=== PATIENT | female | born 1980 | race Caucasian/White ===

== ENCOUNTER 2016-07-19 18:30 | Emergency (ER) | payer BC, OTHER ==
[~2016-07-19] VITALS: Ht 162.6 cm; Wt 53.7 kg
[~2016-07-19 18:30] MED LIST: CALC1CHW47 PO; CHOL100027 PO; CLIN1LOT5 TD; DICY10CA55 PO; HYDR25SU20 PR; LEVO25TA PO; OMEGCAP2 PO; TRET1CRE34 TD
[2016-07-19 18:40] VITALS: BP 112/70; TEMP 36.8; Ht 162.6 cm; Wt 53.7 kg
[2016-07-19] MEDS ORDERED: CLIN300C10 PO (19:22)
[2016-07-19 20:03] VITALS: PULSE 67; O2SAT 99
--- NOTE | 2016-07-20 01:09 | EMERGENCY ROOM VISIT NOTE ---
ED Visit Note First contact with patient: 18:44 CHIEF COMPLAINT: Dental pain. HISTORY OF PRESENT ILLNESS: Ms. Chavez is a 36-year-old white female who ambulates into the ED accompanied by her complaining of right maxillary dental pain. She reports a progressive dental pain for the last 24 hours over the right maxillary wisdom teeth area. She reports her pain started gradually and increased in intensity. She reports that when she felt the area with her tongue she felt a lump in the gumline. She reports she pushed on this area, felt a popping sensation and the sensation of flowing warm fluid in the area and questions if she ruptured a dental abscess. She also reports she is having pain in the area. She describes it as an achy pain. She rates her discomfort 4/10. The pain is nonradiating. She has been using Anbesol with mild relief of her discomfort. Her pain worsens with palpation and chewing. She denies any associated fevers, chills, facial swelling, recent dental trauma, recent sore throat/upper respiratory tract symptoms, difficulty swallowing, difficulty talking. REVIEW OF SYSTEMS: As noted above in History of Present Illness. 8 body systems were reviewed with this patient and found to be negative unless noted above otherwise. PMH: Unspecified stomach disorder, right sided pulmonary emboli and hypothyroidism, status post section 2. CURRENT MEDICATION: Probiotics, levothyroxine.. ALLERGIES TO MEDICATION: Amoxicillin, hydromorphone, macrolides, sulfa, penicillin, mesalamine, nitrofurantoin. SOCIAL HISTORY: Patient is not employed; she lives with her family and feels safe in her home environment; she denies tobacco and alcohol use. PHYSICAL EXAM: Vital Signs: Date Time Temp Pulse Resp B/P Pulse Ox O2 Delivery O2 Flow Rate FiO2 07/19/16 20:03 67 18 99 Room Air 07/19/16 18:40 36.8 70 18 112/70 99 Room Air General: 36 year-old white female in mild distress due to pain, nontoxic appearing, afebrile and hemodynamically stable. Neurological: Awake, alert and oriented to person, place and time. Answering questions appropriately and following commands. Normal gait. Good hand eye coordination. No focal motor or sensory deficits. Skin: Warm, dry and pink. No soft tissue swelling or lesions. HEENT: Atraumatic and normocephalic. Oral cavity is moist and pink. Airway is patent. Uvula is midline and no abscesses are seen. Speech is normal. No drooling. Over the left gingiva there is a small wound in the mucosa of the cheek; patient reports she accidentally bit herself while chewing. No local gingiva erythema or edema. There is no obvious signs of dental decay. The gingiva is still covering the most posterior wisdom teeth. No abscesses, erythema or edema identified. No cervical or submandibular lymphadenopathy. ED COURSE: Patient is assessed as noted above. I had a lengthy conversation with the patient specifically addressing if this was truly an abscess that was ruptured or if this is possible just the eruption/ impaction of her wisdom teeth. Patient is educated about his findings and instructed on her treatment plan; she verbalizes understanding and agreement with this plan. CLINIC IMPRESSION: Dental pain. DISPOSITION: Patient discharged home in stable condition; prior to departure she was reassessed and subjectively reported she was feeling better and rated her discomfort 2/10.. PLAN: Patient was encouraged to alternate ibuprofen and acetaminophen as needed for pain. Patient was prescribed clindamycin 300 mg 4 times a day for 10 days. Patient was encouraged to hold this prescription for any development of facial swelling or fevers. Patient does report she has a follow-up visit at a local dental clinic in 24-48 hours; she was encouraged to keep this appointment. Patient was encouraged to return the ED for uncontrolled pain, facial swelling or fevers or any new/concerning symptoms.
[2016-07-22] MEDS ORDERED: LACT1CAP6 PO (02:26)
== END 2016-07-19 20:03 | disposition home or self-care (01) ==
LOC: C.EDB 18:31 → C.EDD 20:03
DX: K08.89 Other specified disorders of teeth and supporting structures (principal); Z86.711 Personal history of pulmonary embolism; E03.9 Hypothyroidism, unspecified; Z79.899 Other long term (current) drug therapy

== ENCOUNTER 2016-07-22 18:40 | Emergency (ER) | payer BC ==
[~2016-07-22] VITALS: Ht 162.6 cm; Wt 51.3 kg
[~2016-07-22 18:40] MED LIST changes: -CALC1CHW47 PO; -CHOL100027 PO; -CLIN1LOT5 TD; +CLIN300C10 PO; -DICY10CA55 PO; -HYDR25SU20 PR; +LACT1CAP6 PO; -LEVO25TA PO; -OMEGCAP2 PO; -TRET1CRE34 TD
[2016-07-22 18:52] VITALS: TEMP 36.9; Ht 162.6 cm; Wt 51.3 kg
[2016-07-22] MEDS ORDERED: CEFTRIAXONE SOD INJ 1 GM ADDVIAL IV STA (19:15)
[2016-07-22] MEDS ORDERED: LEVO75TA5 PO (19:30)
[2016-07-22 19:57] LABS: BASO % 0.3 %; BASO ABS # 0.03 K/uL (0-0.2); COMPLETE YES; EOS % 1.2 %; HEMATOCRIT 38.5 % (37-47); IG% 0.1 %; LYMPH % 13.4 %; LYMPH ABS # 1.28 K/uL (1.2-3.4); MEAN CELL VOLUME 98.7 fL (80-100); MEAN CORPUSCULAR HEMOGLOBIN 34.1 pg (25-34); MEAN CORPUSCULAR HGB CONC 34.5 g/dl (32-36); MEAN PLATELET VOLUME 10.5 fL (7.4-10.4); MONO % 10.6 %; NEUT % 74.4 %; PLATELET COUNT 276 K/uL (130-400); WHITE BLOOD COUNT 9.53 K/uL (4.8-10.8)
[2016-07-22] MEDS ORDERED: CEPH500C PO (20:18)
--- NOTE | 2016-07-22 20:21 | EMERGENCY ROOM VISIT NOTE ---
History First contact with patient: 18:54 Chief Complaint: FEVER Stated Complaint: FEVER,INFECTION History of Present Illness The patient is a 36 year old female who presents to the Emergency Room with complaints of left facial pain, fever and possible infection. The patient reports that she was here on Monday and diagnosed with a possible dental infection. She was provided a prescription for clindamycin which she reports is now starting to cause abdominal cramping and diarrhea. She does have an extensive history of GI issues, including C. difficile colitis. She has been taking a probiotic. The patient reports that she noticed an area of swelling between her left upper gum and cheek on Monday. She massaged it with her tongue and it popped. The patient reports that she has also had initial left sinus congestion that has also resolved. She denies any difficulty swallowing or fullness of the tongue/4 of her mouth. The patient was seen last night by her dentist who was also uncertain as to whether this could be pain from a wisdom tooth impaction or possible infection. X-rays were unclear as to the etiology of her pain. It was suggested that she continue with her clindamycin antibiotics, and they were going to try to set her up with an oral surgeon. The patient reports that she did have a temperature of nearly 100F this afternoon. She has taken Tylenol PM for her pain. The patient reports multiple antibiotic allergies and intolerances to pain medications. Review of Systems HEENT: Denies dizziness, visual problems, hearing loss, tinnitus. Denies difficulty swallowing. PULMONARY: Denies cough, shortness of breath, sputum production or hemoptysis. CARDIOVASCULAR: Denies chest pain, palpitations, dyspnea on exertion, orthopnea or peripheral edema. GASTROINTESTINAL: Denies diarrhea, constipation, nausea, vomiting, or abdominal pain. GENITOURINARY: Denies dysuria, frequency, urgency or nocturia. NEUROLOGIC: Denies history of epilepsy, CVA, TIA or chronic headaches. MUSCULOSKELETAL: Denies history of joint tenderness/swelling. SKIN: Denies rashes or lesions. PSYCHIATRIC: Denies history of depression or mental illness. ENDOCRINE: Denies history of diabetes or thyroid disorders. Past Medical/Surgical History Medical Problems: (1) Anti-thrombin III (2) Clostridium difficile colitis (3) Deep venous thrombosis (4) History of - section (5) Hypothyroidism (6) PRIMARY HYPERCOAGULABLE STATE (7) Pulmonary embolism Family History Unremarkable Social History Smoking Status: Never Smoker Alcohol Use: none Drug Use: none Marital Status: Housing Status: lives with family Occupation Status: employed Current/Historical Medications Scheduled Cephalexin Monohydrate (Keflex), 500 MG PO QID Clindamycin Hcl (Clindamycin Hcl), 1 CAP PO QID Lactobacillus (Probiotic), 1 CAP PO DAILY Levothyroxine Sodium (Levothyroxine Sodium), 75 MCG PO DAILY Allergies Coded Allergies: Sulfa Drugs (Verified Allergy, Severe, ANAPHYLAXIS, 03/23/12) Amoxicillin (Verified Allergy, Mild, rash, 03/23/12) Macrolides (Verified Allergy, Unknown, rash, 08/02/13) pt Nitrofurantoin (Verified Allergy, Unknown, 06/22/12) Penicillins (Verified Allergy, Unknown, 06/22/12) Hydromorphone (Verified Adverse Reaction, Mild, Pt states muscles in neck& all over become tight and painful, 06/22/12) Mesalamine (Verified Adverse Reaction, Unknown, multiple side effects, ) pt Physical Exam Vital Signs Date Time Temp Pulse Resp B/P Pulse Ox O2 Delivery O2 Flow Rate FiO2 07/22/16 18:52 36.9 95 18 113/70 96 Room Air Physical Exam CONSTITUTIONAL: Healthy and well nourished. Alert and oriented X 3 with positive affect. Patient does not appear acutely or toxic. HEENT: Normocephalic, atraumatic. Pupils equal, round and reactive. No facial edema or erythema noted. OROPHARYNX: Examination of the right maxillary teeth, gingiva, hard palate and buccal membranes does not show any erythema, fluctuance or pointing. She has no tenderness to palpation or percussion of the dentition. No evidence for a pharyngeal abscess or Aly's angina. NECK: Full active range of motion without discomfort. RESPIRATORY: Clear to auscultation bilaterally with no wheezing, crackles, rhonchi or stridor. CARDIOVASCULAR: Regular rate and rhythm with no murmurs, rubs or gallops. GASTROINTESTINAL: Bowel sounds present in all quadrants. Soft and nontender to palpation. MUSCULOSKELETAL: Full range of motion of all joints without discomfort. INTEGUMENTARY: No rash or other significant dermatologic conditions noted. NEUROLOGIC: Facial sensations are intact. Medical Decision & Procedures Laboratory Results 07/22/16 19:30 Red Blood Count 3.90, Mean Corpuscular Volume 98.7, Mean Corpuscular Hemoglobin 34.1, Mean Corpuscular Hemoglobin Concent 34.5, Mean Platelet Volume 10.5, Neutrophils (%) (Auto) 74.4, Lymphocytes (%) (Auto) 13.4, Monocytes (%) (Auto) 10.6, Eosinophils (%) (Auto) 1.2, Basophils (%) (Auto) 0.3, Neutrophils # (Auto ) 7.09, Lymphocytes # (Auto) 1.28, Monocytes # (Auto) 1.01, Eosinophils # (Auto ) 0.11, Basophils # (Auto) 0.03 Test 07/22/16 19:30 White Blood Count 9.53 K/uL (4.8-10.8) Red Blood Count 3.90 M/uL (4.2-5.4) Hemoglobin 13.3 g/dL (12.0-16.0) Hematocrit 38.5 % (37-47) Mean Corpuscular Volume 98.7 fL (80-100) Mean Corpuscular Hemoglobin 34.1 pg (25-34) Mean Corpuscular Hemoglobin Concent 34.5 g/dl (32-36) Platelet Count 276 K/uL (130-400) Mean Platelet Volume 10.5 fL (7.4-10.4) Neutrophils (%) (Auto) 74.4 % Lymphocytes (%) (Auto) 13.4 % Monocytes (%) (Auto) 10.6 % Eosinophils (%) (Auto) 1.2 % Basophils (%) (Auto) 0.3 % Neutrophils # (Auto) 7.09 K/uL (1.4-6.5) Lymphocytes # (Auto) 1.28 K/uL (1.2-3.4) Monocytes # (Auto) 1.01 K/uL (0.11-0.59) Eosinophils # (Auto) 0.11 K/uL (0-0.5) Basophils # (Auto) 0.03 K/uL (0-0.2) RDW Standard Deviation 44.1 fL (36.4-46.3) RDW Coefficient of Variation 12.2 % (11.5-14.5) Immature Granulocyte % (Auto) 0.1 % Immature Granulocyte # (Auto) 0.01 K/uL (0.00-0.02) The above labs were reviewed. Medications Administered Medications (Trade) Dose Ordered Sig/Aida Route Start Time Stop Time Status Last Admin Dose Admin Ceftriaxone Sodium (Rocephin Inj) 1 gm NOW STAT IV 07/22/16 19:15 07/22/16 19:17 DC 07/22/16 19:42 1 GM ED Course Patient history and physical exam were performed. Nurse's notes were reviewed. Vital signs were reviewed and were normal. The patient is afebrile, normotensive and not tachycardic. Because of my concern for other possible infectious etiology such as sinusitis or maxillary infection, I did suggest performing a CT of the facial bones. The patient and mother politely declined, stating that she has had multiple CTs in the past, and does not want any additional unnecessary radiation. I did explain that if his is indeed an infectious etiology, the treatment should be relatively the same with antibiotics. Unfortunately, the patient has multiple antibiotic allergies. I did suggest checking some lab work and administering IV Rocephin and Keflex by mouth as an outpatient. The patient and mother were in agreement. IV access was established, and labs were drawn. The patient received Rocephin 1 g IVP without any adverse reaction. Review of labs shows no significant findings. The patient will be provided a prescription for Keflex 500 mg 4 times a day 7 days. The patient was encouraged to continue with Tylenol with Benadryl as needed for pain. I did suggest that she discuss further management with her dentist. She was instructed to return to the emergency department for any progressively worsening situation. The patient was happy with plan of care, and voiced understanding of all discharge instructions. Impression Primary Impression: Dental infection Departure Information Prescriptions Cephalexin Monohydrate (Keflex) 500 Mg Cap 500 MG PO QID for 7 Days, #28 CAP Prov: Luke Rodriguez PA 07/22/16 Referrals Deidre Huynh M.D. (PCP) Patient Instructions My [facility]
[2016-07-22 20:22] LABS: BUN/CREATININE RATIO 19.9 (10-20); CREATININE 0.79 mg/dl (0.60-1.20); POTASSIUM 4.1 mmol/L (3.5-5.1)
[2016-07-22] MEDS ORDERED: CEPHALEXIN 500MG HOME PACK 1 EA BTL PO ONE (20:30)
[2016-07-22 20:47] VITALS: BP 109/55; PULSE 80; O2SAT 97
== END 2016-07-22 20:49 | disposition home or self-care (01) ==
LOC: C.EDB 18:40 → C.EDC 20:49
DX: K04.7 Periapical abscess without sinus (principal); D68.59 Other primary thrombophilia; Z86.718 Personal history of other venous thrombosis and embolism; E03.9 Hypothyroidism, unspecified; Z86.711 Personal history of pulmonary embolism; Z79.899 Other long term (current) drug therapy

== ENCOUNTER 2017-03-15 14:54 | Emergency (ER) | payer BC ==
[~2017-03-15] VITALS: Ht 162.6 cm; Wt 52.0 kg
[~2017-03-15 14:54] MED LIST changes: +LEVO75TA5 PO
[2017-03-15 14:58] VITALS: TEMP 36.7; Ht 162.6 cm; Wt 52.0 kg
[2017-03-15 15:45] LABS: BASO % 0.4 %; BASO ABS # 0.03 K/uL (0-0.2); COMPLETE YES; EOS % 1.3 %; HEMATOCRIT 40.6 % (37-47); IG% 0.1 %; LYMPH ABS # 1.59 K/uL (1.2-3.4); MEAN CORPUSCULAR HEMOGLOBIN 34.1 pg (25-34); MEAN CORPUSCULAR HGB CONC 33.7 g/dl (32-36); MEAN PLATELET VOLUME 10.5 fL (7.4-10.4); MONO % 8.2 %; PLATELET COUNT 311 K/uL (130-400); RED BLOOD COUNT 4.02 M/uL (4.2-5.4); WHITE BLOOD COUNT 7.94 K/uL (4.8-10.8)
--- NOTE | 2017-03-15 15:46 | EMERGENCY ROOM VISIT NOTE ---
History Report prepared by Jack: Liz Phan Under the Supervision of: Dr. Be Farley M.D. 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 She notes the chest pain is radiating to her shoulder blades and ribs underneath her breasts. She currently rates her pain a 2/10 in severity. She also notes her heart has been racing, though it is not skipping. She notes initially experiencing the pain in the first week of January when she was eating. She has seen her PCP, Dr. Huynh and was prescribed a protonic and sucralfate. She notes completing the sucralfate and the pain went away. She notes the pain returned two weeks ago while taking only the protonic and worsens with exertion, causing shortness of breath. She notes that relaxation relieves the pain. She recently had an endoscopy yesterday and the results came back clean, though the pain still persists. She has a history of hypothyroidism, PE, palpitations. She reports the PE was due to her control, back in Mar 2010. She was on Coumadin for a year following the PE. She denies any fevers, headaches, diaphoresis, abdominal pain, back pain, , recent travels, leg pain or swelling. She denies any history of cardiac or pancreatic problems. 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 Review of Systems See HPI for pertinent positives & negatives. A total of 10 systems reviewed and were otherwise negative. Past Medical & Surgical Medical Problems: (1) Anti-thrombin III (2) Clostridium difficile colitis (3) Deep venous thrombosis (4) History of - section (5) Hypothyroidism (6) PRIMARY HYPERCOAGULABLE STATE (7) Pulmonary embolism Old medical records were reviewed. Nurse's notes were reviewed and I agree with. Family History No pertinent family history obtained. Social History Smoking Status: Never Smoker Alcohol Use: occasionally (wine once a week) Drug Use: none Marital Status: Housing Status: lives with family Occupation Status: employed Current/Historical Medications Scheduled Levothyroxine Sodium (Levothyroxine Sodium), 75 MCG PO DAILY Pantoprazole (Protonix), 40 MG PO DAILY Sucralfate (Carafate), 1 TAB PO QID Allergies Coded Allergies: Sulfa Drugs (Verified Allergy, Severe, ANAPHYLAXIS, 03/15/17) Amoxicillin (Verified Allergy, Mild, rash, 03/15/17) Macrolides (Verified Allergy, Unknown, rash, 03/15/17) pt Nitrofurantoin (Verified Allergy, Unknown, 03/15/17) Penicillins (Verified Allergy, Unknown, 03/15/17) Hydromorphone (Verified Adverse Reaction, Mild, Pt states muscles in neck& all over become tight and painful, 03/15/17) Mesalamine (Verified Adverse Reaction, Unknown, multiple side effects, 03/15/17) pt Physical Exam Vital Signs Date Time Temp Pulse Resp B/P (MAP) Pulse Ox O2 Delivery O2 Flow Rate FiO2 03/15/17 17:39 71 20 103/61 99 Room Air 03/15/17 15:45 95 Room Air 03/15/17 14:58 36.7 95 20 112/71 97 Room Air Physical Exam General: Non-ill appearing young female in no acute distress. HEENT: Normal cephalic atraumatic. Pupils are equal round and reactive to light. Extraocular movements are intact. Oropharynx is pink with moist mucous membranes. No swelling of the mouth lips or tongue. Neck: Supple with a midline trachea. No meningeal signs or stiffness, no JVD or bruits. No Stridor. Chest: Clear to auscultation bilaterally. No wheezes or rhonchi. No increased work of breathing. Heart: regular rate and rhythm. Abdomen: Soft nontender, nondistended without rebound guarding or rigidity. Extremities: No cyanosis clubbing or edema. No calf tenderness or assymetry Spine/Back. Non tender to palpation. No CVA tenderness Skin: Good turgor without rashes. Neurologic exam: Cranial nerves two through 12 are intact. Motor and sensation are intact and symmetrical throughout. Medical Decision & Procedures ER Provider Diagnostic Interpretation: Radiology results as stated below per my review and radiologist interpretation: SINGLE VIEW CHEST CLINICAL HISTORY: Atypical chest pain. FINDINGS: An AP, portable, upright chest radiograph is compared to study dated 07/27/2013. The cardiomediastinal silhouette is unremarkable. The lungs and pleural spaces are clear. No pneumothorax is seen. The bony thorax is grossly intact. IMPRESSION: No active disease in the chest. Electronically signed by: Antoine Rosario M.D. 03/15/2017 4:05 PM Dictated Date/Time: 03/15/2017 4:05 PM Laboratory Results 03/15/17 15:28 Red Blood Count 4.02, Mean Corpuscular Volume 101.0, Mean Corpuscular Hemoglobin 34.1, Mean Corpuscular Hemoglobin Concent 33.7, Mean Platelet Volume 10.5, Neutrophils (%) (Auto) 70.0, Lymphocytes (%) (Auto) 20.0, Monocytes (%) ( Auto) 8.2, Eosinophils (%) (Auto) 1.3, Basophils (%) (Auto) 0.4, Neutrophils # ( Auto) 5.56, Lymphocytes # (Auto) 1.59, Monocytes # (Auto) 0.65, Eosinophils # ( Auto) 0.10, Basophils # (Auto) 0.03 03/15/17 15:28 Test 03/15/17 15:28 03/15/17 15:33 White Blood Count 7.94 K/uL (4.8-10.8) Red Blood Count 4.02 M/uL (4.2-5.4) Hemoglobin 13.7 g/dL (12.0-16.0) Hematocrit 40.6 % (37-47) Mean Corpuscular Volume 101.0 fL (80-100) Mean Corpuscular Hemoglobin 34.1 pg (25-34) Mean Corpuscular Hemoglobin Concent 33.7 g/dl (32-36) Platelet Count 311 K/uL (130-400) Mean Platelet Volume 10.5 fL (7.4-10.4) Neutrophils (%) (Auto) 70.0 % Lymphocytes (%) (Auto) 20.0 % Monocytes (%) (Auto) 8.2 % Eosinophils (%) (Auto) 1.3 % Basophils (%) (Auto) 0.4 % Neutrophils # (Auto) 5.56 K/uL (1.4-6.5) Lymphocytes # (Auto) 1.59 K/uL (1.2-3.4) Monocytes # (Auto) 0.65 K/uL (0.11-0.59) Eosinophils # (Auto) 0.10 K/uL (0-0.5) Basophils # (Auto) 0.03 K/uL (0-0.2) RDW Standard Deviation 46.0 fL (36.4-46.3) RDW Coefficient of Variation 12.6 % (11.5-14.5) Immature Granulocyte % (Auto) 0.1 % Immature Granulocyte # (Auto) 0.01 K/uL (0.00-0.02) Urine Test NEG (NEG) Anion Gap 5.0 mmol/L (3-11) Est Creatinine Clear Calc Drug Dose 94.8 ml/min Estimated GFR () 131.3 Estimated GFR (Non- 113.3 BUN/Creatinine Ratio 16.6 (10-20) Calcium Level 8.9 mg/dl (8.5-10.1) Total Bilirubin 0.6 mg/dl (0.2-1) Direct Bilirubin 0.1 mg/dl (0-0.2) Aspartate Amino Transf (AST/SGOT) 13 U/L (15-37) Alanine Aminotransferase (ALT/SGPT) 17 U/L (12-78) Alkaline Phosphatase 81 U/L (45-117) Total Creatine Kinase 77 U/L (26-192) Creatine Kinase MB < 0.5 ng/ml (0.5-3.6) Creatine Kinase MB Ratio (0-3.0) Total Protein 7.7 gm/dl (6.4-8.2) Albumin 3.9 gm/dl (3.4-5.0) Lipase 145 U/L (73-393) Thyroid Stimulating Hormone (TSH) 1.170 uIu/ml (0.300-4.500) Bedside D-Dimer > 450 ng/mlFEU (0-450) Bedside Troponin I < 0.030 ng/ml (0-0.045) Laboratory studies as stated above per my review. ECG Indication: chest pain Rate (beats per minute): 77 Rhythm: normal sinus Findings: no acute ischemic change, no ectopy Change: no significant change (compared to 08/02/2013) ED Course 1459: Past medical records reviewed. The patient was evaluated in room B5, and a complete history and physical examination were performed. 1655 I reassessed the patient at this time. I discussed the risks and benefits of the CT scan. She is feeling better and resting comfortably 1720: I reassessed the patient at this time. She does not want a CT scan at this time. She is feeling better and resting comfortably. I discussed the results and treatment plan with the patient. I answered all pertaining questions that she had. She expressed understanding and verbalized agreement. The patient will be discharged home. Medical Decision Differentials include, but are not limited to: cardiac disease, arrhythmia, thyroid disease, PE, GI, trauma, and electrolyte metabolic abnormality. This patient comes in as described above. She was placed in room B5. She is here for treatment and evaluation of chest pain is been going off and on since January. She had a recent GI workup with normal endoscopy yesterday as per the patient. She appears well and has stable vital signs. IV access established EKG was obtained as well as chest x-ray multiple blood testing. She was reassessed frequently. Her EKG does not show any acute ischemic changes and no change compared old. Chest x-ray was unremarkable and shows nothing to suggest congestive heart failure pneumonia or pneumothorax she's no acute electrolyte or metabolic abnormalities. Nothing to suggest acute thyroid problem. Her cardiac enzymes are not elevated. She does have a mildly elevated d-dimer at 610. In light of this I suggested we do a CAT scan to rule out PE. I talked to the patient and her mother at length she is very reluctant to have the CAT scan as she's had multiple CAT scans in the past as concerned about radiation. She had a PE many years ago while she was on control and says that this feels completely different. I explained to her that we cannot adequately rule out PE without the CAT scan. Certainly there is risk with radiation as well. She acknowledges this and wants to go home and follow-up with her doctor and have an echo and cardiac workup as she feels that's more likely the etiology. I think this is reasonable as I feel chance of PE is actually very low. Her symptoms may be related to GI or anxiety or musculoskeletal as well. I encourage her return if she reconsiders getting the CAT scan has worsening of symptoms, shortness of breath, any new problems or concerns. The patient and her mother were happy with plan and she was discharged to home. Medication Reconcilliation Current Medication List: was personally reviewed by me Blood Pressure Screening Patient's blood pressure: Normal blood pressure Impression Primary Impression: Substernal precordial chest pain Scribe Attestation The scribe's documentation has been prepared under my direction and personally reviewed by me in its entirety. I confirm that the note above accurately reflects all work, treatment, procedures, and medical decision making performed by me. Departure Information Dispostion Home / Self-Care Referrals Deidre Huynh M.D. (PCP) Forms Call Back Authorization, HOME CARE DOCUMENTATION FORM, IMPORTANT VISIT INFORMATION Patient Instructions My [facility] [employer] Additional Instructions Rest. Drink plenty of fluids Return if: Increasing pain, worsening symptoms, any new problems or concerns Follow-up with your doctor this week for recheck and have a referral to a hand twister
[2017-03-15] MEDS ORDERED: SUCR1TAB29 PO (15:48)
[2017-03-15] MEDS ORDERED: PANT40TA PO (15:48)
[2017-03-15 15:52] LABS: POINT OF CARE TROPONIN I < 0.030 ng/ml (0-0.045)
[2017-03-15 16:04] LABS: ALT/SGPT 17 U/L (12-78); BLOOD UREA NITROGEN 11 mg/dl (7-18); BUN/CREATININE RATIO 16.6 (10-20); CALCIUM 8.9 mg/dl (8.5-10.1); CARBON DIOXIDE 29 mmol/L (21-32); CHLORIDE 105 mmol/L (98-107); CREATININE 0.68 mg/dl (0.60-1.20); GLUCOSE 76 mg/dl (70-99); POTASSIUM 3.4 mmol/L (3.5-5.1); SODIUM 139 mmol/L (136-145)
--- NOTE | 2017-03-15 16:06 | DIAGNOSTIC IMAGING REPORT ---
SINGLE VIEW CHEST CLINICAL HISTORY: Atypical chest pain. FINDINGS: An AP, portable, upright chest radiograph is compared to study dated 07/27/2013. The cardiomediastinal silhouette is unremarkable. The lungs and pleural spaces are clear. No pneumothorax is seen. The bony thorax is grossly intact. IMPRESSION: No active disease in the chest. Electronically signed by: Antoine Rosario M.D. 03/15/2017 4:05 PM Dictated Date/Time: 03/15/2017 4:05 PM
[2017-03-15 16:15] LABS: ALKALINE PHOSPHATASE 81 U/L (45-117); AST/SGOT 13 U/L (15-37)
[2017-03-15] MEDS ORDERED: OPTIRAY 320 IV PRN (17:00)
[2017-03-15 17:39] VITALS: BP 103/61; PULSE 71; O2SAT 99
== END 2017-03-15 17:54 | disposition home or self-care (01) ==
LOC: C.EDB 14:56
DX: R07.1 Chest pain on breathing (principal); E03.9 Hypothyroidism, unspecified; Z86.711 Personal history of pulmonary embolism; Z86.718 Personal history of other venous thrombosis and embolism; Z79.899 Other long term (current) drug therapy; Z88.0 Allergy status to penicillin; Z88.1 Allergy status to other antibiotic agents; Z88.2 Allergy status to sulfonamides; Z88.5 Allergy status to narcotic agent; Z88.8 Allergy status to other drugs, medicaments and biological substances

== ENCOUNTER 2017-03-17 11:46 | Emergency (ER) | payer BC ==
[~2017-03-17] VITALS: Ht 162.6 cm; Wt 51.6 kg
[~2017-03-17 11:46] MED LIST changes: +PANT40TA PO; +SUCR1TAB29 PO
[2017-03-17 11:51] VITALS: TEMP 36.9; Ht 162.6 cm; Wt 51.6 kg
[2017-03-17] MEDS ORDERED: GI COCKTAIL PO STA (12:39)
[2017-03-17 12:42] LABS: BASO % 0.4 %; BASO ABS # 0.03 K/uL (0-0.2); COMPLETE YES; EOS % 1.5 %; HEMATOCRIT 39.9 % (37-47); IG% 0.3 %; LYMPH % 19.5 %; LYMPH ABS # 1.54 K/uL (1.2-3.4); MEAN CELL VOLUME 101.5 fL (80-100); MEAN CORPUSCULAR HEMOGLOBIN 33.8 pg (25-34); MEAN CORPUSCULAR HGB CONC 33.3 g/dl (32-36); MEAN PLATELET VOLUME 10.8 fL (7.4-10.4); MONO % 7.9 %; NEUT % 70.4 %; PLATELET COUNT 287 K/uL (130-400); RED BLOOD COUNT 3.93 M/uL (4.2-5.4); WHITE BLOOD COUNT 7.89 K/uL (4.8-10.8)
[2017-03-17 13:01] LABS: ALT/SGPT 16 U/L (12-78); BLOOD UREA NITROGEN 16 mg/dl (7-18); BUN/CREATININE RATIO 21.3 (10-20); CALCIUM 8.8 mg/dl (8.5-10.1); CARBON DIOXIDE 29 mmol/L (21-32); CHLORIDE 106 mmol/L (98-107); CREATININE 0.74 mg/dl (0.60-1.20); GLUCOSE 94 mg/dl (70-99); PARTIAL THROMBOPLASTIN RATIO 0.9; POTASSIUM 3.4 mmol/L (3.5-5.1); PROTHROMBIN TIME (PATIENT) 10.6 SECONDS (9.0-12.0); SODIUM 141 mmol/L (136-145)
[2017-03-17 13:05] LABS: ALKALINE PHOSPHATASE 78 U/L (45-117); AST/SGOT 14 U/L (15-37)
[2017-03-17] MEDS ORDERED: OPTIRAY 320 IV PRN (13:15)
[2017-03-17] MEDS ORDERED: POTASSIUM CHLORIDE 20 MEQ TABCR PO STA (13:19)
[2017-03-17 13:22] LABS: PREG INTERNAL NEGATIVE QC NEG CLEAR BACKGROUND; PREG INTERNAL POSITIVE QC POS CONTROL LINE
[2017-03-17] MEDS ORDERED: ALUMINUM/MAGNESIUM SUSP 30 ML UDC ONE (13:24)
[2017-03-17] MEDS ORDERED: POTASSIUM CHLORIDE 10 MEQ TABCR ONE (13:24)
--- NOTE | 2017-03-17 13:32 | EMERGENCY ROOM VISIT NOTE ---
History Report prepared by Jack: Liz Phan Under the Supervision of: Dr. Shyam Charles M.D. First contact with patient: 12:26 Chief Complaint: CARDIAC ASSESSMENT Stated Complaint: PAIN IN LEFT SHOULDER AREA-CHEST Nursing Triage Summary: pt reports CP x2 months, was being treated for a stomach ulcer, EGD performed and was clear, pain has changed now into her left shoulder and wrapping around her back, saw residential roofer helper Dr. Zarate yesterday and wanted to schedule stress test outpt for next week, but pain changed location/intensity today so pt presented to ED. 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 She reports waking up to increased chest pain radiating to her left shoulder blade and she has difficulty breathing. She currently rates her pain a 6/10 in severity. She was recently seen in the ED on March 15, 2017 for the same symptoms, though the pain has increased and moved to her left shoulder. She notes that her labs from the ED showed elevated D-dimer. She was advised by her residential roofer helper, Dr. Zarate to come in to the ED. She notes a recent endoscopy and the results were negative. She notes being prescribed protonic and sucralfate, noting that the sucralfate has helped the pain. She has an expected appointment next week with her residential roofer helper. She has a history of blood clots due to control. She denies abdominal pain, leg pain, leg swelling, , or any recent long distant travels. She has a history of a stomach ulcer. 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 She denies leg pain, leg swelling, , or recent long distant travels. Review of Systems See HPI for pertinent positives & negatives. A total of 10 systems reviewed and were otherwise negative. Past Medical & Surgical Medical Problems: (1) Anti-thrombin III (2) Clostridium difficile colitis (3) Deep venous thrombosis (4) History of - section (5) Hypothyroidism (6) PRIMARY HYPERCOAGULABLE STATE (7) Pulmonary embolism Family History No pertinent family history reported. Social History Smoking Status: Never Smoker Alcohol Use: occasionally Drug Use: none Marital Status: Housing Status: lives with family Occupation Status: employed Current/Historical Medications Scheduled Levothyroxine Sodium (Levothyroxine Sodium), 75 MCG PO DAILY Pantoprazole (Protonix), 40 MG PO DAILY Sucralfate (Carafate), 1 TAB PO QID Allergies Coded Allergies: Sulfa Drugs (Verified Allergy, Severe, ANAPHYLAXIS, 03/17/17) Amoxicillin (Verified Allergy, Mild, rash, 03/17/17) Macrolides (Verified Allergy, Unknown, rash, 03/17/17) pt Nitrofurantoin (Verified Allergy, Unknown, 03/17/17) Penicillins (Verified Allergy, Unknown, 03/17/17) Hydromorphone (Verified Adverse Reaction, Mild, Pt states muscles in neck& all over become tight and painful, 03/17/17) Mesalamine (Verified Adverse Reaction, Unknown, multiple side effects, 03/17/17) pt Physical Exam Vital Signs Date Time Temp Pulse Resp B/P (MAP) Pulse Ox O2 Delivery O2 Flow Rate FiO2 03/17/17 14:11 78 18 102/62 97 Room Air 03/17/17 12:57 69 18 100/67 98 Room Air 03/17/17 12:08 75 03/17/17 12:05 73 18 103/59 98 Room Air 03/17/17 11:51 36.9 84 18 109/66 98 Room Air Physical Exam GENERAL: Patient is a healthy-appearing well-nourished middle-aged female. HEAD: Normocephalic atraumatic EYES: Ocular movements intact pupils equal and react to light OROPHARYNX mucous membranes are moist no exudates present no erythema or edema present NECK: Supple no nuchal rigidity CHEST: Good equal expansion LUNGS: Clear and equal to auscultation CARDIAC: Normal S1 and S2 ABDOMEN: Soft nontender no guarding BACK: No CVA tenderness EXTREMITIES: No pain upon palpation normal muscle strength in all groups no clubbing cyanosis or edema NEURO: Patient is following commands and answering questions appropriately. Alert and oriented x3 Cranial Nerves 2-12 grossly intact Medical Decision & Procedures Laboratory Results 03/17/17 12:05 Red Blood Count 3.93, Mean Corpuscular Volume 101.5, Mean Corpuscular Hemoglobin 33.8, Mean Corpuscular Hemoglobin Concent 33.3, Mean Platelet Volume 10.8, Neutrophils (%) (Auto) 70.4, Lymphocytes (%) (Auto) 19.5, Monocytes (%) ( Auto) 7.9, Eosinophils (%) (Auto) 1.5, Basophils (%) (Auto) 0.4, Neutrophils # ( Auto) 5.56, Lymphocytes # (Auto) 1.54, Monocytes # (Auto) 0.62, Eosinophils # ( Auto) 0.12, Basophils # (Auto) 0.03 03/17/17 12:05 Test 03/17/17 12:05 White Blood Count 7.89 K/uL (4.8-10.8) Red Blood Count 3.93 M/uL (4.2-5.4) Hemoglobin 13.3 g/dL (12.0-16.0) Hematocrit 39.9 % (37-47) Mean Corpuscular Volume 101.5 fL (80-100) Mean Corpuscular Hemoglobin 33.8 pg (25-34) Mean Corpuscular Hemoglobin Concent 33.3 g/dl (32-36) Platelet Count 287 K/uL (130-400) Mean Platelet Volume 10.8 fL (7.4-10.4) Neutrophils (%) (Auto) 70.4 % Lymphocytes (%) (Auto) 19.5 % Monocytes (%) (Auto) 7.9 % Eosinophils (%) (Auto) 1.5 % Basophils (%) (Auto) 0.4 % Neutrophils # (Auto) 5.56 K/uL (1.4-6.5) Lymphocytes # (Auto) 1.54 K/uL (1.2-3.4) Monocytes # (Auto) 0.62 K/uL (0.11-0.59) Eosinophils # (Auto) 0.12 K/uL (0-0.5) Basophils # (Auto) 0.03 K/uL (0-0.2) RDW Standard Deviation 46.6 fL (36.4-46.3) RDW Coefficient of Variation 12.6 % (11.5-14.5) Immature Granulocyte % (Auto) 0.3 % Immature Granulocyte # (Auto) 0.02 K/uL (0.00-0.02) Prothrombin Time 10.6 SECONDS (9.0-12.0) Prothromb Time International Ratio 1.0 (0.9-1.1) Activated Partial Thromboplast Time 24.5 SECONDS (21.0-31.0) Partial Thromboplastin Ratio 0.9 D-Dimer 440 ug/L FEU (0-500) Anion Gap 6.0 mmol/L (3-11) Est Creatinine Clear Calc Drug Dose 86.4 ml/min Estimated GFR () 121.7 Estimated GFR (Non- 105.0 BUN/Creatinine Ratio 21.3 (10-20) Calcium Level 8.8 mg/dl (8.5-10.1) Total Bilirubin 1.0 mg/dl (0.2-1) Direct Bilirubin 0.3 mg/dl (0-0.2) Aspartate Amino Transf (AST/SGOT) 14 U/L (15-37) Alanine Aminotransferase (ALT/SGPT) 16 U/L (12-78) Alkaline Phosphatase 78 U/L (45-117) Total Creatine Kinase 63 U/L (26-192) Creatine Kinase MB < 0.5 ng/ml (0.5-3.6) Creatine Kinase MB Ratio (0-3.0) Troponin I < 0.015 ng/ml (0-0.045) Total Protein 7.4 gm/dl (6.4-8.2) Albumin 4.0 gm/dl (3.4-5.0) Lipase 123 U/L (73-393) Human Chorionic Gonadotropin, Qual NEG (NEG) Lyme Disease IgG Antibody NEG (NEG) Monoscreen NEG (NEG) Labs reviewed by ED physician. Medications Administered Medications (Trade) Dose Ordered Sig/Aida Route Start Time Stop Time Status Last Admin Dose Admin Miscellaneous Medication (Gi Cocktail) 24 ml NOW STAT PO 03/17/17 12:39 03/17/17 12:42 DC 03/17/17 12:39 24 ML Potassium Chloride (Klor-Con M10) 40 meq STK-MED ONCE .ROUTE 03/17/17 13:24 03/17/17 13:25 DC 03/17/17 13:29 40 MEQ ECG Indication: chest pain, other (left shoulder pain) Rate (beats per minute): 68 Rhythm: normal sinus Findings: no acute ischemic change, no ectopy, other (old anterior infarct) Change: no significant change (03/15/2017) ED Course 1226: Past medical records reviewed. The patient was evaluated in room B5. A complete history and physical examination was performed. 1239: Ordered GI Cocktail 24 ml PO 1304: I reassessed the patient at this time. She is feeling better and resting comfortably. 1319: Ordered Potassium-Chloride 40 meq IV 1332: I reassessed the patient at this time. She is feeling better and resting comfortably. I discussed the results and treatment plan with the patient. I answered all pertaining questions that she had. She expressed understanding and verbalized agreement. The patient will be discharged home. Medical Decision Prior records/ancillary studies reviewed. Triage Nursing notes reviewed. The patient's history was concerning for chest pain. Differential diagnosis: Etiologies such as cardiac ischemia, aortic dissection, pulmonary embolism, pneumonia, pneumothorax, musculoskeletal, infections, pericarditis, myocarditis , esophageal rupture, gastrointestinal, as well as others were entertained. This is a 37-year-old female who presents emergency department complaining of shoulder pain. The patient is in the process of being evaluated by her residential roofer helper and has an echo scheduled next week. She became concerned when her chest pain moved up into her shoulder that she was recently seen in the emergency department and had a positive d-dimer. In addition the patient also had a history of blood clots in the past. I will note she is not tachycardic here or hypoxic. The patient is very reluctant to get a CAT scan of the chest that she has had multiple CAT scans previously. Using shared medical decision- making we noted that the patient has a normal d-dimer here in the emergency department today and in addition has normal cardiac enzymes and an unchanged EKG. I gave the patient the option of being admitted for observation to rule out her heart however she does not wish to do this. She wishes to follow-up with cardiology. She was given a GI cocktail in the emergency Department with some improvement in her symptoms Medication Reconcilliation Current Medication List: was personally reviewed by me Blood Pressure Screening Patient's blood pressure: Normal blood pressure Impression Primary Impression: Left shoulder pain Scribe Attestation The scribe's documentation has been prepared under my direction and personally reviewed by me in its entirety. I confirm that the note above accurately reflects all work, treatment, procedures, and medical decision making performed by me. Departure Information Dispostion Home / Self-Care Referrals Deidre Huynh M.D. (PCP) Forms IMPORTANT VISIT INFORMATION, Work Instructions Patient Instructions My [facility] Additional Instructions Follow up with Dr Zarate's office You have been examined and treated today on an emergency basis only. This is not a substitute for, or an effort to provide, complete comprehensive medical care. It is impossible to recognize and treat all injuries or illnesses in a single emergency department visit. It is therefore important that you follow up closely with Dr Huynh. Call as soon as possible for an appointment. Thank you for your time and consideration. I look forward to speaking with you again soon. Please don't hesitate to call us if you have any questions. Problem Qualifiers Primary Impression: Left shoulder pain Chronicity: acute Qualified Codes: M25.512 - Pain in left shoulder
[2017-03-17 13:44] LABS: LYME DISEASE AB IGG NEG (NEG)
[2017-03-17 13:49] LABS: LYME DISEASE AB IGM EQUIVOCAL (NEG)
[2017-03-17 14:11] VITALS: BP 102/62; PULSE 78; O2SAT 97
== END 2017-03-17 14:15 | disposition home or self-care (01) ==
LOC: C.EDB 11:47
DX: M25.512 Pain in left shoulder (principal); Z86.718 Personal history of other venous thrombosis and embolism; Z86.711 Personal history of pulmonary embolism; E03.9 Hypothyroidism, unspecified; Z98.891 History of uterine scar from previous surgery; Z79.899 Other long term (current) drug therapy

== ENCOUNTER → 2017-07-05 | Outpatient (CLI) | payer OTHER ==
[~2017-07-05] MED LIST changes: -CLIN300C10 PO; +GADAVIST IV PRN; -LACT1CAP6 PO
--- NOTE | 2017-07-06 07:20 | DIAGNOSTIC IMAGING REPORT ---
MRI THE ORBITS WITHOUT A WITH GADOLINIUM CLINICAL HISTORY: Right orbital pain and swelling. COMPARISON STUDY: No previous studies for comparison. FINDINGS: Imaging was performed in the sagittal axial and coronal planes. Imaging before and after the administration of 5 cc of intravenous Gadavist. There is no evidence of hydrocephalus. No ocular masses are visualized. No orbital masses are visualized. No focal extraocular muscle masses are visualized. Visualized portions of the paranasal sinuses appear clear. Very slight lacrimal gland asymmetry right greater than left is likely developmental IMPRESSION: No significant abnormalities identified. Electronically signed by: Martin Morales M.D. 07/06/2017 7:19 AM Dictated Date/Time: 07/06/2017 7:15 AM
== END | disposition home or self-care (01) ==
LOC: C.MRI 19:30
PROVIDERS: ATTEND Family Medicine
DX: H57.11 Ocular pain, right eye (principal); H05.20 Unspecified exophthalmos

== ENCOUNTER 2025-01-21 20:14 | Inpatient (IN) ==
[2025-01-21] MEDS: LORazepam 1 MG/1 ML SYR ED Inj Use IV STA (20:38)
[2025-01-21] MEDS: ASPIRIN CHEW 324 MG PO STA (20:38)
[2025-01-21] MEDS: SODIUM CHLORIDE 0.9% 1,000 ML IV STA (20:39)
[2025-01-21] MEDS: ADENOSINE IV SOLN 3 MG/ML 2 ML VIAL IV STA (20:40)
[2025-01-21 20:47] LABS: Hematocrit (blood only) 39.8 % (37.0-47.0); Hemoglobin 13.6 g/dl (12.0-16.0); Immature Granulocytes # (auto) 0.02 K/uL (0.01-0.20); Immature Granulocytes % (auto) 0.2 %; Mean Corpuscular Hemoglobin 33.3 pg (25.0-34.0); Mean Corpuscular Volume 97.3 fL (80.0-100.0); Platelet Count 314 K/uL (130-400); RDW Standard Deviation 44.3 fL (36.4-46.3); Red Blood Count 4.09 M/uL (4.20-5.40); White Blood Count 11.75 K/ul (4.8-10.8)
[2025-01-21] MEDS: SODIUM CHLORIDE 0.9% 1,000 ML IV ONE (21:00)
[2025-01-21 21:03] LABS: Anion Gap 10.0 (3-11); Blood Urea Nitrogen 17.0 mg/dl (6-23); Calcium 9.6 mg/dl (8.6-10.3); Carbon Dioxide 24.0 mmol/L (21-32); Chloride 103.0 mmol/L (98-107); Creatinine Clr Calc Pharmacy 75.4 ml/min; Glucose 95.0 mg/dl (70-99(Fasting)); Lipase 33.0 U/L (11-82); Potassium 3.7 mmol/L (3.5-5.1); Sodium 137.0 mmol/L (136-145)
[2025-01-21 21:13] LABS: INR 1.0 (0.9-1.1); Magnesium 1.9 mg/dl (1.7-2.4); Partial Thromboplastin Time 27 Seconds (21-31); Prothrombin Time 10.7 Seconds (9.0-12.0)
[2025-01-21] MEDS: OPTIRAY 320 125ml IV ONE (21:25)
[2025-01-21 21:28] LABS: Thyroid Stimulating Hormone 0.857 uIu/ml (0.300-4.500)
[2025-01-21] MEDS: SODIUM CHLORIDE 0.9% 500 ML IV ONE (21:59)
[2025-01-21] MEDS: SODIUM CHLORIDE 0.9% 500 ML IV SCH (22:00)
--- NOTE | 2025-01-21 22:00 | CT Scan Report ---
Exam(s): CTA CHEST IV Amt: 115 ml optiray 320 EXAM: CT Angiography Chest With Intravenous Contrast CLINICAL HISTORY: Reason for exam: Chest Pain, eval for PE. TECHNIQUE: Axial computed tomographic angiography images of the chest with intravenous contrast. CTDI is 16 mGy and DLP is 231.33 mGy-cm. Automated exposure control was utilized for the study. A dose lowering technique was utilized adhering to the principles of ALARA. MIP reconstructed images were created and reviewed. COMPARISON: CT 08/02/2013. FINDINGS: Pulmonary arteries: Unremarkable. No pulmonary embolism. Aorta: No acute findings. Normal caliber. No dissection. Lungs: No consolidation. Pleural space: No pleural effusion. No pneumothorax. Heart: Unremarkable. Bones/joints: No acute fracture. Soft tissues: Unremarkable. Lymph nodes: Unremarkable. IMPRESSION: Normal chest CTA. No pulmonary embolism. Electronically signed by: Bruno Chávez MD 01/21/25 21:59 PM
[2025-01-21] MEDS: STAT IV Infusion **Titration per Protocol STA (22:09)
--- NOTE | 2025-01-21 22:12 | XRay Report ---
Exam(s): XR CXR 1 VIEW EXAM: XR Chest, 1 View CLINICAL HISTORY: Reason for exam: Chest pain, nonspecific. TECHNIQUE: Frontal view of the chest. COMPARISON: Prior chest x-ray from June 17, 2024. FINDINGS: Lungs: Mild to moderate peribronchial thickening of the central bronchi. No consolidation. Pleural space: Unremarkable. No pneumothorax. Heart: Unremarkable. No cardiomegaly. Mediastinum: Unremarkable. Normal mediastinal contour. Bones/joints: Unremarkable. No acute fracture. IMPRESSION: Bronchitis, which may be of infectious or inflammatory etiologies. No consolidation or pleural effusion. Electronically signed by: Rola Crow MD 01/21/25 22:11 PM
[2025-01-21 22:50] LABS: Appearance Urine Clear (Clear); Bacteria Urine Automated None Seen (None Seen); Cast Urine Automated 0-2 /lpf (0-2); Epithelial Cell Urine Auto 0-2 /hpf (0-2); Glucose Urine UA Negative (Negative); RBC Urine Automated 0-2 /hpf (0-2); WBC Urine Automated 0-5 /hpf (0-5)
--- NOTE | 2025-01-21 23:17 | History & Physical Report ---
Date of Service January 21, 2025 Assessment & Plan (1) Atrial flutter with rapid ventricular response: Plan: 45-year-old female with past medical history significant for Xavi's thyroiditis, hypothyroidism, subglottic stenosis, Alma's granulomatosis, ADELINA D, polyarthralgia, inflammatory bowel disease presents with palpitations and was found to be in rapid A-flutter. Patient states all day today she was having palpitations and with exertion she was feeling short of breath and on home monitor heart rate was 150s when she decided come to the ER. In the ER heart rate were 150s thought to be initially SVT after adenosine she converted to a flutter. Currently started on Cardizem drip. Denies any headache. Denies dizziness. No nausea. No sweating. Denies any chest pain. Denies any cough. No runny nose or sore throat. No abdominal pain. Normal bowel and bladder movements. Denies any blood in stools or black stools. No rash. Patient is following with GI for IBD, not started on any medications yet. She was diagnosed Alma's granulomatosis in 2019 at [facility] and not any medications. Patient uses prednisone when her Alma's granulomatosis flares up. Patient states she did not needed prednisone more than a year now. Patient also states that recently she was having headaches and palpitations and she felt her thyroid was acting up and she reduced her thyroid dose from 100 mcg to 88 mcg a couple of days before testing for her thyroid function. Her thyroid function was tested on 01/19/2025 and showed TSH was low normal and was advised to continue Synthyroid 88 mcg daily. Patient states she felt better after redu cing thyroid dose. A-flutter with rapid ventricular response New onset Troponin okay In the ER started on Cardizem drip Will place on p.o. Lopressor 25 mg p.o. TID for now and IV Lopressor as needed CT chest no PE IV heparin N.p.o. for now Telemetry Will follow echo Cardio consult in a.m. for further recommendation Hypothyroidism On Synthyroid TSH okay at 0.8 Alma's granulomatosis Currently not on any medications IBD colitis Following with GI DVT prophylaxis IV heparin Disposition Telemetry Full code. History of Present Illness Chief Complaint: Rapid A-flutter Primary Care Provider: Jn Cuevas MD 45-year-old female with past medical history significant for Xavi's thyroiditis, hypothyroidism, subglottic stenosis, Alma's granulomatosis, GERD, polyarthralgia, inflammatory bowel disease presents with palpitations and was found to be in rapid A-flutter. Patient states all day today she was having palpitations and with exertion she was feeling short of breath and on home monitor heart rate was 150s when she decided come to the ER. In the ER heart rate were 150s thought to be initially SVT after adenosine she converted to a flutter. Currently started on Cardizem drip. Denies any headache. Denies dizziness. No nausea. No sweating. Denies any chest pain. Denies any cough. No runny nose or sore throat. No abdominal pain. Normal bowel and bladder movements. Denies any blood in stools or black stools. No rash. Patient is following with GI for IBD, not started on any medications yet. She was diagnosed Alma's granulomatosis in 2019 at [facility] and not any medications. Patient uses prednisone when her Alma's granulomatosis flares up. Patient states she did not needed prednisone more than a year now. Patient also states that recently she was having headaches and palpitations and she felt her thyroid was acting up and she reduced her thyroid dose from 100 mcg to 88 mcg a couple of days before testing for her thyroid function. Her thyroid function was tested on 01/19/2025 and showed TSH was low normal and was advised to continue Synthyroid 88 mcg daily. Patient states she felt better after reducing thyroid dose. Past medical history. As mentioned above Past surgical history. . Colonoscopy with biopsy. EGD. EGD with biopsy. Social history. . No smoking. No alcohol use. No drug use. Family history. Aunt had breast cancer. Aunt had ovarian cancer. Maternal grandmother had cancer. Father had CAD. Hypertension. Mother had mitral valve prolapse. Allergies Allergy/AdvReac Type Severity Reaction Status Date / Time Penicillins Allergy Severe FULL BODY Verified 01/21/25 22:17 RASH Sulfa (Sulfonamide Allergy Severe ANAPHYLAXIS Verified 01/21/25 22:17 Antibiotics) amoxicillin Allergy Intermediate rash Verified 01/21/25 22:17 Macrolide Antibiotics Allergy Intermediate rash Verified 01/21/25 22:17 nitrofurantoin Allergy Unknown CAN'T Verified 01/21/25 22:17 REMEMBER hydromorphone AdvReac Intermediate Pt states Verified 01/21/25 22:17 muscles in neck&all over become tight and painful mesalamine AdvReac Intermediate multiple Verified 01/21/25 22:17 side effects Home Medications Medication Instructions Recorded Confirmed Type levothyroxine 88 mcg tablet 88 mcg PO DAILY 01/21/25 01/21/25 History Past Med/Surg History Problem List (Updated 01/21/25 @ 23:57 by Dean Gr MD) Atrial flutter with rapid ventricular response (Acute) Cough (Acute) Cough (Acute) Seasonal allergies (Acute) Syncope (Acute) Medical History Syncope Non-cardiac chest pain Hypothyroidism Family History Other No significant family history Social History Smoking Status: Never smoker Second Hand Exposure: No; Do You Dip or Chew Tobacco: No; Hx Alcohol Use: No Hx Substance Use: No Preferred Language: Afghan Communication Ability: Effective Film Waxer Required: No Beliefs That Will Affect Care: None marital status: Current Living Situation: Family Other Information That Helps Us Care for You: No Feels Safe at Home: Yes Safety Concerns: Feels Safe At This Time Assistive Devices: None Review of Systems Review of Systems: All systems reviewed & are unremarkable except as noted in HPI & below Physical Exam Physical Exam: General- Not in distress Head- atraumatic Eyes- PERRL. ENT- oropharynx clear Neck- supple, no JVD. Lungs- clear to auscultation no wheezing or crackles Heart- irregular rhythm; tachycardia no murmur, no gallop. Abdomen- normal bowel sounds, soft, nontender, no distension Extremities- no pretibial edema, no erythema seen Neuro- alert, oriented PERRL, no facial palsy; no dysarthria; moves extremities Results & Data Results & Data Vital Signs (Past 12 Hours) Vital Signs Temp Pulse Pulse Resp BP BP Pulse Ox 01/21/25 22:52 90 01/21/25 22:46 107 H 18 103/66 100 01/21/25 22:44 153 H 01/21/25 22:40 82/58 L 01/21/25 22:36 148 H 17 106/63 96 01/21/25 22:30 110 H 90/56 L 96 01/21/25 22:21 153 H 14 92/71 L 98 01/21/25 22:10 99/69 L 01/21/25 22:00 124 H 101/70 01/21/25 22:00 86 10 L 101/70 98 01/21/25 21:50 98 H 15 107/64 98 01/21/25 21:48 128 H 14 101/67 98 01/21/25 21:44 82/70 L 01/21/25 21:42 97 H 10 L 97 01/21/25 21:40 91/70 L 01/21/25 21:39 139 H 14 99 01/21/25 21:37 103/63 01/21/25 21:10 120/91 01/21/25 21:09 100 H 15 01/21/25 21:06 93 H 9 L 01/21/25 21:06 102/68 01/21/25 21:03 92/58 L 01/21/25 21:03 159 H 8 L 01/21/25 21:00 101/79 01/21/25 20:48 99 H 01/21/25 20:42 147 H 01/21/25 20:33 01/21/25 20:30 119/84 01/21/25 20:30 155 H 15 01/21/25 20:29 155 H 01/21/25 20:19 36.6 C 159 H 18 111/80 100 O2 Del Method 01/21/25 22:52 01/21/25 22:46 01/21/25 22:44 01/21/25 22:40 01/21/25 22:36 01/21/25 22:30 01/21/25 22:21 01/21/25 22:10 01/21/25 22:00 01/21/25 22:00 01/21/25 21:50 01/21/25 21:48 Room Air 01/21/25 21:44 01/21/25 21:42 01/21/25 21:40 01/21/25 21:39 01/21/25 21:37 01/21/25 21:10 01/21/25 21:09 01/21/25 21:06 01/21/25 21:06 01/21/25 21:03 01/21/25 21:03 01/21/25 21:00 01/21/25 20:48 01/21/25 20:42 01/21/25 20:33 Room Air 01/21/25 20:30 01/21/25 20:30 01/21/25 20:29 01/21/25 20:19 Room Air Diagnostic Findings Laboratory Results WBC 11.75 K/ul (4.8-10.8) H 01/21/25 20:32 RBC 4.09 M/uL (4.20-5.40) L 01/21/25 20:32 Hgb 13.6 g/dl (12.0-16.0) 01/21/25 20:32 POC Hgb 13.9 g/dl (12.0-16.0) 01/21/25 20:38 Hct 39.8 % (37.0-47.0) 01/21/25 20:32 POC Hct 41 % (37-47) 01/21/25 20:38 MCV 97.3 fL (80.0-100.0) 01/21/25 20:32 MCH 33.3 pg (25.0-34.0) 01/21/25 20: MCHC 34.2 g/dL (32.0-36.0) 01/21/25 20:32 RDW Std Deviation 44.3 fL (36.4-46.3) 01/21/25 20:32 RDW Coeff of Mishel 12.4 % (11.5-14.5) 01/21/25 20:32 Plt Count 314 K/uL (130-400) 01/21/25 20:32 MPV 11.3 fL (9.4-12.4) 01/21/25 20:32 Immature Gran % (Auto) 0.2 % 01/21/25 20:32 Neut % (Auto) 65.5 % 01/21/25 20:32 Lymph % (Auto) 23.5 % 01/21/25 20:32 [place] % (Auto) 8.9 % 01/21/25 20:32 Eos % (Auto) 1.4 % 01/21/25 20:32 Baso % (Auto) 0.5 % 01/21/25 20:32 Neut # (Auto) 7.70 K/uL (1.40-6.50) H 01/21/25 20:32 Lymph # (Auto) 2.76 K/uL (1.20-3.40) 01/21/25 20:32 [place] # (Auto) 1.05 K/uL (0.11-0.59) H 01/21/25 20:32 Eos # (Auto) 0.16 K/uL (0.00-0.50) 01/21/25 20:32 Baso # (Auto) 0.06 K/uL (0.00-0.20) 01/21/25 20:32 Immature Gran # (Auto) 0.02 K/uL (0.01-0.20) 01/21/25 20:32 PT 10.7 Seconds (9.0-12.0) 01/21/25 20:32 INR 1.0 (0.9-1.1) 01/21/25 20:32 APTT 27 Seconds (21-31) 01/21/25 20:32 PTT Ratio 1.0 01/21/25 20:32 POC Sodium 139 mmol/L (135-144) 01/21/25 20:38 Sodium 137 mmol/L (136-145) 01/21/25 20:32 POC Potassium 3.5 mmol/L (3.3-5.0) 01/21/25 20:38 Potassium 3.7 mmol/L (3.5-5.1) 01/21/25 20:32 POC Chloride 106 mmol/L (101-112) 01/21/25 20:38 Chloride 103 mmol/L (98-107) 01/21/25 20:32 Carbon Dioxide 24 mmol/L (21-32) 01/21/25 20:32 POC Total CO2 23 mmol/L (24-31) L 01/21/25 20:38 Anion Gap 10 (3-11) 01/21/25 20:32 POC Anion Gap 15.0 mmol/L (16-25) L 01/21/25 20:38 POC BUN 17 mg/dl (7-18) 01/21/25 20:38 BUN 17 mg/dl (6-23) 01/21/25 20:32 Creatinine 0.79 mg/dl (0.6-1.2) 01/21/25 20:32 POC Creatinine 0.9 mg/dl (0.6-1.3) 01/21/25 20:38 Est Cr Clr Drug Dosing 75.4 ml/min 01/21/25 20:32 eGFR 95.12 01/21/25 20:32 BUN/Creatinine Ratio 21.5 (10-20) H 01/21/25 20:32 Glucose 95 mg/dl (70-99(Fasting)) 01/21/25 20:32 POC Glucose (other) 100 mg/dl (70-99) H 01/21/25 20:38 Calcium 9.6 mg/dl (8.6-10.3) 01/21/25 20: POC Ioniz Calcium Chen 1.12 mmol/l (1.12-1.32) 01/21/25 20:38 Magnesium 1.9 mg/dl (1.7-2.4) 01/21/25 20:32 Troponin I High Sens 4.2 pg/ml (0-14) 01/21/25 20:32 Lipase 33 U/L (11-82) 01/21/25 20:32 TSH 0.857 uIu/ml (0.300-4.500) 01/21/25 20:32 Urine Color Yellow 01/21/25 21:15 Urine Appearance Clear (Clear) 01/21/25 21:15 Urine pH 6.5 (4.5-7.5) 01/21/25 21:15 Ur Specific [place] 1.005 (1.000-1.030) 01/21/25 21:15 Urine Protein Negative (Negative) 01/21/25 21:15 Urine Glucose (UA) Negative (Negative) 01/21/25 21:15 Urine Ketones Trace (Negative) H 01/21/25 21: Urine Blood Negative (Negative) 01/21/25 21: Urine Nitrite Negative (Negative) 01/21/25 21: Urine Bilirubin Negative (Negative) 01/21/25 21: Urine Urobilinogen Negative (Negative) 01/21/25 21:15 Ur Leukocyte Esterase 2+ (Negative) H 01/21/25 21:15 Urine WBC (Auto) 0-5 /hpf (0-5) 01/21/25 21:15 Urine RBC (Auto) 0-2 /hpf (0-2) 01/21/25 21:15 U Hyaline Cast (Auto) 0-2 /lpf (0-2) 01/21/25 21:15 U Epithel Cells (Auto) 0-2 /hpf (0-2) 01/21/25 21:15 Urine Bacteria (Auto) None Seen (None Seen) 01/21/25 21:15 Urine Comment 01/21/25 21:15 Impressions Chest X-Ray 01/21/25 20:33 Exam(s): XR CXR 1 VIEW EXAM: XR Chest, 1 View CLINICAL HISTORY: Reason for exam: Chest pain, nonspecific. TECHNIQUE: Frontal view of the chest. COMPARISON: Prior chest x-ray from June 17, 2024. FINDINGS: Lungs: Mild to moderate peribronchial thickening of the central bronchi. No consolidation. Pleural space: Unremarkable. No pneumothorax. Heart: Unremarkable. No cardiomegaly. Mediastinum: Unremarkable. Normal mediastinal contour. Bones/joints: Unremarkable. No acute fracture. IMPRESSION: Bronchitis, which may be of infectious or inflammatory etiologies. No consolidation or pleural effusion. Electronically signed by: Rola Crow MD 01/21/25 22:11 PM Chest CTA 01/21/25 20:34 Exam(s): CTA CHEST IV Amt: 115 ml optiray 320 EXAM: CT Angiography Chest With Intravenous Contrast CLINICAL HISTORY: Reason for exam: Chest Pain, eval for PE. TECHNIQUE: Axial computed tomographic angiography images of the chest with intravenous contrast. CTDI is 16 mGy and DLP is 231.33 mGy-cm. Automated exposure control was utilized for the study. A dose lowering technique was utilized adhering to the principles of ALARA. MIP reconstructed images were created and reviewed. COMPARISON: CT 08/02/2013. FINDINGS: Pulmonary arteries: Unremarkable. No pulmonary embolism. Aorta: No acute findings. Normal caliber. No dissection. Lungs: No consolidation. Pleural space: No pleural effusion. No pneumothorax. Heart: Unremarkable. Bones/joints: No acute fracture. Soft tissues: Unremarkable. Lymph nodes: Unremarkable. IMPRESSION: Normal chest CTA. No pulmonary embolism. Electronically signed by: Bruno Chávez MD 01/21/25 21:59 PM ECG Additional Comments: ECG. Initial ECG. Sinus tachycardia rate of 155. Nonspecific intraventricular conduction block. QTc 488 Repeat ECG. A flutter with 2:1 AV conduction at rate of 145. Nonspecific intraventricular conduction block. QTc 469 Code Status & VTE Plan VTE Prophylaxis Plan VTE Prophylaxis will be ordered: Yes
--- NOTE | 2025-01-21 23:38 | Emergency Department Note ---
History of Present Illness General Chief Complaint: Tachycardia Stated Complaint: HIGH HEART RATE, 150-160 Time Seen by Provider: 01/21/25 20:31 History of Present Illness Provider Complaint: + rapid heart beat and + palpitations Onset (ago): week(s) (1) Duration: + Intermittent and + Worsening Severity: severe Context: + occurred during rest and + change in medication (Patient reports her levothyroxine recently recently dropped to 88 mcg from 100 mcg.) Arrhythmia history: no atrial fibrillation, no on anti-coagulants or no pacemaker Associated symptoms: no chest pain, no shortness of breath, no syncope, no near- syncope, no nausea, no vomiting, no cough or no muscle cramps Home Medications Medication Instructions Recorded Confirmed Type levothyroxine 88 mcg tablet 88 mcg PO DAILY 01/21/25 01/21/25 History Allergies Allergy/AdvReac Type Severity Reaction Status Date / Time Penicillins Allergy Severe FULL BODY Verified 01/21/25 22:17 RASH Sulfa (Sulfonamide Allergy Severe ANAPHYLAXIS Verified 01/21/25 22:17 Antibiotics) amoxicillin Allergy Intermediate rash Verified 01/21/25 22:17 Macrolide Antibiotics Allergy Intermediate rash Verified 01/21/25 22:17 nitrofurantoin Allergy Unknown CAN'T Verified 01/21/25 22:17 REMEMBER hydromorphone AdvReac Intermediate Pt states Verified 01/21/25 22:17 muscles in neck&all over become tight and painful mesalamine AdvReac Intermediate multiple Verified 01/21/25 22:17 side effects Past Med/Surg History Problem List (Updated 01/21/25 @ 23:57 by Dean Gr MD) Atrial flutter with rapid ventricular response (Acute) Cough (Acute) Cough (Acute) Seasonal allergies (Acute) Syncope (Acute) Medical History Syncope Non-cardiac chest pain Hypothyroidism Family History Other No significant family history Social History Smoking Status: Never smoker Preferred Language: Moldovan marital status: Current Living Situation: Significant Other Feels Safe at Home: Yes Physical Exam 2 Vital Signs: Vital Signs - 24 hr 01/21/25 20:19 01/21/25 20:29 01/21/25 20:30 Temperature 36.6 C Temperature Source Temporal Artery Sc an Pulse Rate 159 H 155 H 155 H Pulse Rate [Apical ] Pulse Rate from Sp O2 Sensor Pulse Rhythm Regular Pulse Strength Normal Respiratory Rate 18 15 Respiratory Effort / Characteristics Non-Labored Sponta neous Respiratory Depth Normal Respiratory Patter n Regular Blood Pressure 111/80 Blood Pressure [Le ft Arm] Blood Pressure Julee n 90 Blood Pressure Julee n [Left Arm] Blood Pressure Pos ition Sitting Pulse Oximetry 100 Oxygen Delivery Me thod Room Air Sepsis Recent Feve r Within 48 Hours No Sepsis New/Unexpla ined Change in Men brad Status N/A Sepsis Action Take n by Nursing No Action Required 01/21/25 20:30 01/21/25 20:33 01/21/25 20:42 Temperature Temperature Source Pulse Rate 147 H Pulse Rate [Apical ] Pulse Rate from Sp O2 Sensor Pulse Rhythm Pulse Strength Respiratory Rate Respiratory Effort / Characteristics Respiratory Depth Respiratory Patter n Blood Pressure 119/84 Blood Pressure [Le ft Arm] Blood Pressure Ujlee n 105 Blood Pressure Julee n [Left Arm] Blood Pressure Pos ition Pulse Oximetry Oxygen Delivery Me thod Room Air Sepsis Recent Feve r Within 48 Hours Sepsis New/Unexpla ined Change in Men brad Status Sepsis Action Take n by Nursing 01/21/25 20:48 01/21/25 21:00 01/21/25 21:03 Temperature Temperature Source Pulse Rate 99 H 159 H Pulse Rate [Apical ] Pulse Rate from Sp O2 Sensor Pulse Rhythm Pulse Strength Respiratory Rate 8 L Respiratory Effort / Characteristics Respiratory Depth Respiratory Patter n Blood Pressure 101/79 Blood Pressure [Le ft Arm] Blood Pressure Julee n 83 Blood Pressure Julee n [Left Arm] Blood Pressure Pos ition Pulse Oximetry Oxygen Delivery Me thod Sepsis Recent Feve r Within 48 Hours Sepsis New/Unexpla ined Change in Men brad Status Sepsis Action Take n by Nursing 01/21/25 21:03 01/21/25 21:06 01/21/25 21:06 Temperature Temperature Source Pulse Rate 93 H Pulse Rate [Apical ] Pulse Rate from Sp O2 Sensor Pulse Rhythm Pulse Strength Respiratory Rate 9 L Respiratory Effort / Characteristics Respiratory Depth Respiratory Patter n Blood Pressure 92/58 L 102/68 Blood Pressure [Le ft Arm] Blood Pressure Julee n 62 82 Blood Pressure Julee n [Left Arm] Blood Pressure Pos ition Pulse Oximetry Oxygen Delivery Me thod Sepsis Recent Feve r Within 48 Hours Sepsis New/Unexpla ined Change in Men brad Status Sepsis Action Take n by Nursing 01/21/25 21:09 01/21/25 21:10 01/21/25 21:37 Temperature Temperature Source Pulse Rate 100 H Pulse Rate [Apical ] Pulse Rate from Sp O2 Sensor Pulse Rhythm Pulse Strength Respiratory Rate 15 Respiratory Effort / Characteristics Respiratory Depth Respiratory Patter n Blood Pressure 120/91 103/63 Blood Pressure [Le ft Arm] Blood Pressure Julee n 99 78 Blood Pressure Julee n [Left Arm] Blood Pressure Pos ition Pulse Oximetry Oxygen Delivery Me thod Sepsis Recent Feve r Within 48 Hours Sepsis New/Unexpla ined Change in Men brad Status Sepsis Action Take n by Nursing 01/21/25 21:39 01/21/25 21:40 01/21/25 21:42 Temperature Temperature Source Pulse Rate 139 H 97 H Pulse Rate [Apical ] Pulse Rate from Sp O2 Sensor 128 H 97 H Pulse Rhythm Pulse Strength Respiratory Rate 14 10 L Respiratory Effort / Characteristics Respiratory Depth Respiratory Patter n Blood Pressure 91/70 L Blood Pressure [Le ft Arm] Blood Pressure Julee n 73 Blood Pressure Julee n [Left Arm] Blood Pressure Pos ition Pulse Oximetry 99 97 Oxygen Delivery Me thod Sepsis Recent Feve r Within 48 Hours Sepsis New/Unexpla ined Change in Men rbad Status Sepsis Action Take n by Nursing 01/21/25 21:44 01/21/25 21:48 01/21/25 21:50 Temperature Temperature Source Pulse Rate 98 H Pulse Rate [Apical ] 128 H Pulse Rate from Sp O2 Sensor Pulse Rhythm Pulse Strength Respiratory Rate 14 15 Respiratory Effort / Characteristics Respiratory Depth Respiratory Patter n Blood Pressure 82/70 L 107/64 Blood Pressure [Le ft Arm] 101/67 Blood Pressure Julee n 72 80 Blood Pressure Julee n [Left Arm] 78 Blood Pressure Pos ition Pulse Oximetry 98 98 Oxygen Delivery Me thod Room Air Sepsis Recent Feve r Within 48 Hours Sepsis New/Unexpla ined Change in Men brad Status Sepsis Action Take n by Nursing 01/21/25 22:00 01/21/25 22:00 01/21/25 22:10 Temperature Temperature Source Pulse Rate 86 124 H Pulse Rate [Apical ] Pulse Rate from Sp O2 Sensor 94 H Pulse Rhythm Pulse Strength Respiratory Rate 10 L Respiratory Effort / Characteristics Respiratory Depth Respiratory Patter n Blood Pressure 101/70 101/70 99/69 L Blood Pressure [Le ft Arm] Blood Pressure Julee n 80 74 83 Blood Pressure Julee n [Left Arm] Blood Pressure Pos ition Pulse Oximetry 98 Oxygen Delivery Me thod Sepsis Recent Feve r Within 48 Hours Sepsis New/Unexpla ined Change in Men brad Status Sepsis Action Take n by Nursing 01/21/25 22:21 01/21/25 22:30 01/21/25 22:36 Temperature Temperature Source Pulse Rate 153 H 110 H 148 H Pulse Rate [Apical ] Pulse Rate from Sp O2 Sensor Pulse Rhythm Pulse Strength Respiratory Rate 14 17 Respiratory Effort / Characteristics Respiratory Depth Respiratory Patter n Blood Pressure 92/71 L 90/56 L 106/63 Blood Pressure [Le ft Arm] Blood Pressure Julee n 83 69 77 Blood Pressure Julee n [Left Arm] Blood Pressure Pos ition Pulse Oximetry 98 96 96 Oxygen Delivery Me thod Sepsis Recent Feve r Within 48 Hours Sepsis New/Unexpla ined Change in Men brad Status Sepsis Action Take n by Nursing 01/21/25 22:40 01/21/25 22:44 01/21/25 22:46 Temperature Temperature Source Pulse Rate 153 H Pulse Rate [Apical ] 107 H Pulse Rate from Sp O2 Sensor Pulse Rhythm Pulse Strength Respiratory Rate 18 Respiratory Effort / Characteristics Respiratory Depth Respiratory Patter n Blood Pressure 82/58 L Blood Pressure [Le ft Arm] 103/66 Blood Pressure Julee n 64 Blood Pressure Julee n [Left Arm] 78 Blood Pressure Pos ition Pulse Oximetry 100 Oxygen Delivery Me thod Sepsis Recent Feve r Within 48 Hours Sepsis New/Unexpla ined Change in Men brad Status Sepsis Action Take n by Nursing 01/21/25 22:52 01/21/25 23:36 Temperature Temperature Source Pulse Rate 90 97 H Pulse Rate [Apical ] Pulse Rate from Sp O2 Sensor Pulse Rhythm Pulse Strength Respiratory Rate 18 Respiratory Effort / Characteristics Respiratory Depth Respiratory Patter n Blood Pressure 105/72 Blood Pressure [Le ft Arm] Blood Pressure Julee n Blood Pressure Julee n [Left Arm] Blood Pressure Pos ition Pulse Oximetry 100 Oxygen Delivery Me thod Room Air Sepsis Recent Feve r Within 48 Hours Sepsis New/Unexpla ined Change in Men brad Status Sepsis Action Take n by Nursing Physical Exam: Physical Exam HENT: Exam performed. - Head: Normocephalic and atraumatic. EYES: Conjunctivae and EOM are normal. Right eye exhibits no discharge. Left eye exhibits no discharge. No scleral icterus. NECK: Normal range of motion. Neck supple. No JVD present. CV: Tachycardic rate, regular rhythm, normal heart sounds and intact distal pulses. There is no peripheral edema. Palpable radial pulses bue. PULM/CHEST: Effort normal and breath sounds normal. No respiratory distress. No stridor. no wheezes. no rales. ABD: The abdomen is soft. There is no tenderness. NEURO: Motor and sensation grossly intact. SKIN: Skin is warm and dry. He is not diaphoretic. PSYCH: Patient appears very anxious Course Course 2030: The patient was evaluated in room C1. A complete history and physical exam was performed Cardiac monitoring: An order was placed for continuous cardiac monitoring. The monitor shows a rate of 150-160 with sinus tachycardia versus SVT rhythm interpreted by me Large-bore IV access was obtained. Patient is in SVT versus sinus tachycardia. Patient is very anxious appearing. Ativan and IV fluids ordered for the patient. Adenosine 6 mg IV push given to the patient. Patient did slow down into a sinus tachycardia. Patient refusing aspirin. 2049: Patient appears to be alternating between sinus rhythm and atrial flutter on the monitoring engineer. Will continue to monitor. 2102: The patient is in atrial flutter. Cardizem 10 mg IV push ordered for the patient which did improve the patient's ventricular rate. Patient will be started on Cardizem drip. Will obtain CTA of the chest given the patient alternating between atrial flutter and sinus tachycardia. 2144: After CTA patient's blood pressure is mildly low. Patient be given 500 cc normal saline bolus and given 1.5 an hour normal saline after that. Will hold Cardizem drip for now. 2209: Blood pressure stabilized. Patient's ventricular rate 140-160. Will start Cardizem drip. CTA negative for PE. Labs are unremarkable including negative high-sensitivity troponin and TSH within normal limits. Electrolytes within normal limits. [facility] TORI?DS?-VASc Score for Atrial Fibrillation Stroke Risk from [email or web address] on 01/21/2025 All calculations should be rechecked by clinician prior to use RESULT SUMMARY: 1 points Stroke risk was 0.6% per year in >90,000 patients (the [place] Atrial Fibrillation Cohort Study) and 0.9% risk of stroke/TIA/systemic embolism. INPUTS: Age > 0 = <65 Sex > 1 = Female CHF history > 0 = No Hypertension history > 0 = No Stroke/TIA/thromboembolism history > 0 = No Vascular disease history (prior OR, peripheral artery disease, or aortic plaque) > 0 = No Diabetes history > 0 = No Administered Medications Diltiazem HCl 125 mg/ Dextrose 125 mls @ 5 mls/hr IV .Q24H EFREN; Protocol Stop: 02/20/25 20:59 Last Titration: 01/21/25 23:13 Dose: 10 mg/hr, 10 mls/hr Documented By: JUSTIN Co-signed By: XIOMY Admin: 01/21/25 22:07 Dose: 5 mg/hr, 5 mls/hr Documented By: AYAZ Co-signed By: EVERETTE Sodium Chloride (Nss) 500 mls @ 125 mls/hr IV .Q4H EFREN Stop: 01/22/25 01:59 Last Admin: 01/21/25 22:00 Dose: 125 mls/hr Documented By: AYAZ Discontinued Medications Adenosine (Adenosine Iv Soln 3 Mg/Ml 2 Ml Vial) 6 mg IV NOW STA Stop: 01/21/25 20:35 Last Admin: 01/21/25 20:40 Dose: 6 mg Documented By: AYAZ Aspirin (Aspirin Chew 324 Mg) 324 mg PO NOW STA Stop: 01/21/25 20:34 Last Admin: 01/21/25 20:40 Dose: Not Given Documented By: AYAZ Diltiazem HCl (Diltiazem Hcl 5 Mg/Ml 5 Ml Vial) 10 mg IV NOW STA Stop: 01/21/25 20:48 Last Admin: 01/21/25 20:58 Dose: 10 mg Documented By: AYAZ Co-signed By: XIOMY Diltiazem HCl (Diltiazem Hcl 5 Mg/Ml 5 Ml Vial) Confirm Administered Dose 25 mg IV .STK-MED ONE Stop: 01/21/25 20:48 Last Admin: 01/21/25 21:38 Dose: Not Given Documented By: AYAZ Sodium Chloride (Nss) 1,000 mls @ 999 mls/hr IV .Q1H1M STA Stop: 01/21/25 21:33 Last Infusion: 01/21/25 21:40 Dose: Infused Documented By: Admin: 01/21/25 20:39 Dose: 999 mls/hr Documented By: AYAZ Sodium Chloride (Nss) 1,000 mls @ 999 mls/hr IV .Q1H1M ONE Stop: 01/21/25 22:04 Last Infusion: 01/21/25 22:01 Dose: Infused Documented By: Admin: 01/21/25 21:00 Dose: 999 mls/hr Documented By: AYAZ Sodium Chloride (Nss) 500 mls @ 999 mls/hr IV .Q31M ONE Stop: 01/21/25 22:19 Last Infusion: 01/21/25 22:30 Dose: Infused Documented By: Admin: 01/21/25 21:59 Dose: 999 mls/hr Documented By: AYAZ Ioversol (Optiray 320 125ml) 115 ml IV ONCE ONE Stop: 01/21/25 21:26 Last Admin: 01/21/25 21:25 Dose: 115 ml Documented By: HARPER Lorazepam (Lorazepam 1 Mg/1 Ml Syr Ed Inj Use) 1 mg IV ONE STA Stop: 01/21/25 20:35 Last Admin: 01/21/25 20:38 Dose: 1 mg Documented By: AYAZ Miscellaneous (Stat Iv Infusion Titration Per Protocol) 1 each N/A NOW STA Stop: 01/21/25 20:59 Last Admin: 01/21/25 22:09 Dose: 1 each Documented By: AYAZ Medical Decision Making Laboratory Data Attestation: I reviewed the patient's lab results. 01/21/25 20:32 01/21/25 20:32 Lab Results 01/21/25 01/21/25 01/21/25 Range/Units 20:32 20:38 21:15 WBC 11.75 H (4.8-10.8) K/ul RBC 4.09 L (4.20-5.40) M/uL Hgb 13.6 (12.0-16.0) g/dl POC Hgb 13.9 (12.0-16.0) g/dl Hct 39.8 (37.0-47.0) % POC Hct 41 (37-47) % MCV 97.3 (80.0-100.0) fL MCH 33.3 (25.0-34.0) pg MCHC 34.2 (32.0-36.0) g/dL RDW Std Deviation 44.3 (36.4-46.3) fL RDW Coeff of Mishel 12.4 (11.5-14.5) % Plt Count 314 (130-400) K/uL MPV 11.3 (9.4-12.4) fL Immature Gran % (Auto) 0.2 % Neut % (Auto) 65.5 % Lymph % (Auto) 23.5 % Bennett % (Auto) 8.9 % Eos % (Auto) 1.4 % Baso % (Auto) 0.5 % Neut # (Auto) 7.70 H (1.40-6.50) K/uL Lymph # (Auto) 2.76 (1.20-3.40) K/uL Bennett # (Auto) 1.05 H (0.11-0.59) K/uL Eos # (Auto) 0.16 (0.00-0.50) K/uL Baso # (Auto) 0.06 (0.00-0.20) K/uL Immature Gran # (Auto) 0.02 (0.01-0.20) K/uL PT 10.7 (9.0-12.0) Seconds INR 1.0 (0.9-1.1) APTT 27 (21-31) Seconds PTT Ratio 1.0 POC Sodium 139 (135-144) mmol/L Sodium 137 (136-145) mmol/L POC Potassium 3.5 (3.3-5.0) mmol/L Potassium 3.7 (3.5-5.1) mmol/L POC Chloride 106 (101-112) mmol/L Chloride 103 (98-107) mmol/L Carbon Dioxide 24 (21-32) mmol/L POC Total CO2 23 L (24-31) mmol/L Anion Gap 10 (3-11) POC Anion Gap 15.0 L (16-25) mmol/L POC BUN 17 (7-18) mg/dl BUN 17 (6-23) mg/dl Creatinine 0.79 (0.6-1.2) mg/dl POC Creatinine 0.9 (0.6-1.3) mg/dl Est Cr Clr Drug Dosing 75.4 ml/min eGFR 95.12 BUN/Creatinine Ratio 21.5 H (10-20) Glucose 95 (70-99(Fasting)) mg/dl POC Glucose (other) 100 H (70-99) mg/dl Calcium 9.6 (8.6-10.3) mg/dl POC Ioniz Calcium Chen 1.12 (1.12-1.32) mmol/l Magnesium 1.9 (1.7-2.4) mg/dl Troponin I High Sens 4.2 (0-14) pg/ml Lipase 33 (11-82) U/L TSH 0.857 (0.300-4.500) uIu/ml Urine Color Yellow Urine Appearance Clear (Clear) Urine pH 6.5 (4.5-7.5) Ur Specific Culver 1.005 (1.000-1.030) Urine Protein Negative (Negative) Urine Glucose (UA) Negative (Negative) Urine Ketones Trace H (Negative) Urine Blood Negative (Negative) Urine Nitrite Negative (Negative) Urine Bilirubin Negative (Negative) Urine Urobilinogen Negative (Negative) Ur Leukocyte Esterase 2+ H (Negative) Urine WBC (Auto) 0-5 (0-5) /hpf Urine RBC (Auto) 0-2 (0-2) /hpf U Hyaline Cast (Auto) 0-2 (0-2) /lpf U Epithel Cells (Auto) 0-2 (0-2) /hpf Urine Bacteria (Auto) None Seen (None Seen) Urine Comment Urine Opiates Screen Neg (Neg) Ur Methadone, Qual Neg (Neg) Urine Fentanyl Screen Neg (Neg) Urine Barbiturates Neg (Neg) Ur Phencyclidine (PCP) Neg (Neg) U Amphetamin/Meth Scrn Neg (Neg) MDMA (Ecstasy) Screen Neg (Neg) U Benzodiazepines Scrn Neg (Neg) Ur Cocaine Metabolite Neg (Neg) U Marijuana (THC) Screen Neg (Neg) Imaging Data Attestation: I personally reviewed and interpreted this imaging study as follows: My Impression: Chest x-ray negative. Airway clear. No pneumothorax. No consolidation. No cardiomegaly or cephalization.. No free air under the diaphragm. No fractures of the skeletal structures. Radiologist's Impression: Chest X-Ray 01/21/25 20:33 Exam(s): XR CXR 1 VIEW EXAM: XR Chest, 1 View CLINICAL HISTORY: Reason for exam: Chest pain, nonspecific. TECHNIQUE: Frontal view of the chest. COMPARISON: Prior chest x-ray from June 17, 2024. FINDINGS: Lungs: Mild to moderate peribronchial thickening of the central bronchi. No consolidation. Pleural space: Unremarkable. No pneumothorax. Heart: Unremarkable. No cardiomegaly. Mediastinum: Unremarkable. Normal mediastinal contour. Bones/joints: Unremarkable. No acute fracture. IMPRESSION: Bronchitis, which may be of infectious or inflammatory etiologies. No consolidation or pleural effusion. Electronically signed by: Rola Crow MD 01/21/25 22:11 PM Chest CTA 01/21/25 20:34 Exam(s): CTA CHEST IV Amt: 115 ml optiray 320 EXAM: CT Angiography Chest With Intravenous Contrast CLINICAL HISTORY: Reason for exam: Chest Pain, eval for PE. TECHNIQUE: Axial computed tomographic angiography images of the chest with intravenous contrast. CTDI is 16 mGy and DLP is 231.33 mGy-cm. Automated exposure control was utilized for the study. A dose lowering technique was utilized adhering to the principles of ALARA. MIP reconstructed images were created and reviewed. COMPARISON: CT 08/02/2013. FINDINGS: Pulmonary arteries: Unremarkable. No pulmonary embolism. Aorta: No acute findings. Normal caliber. No dissection. Lungs: No consolidation. Pleural space: No pleural effusion. No pneumothorax. Heart: Unremarkable. Bones/joints: No acute fracture. Soft tissues: Unremarkable. Lymph nodes: Unremarkable. IMPRESSION: Normal chest CTA. No pulmonary embolism. Electronically signed by: Bruno Chávez MD 01/21/25 21:59 PM ECG Data Attestation: I personally reviewed and interpreted this ECG as follows: Additional Comments: EKG #1 at 2019: Sinus tachycardia versus SVT with a rate of 155. QRS [address] elevation EKG #2 at 2038: Sinus tachycardia versus SVT with a rate of 148. QRS 162. QTc 474. No ST elevation or ST depression. EKG #3 at 2040 status post adenosine 6 mg IV push: Sinus tachycardia with a rate of 118. LA 154 QRS [address] elevation or ST depression. EKG #4 at 2045: Atrial flutter with a rate of 145. QRS [address] elevation or ST depression EKG #5 at 2048: Sinus rhythm with a rate of 98. LA 140 QRS [address] elevation or ST depression EKG #6 at 2057: Atrial flutter with a rate of 151. QRS [address] elevation or ST depression. EKG #7 at 2102 status post Cardizem 10 mg IV push: Atrial fibrillation with a rate of 110. QRS [address] elevation or ST depression. MDM Narrative 2030: The patient was evaluated in room C1. A complete history and physical exam was performed Cardiac monitoring: An order was placed for continuous cardiac monitoring. The monitor shows a rate of 150-160 with sinus tachycardia versus SVT rhythm interpreted by me Large-bore IV access was obtained. Patient is in SVT versus sinus tachycardia. Patient is very anxious appearing. Ativan and IV fluids ordered for the patient. Adenosine 6 mg IV push given to the patient. Patient did slow down into a sinus tachycardia. Patient refusing aspirin. 2049: Patient appears to be alternating between sinus rhythm and atrial flutter on the monitoring engineer. Will continue to monitor. 2102: The patient is in atrial flutter. Cardizem 10 mg IV push ordered for the patient which did improve the patient's ventricular rate. Patient will be started on Cardizem drip. Will obtain CTA of the chest given the patient alternating between atrial flutter and sinus tachycardia. 2144: After CTA patient's blood pressure is mildly low. Patient be given 500 cc normal saline bolus and given 1.5 an hour normal saline after that. Will hold Cardizem drip for now. 2209: Blood pressure stabilized. Patient's ventricular rate 140-160. Will start Cardizem drip. CTA negative for PE. Labs are unremarkable including negative high-sensitivity troponin and TSH within normal limits. Electrolytes within normal limits. [facility]. TORI?DS?-VASc Score for Atrial Fibrillation Stroke Risk from [email or web address] on 01/21/2025 All calculations should be rechecked by clinician prior to use RESULT SUMMARY: 1 points Stroke risk was 0.6% per year in >90,000 patients (the [place] Atrial Fibrillation Cohort Study) and 0.9% risk of stroke/TIA/systemic embolism. INPUTS: Age > 0 = <65 Sex > 1 = Female CHF history > 0 = No Hypertension history > 0 = No Stroke/TIA/thromboembolism history > 0 = No Vascular disease history (prior OR, peripheral artery disease, or aortic plaque) > 0 = No Diabetes history > 0 = No Impression & Plan Atrial flutter with rapid ventricular response Critical Care Time Critical Care Time: Yes Total Critical Care Time: 80 I have personally spent greater than 80 minutes of critical care time in the direct management of this patient. This includes bedside care, interpretation of diagnostic studies, and testing, discussion with consultants, patient, and family members, and other required patient management activities. This 80 minutes is in excess of all separately billable procedures. Prolonged Care Time Total Prolonged Care Time: 84 I have personally spent greater than 84 minutes of critical care time in the direct management of this patient. This includes bedside care, interpretation of diagnostic studies, and testing, discussion with consultants, patient, and family members, and other required patient management activities. This 84 minutes is in excess of all separately billable procedures. Discharge Plan Visit Data Chief Complaint: Tachycardia Stated Complaint: HIGH HEART RATE, 150-160 ED Provider: Dean Gr Discharge Problem: Atrial flutter with rapid ventricular response Patient Disposition: Admitted As Inpatient Condition: Serious Discharge Instructions Interventions: ED Discharge Assessment Last Done: 01/21/25 23:36 Forms Stand Alone Forms: [employer] Prescriptions Prescriptions: No Action levothyroxine 88 mcg tablet 88 mcg PO DAILY Referrals Referrals: Jn Cuevsa MD [Primary Care Provider] -
[2025-01-21 23:41] LABS: Amphetamines+Metham, Urine Neg (Neg); MDMA (Ecstacy), Urine Neg (Neg); Marijuana, Urine Neg (Neg)
[2025-01-22] MEDS ORDERED: NITROGLYCERIN SL 0.4 MG/TAB TAB SL PRN (00:14)
[2025-01-22] MEDS ORDERED: POLYETHYLENE (MIRALAX) 17 GM PACK PO PRN (00:14)
[2025-01-22] MEDS ORDERED: ACETAMINOPHEN 325 MG TAB PO PRN (00:14)
[2025-01-22] MEDS ORDERED: METOPROLOL TARTRATE 1 MG/ML VIAL IV PRN (00:14)
[2025-01-22] MEDS: METOPROLOL TARTRATE 25 MG TAB PO STA (00:31)
[2025-01-22] MEDS: HEPARIN 25000 UNIT/500 ML D5W 25,000 UNITS/500 ML BAG IV SCH (01:11)
[2025-01-22] MEDS: Heparin IV Adult Wt-Based Low-Dose *NO* INITIAL Bolus Protocol IV STA (01:13)
[2025-01-22] MEDS: LEVOTHYROXINE SODIUM 88 MCG TABLET PO SCH (06:23)
[2025-01-22] MEDS: METOPROLOL TARTRATE 25 MG TAB PO SCH (08:12)
[2025-01-22 08:16] LABS: Anion Gap 9.0 (3-11); Calcium 8.4 mg/dl (8.6-10.3); Carbon Dioxide 21.0 mmol/L (21-32); Chloride 109.0 mmol/L (98-107); Magnesium 1.8 mg/dl (1.7-2.4); Potassium 3.9 mmol/L (3.5-5.1); Sodium 139.0 mmol/L (136-145)
[2025-01-22 08:23] LABS: Blood Urea Nitrogen 10.0 mg/dl (6-23); Creatinine Clr Calc Pharmacy 126.1 ml/min; Glucose 88.0 mg/dl (70-99(Fasting))
[2025-01-22 08:27] LABS: Hematocrit (blood only) 34.7 % (37.0-47.0); Hemoglobin 11.5 g/dl (12.0-16.0); Immature Granulocytes # (auto) 0.03 K/uL (0.01-0.20); Immature Granulocytes % (auto) 0.4 %; Mean Corpuscular Hemoglobin 32.8 pg (25.0-34.0); Mean Corpuscular Volume 98.9 fL (80.0-100.0); Platelet Count 256 K/uL (130-400); RDW Standard Deviation 45.5 fL (36.4-46.3); Red Blood Count 3.51 M/uL (4.20-5.40); White Blood Count 8.44 K/ul (4.8-10.8)
--- NOTE | 2025-01-22 08:36 | Cardiology Consultation ---
Date of Consultation January 22, 2025 Assessment & Plan (1) Atrial flutter with rapid ventricular response: (2) Hypothyroidism: Plan Patient is a 45 year old female admitted with typical atrial flutter RVR likely due to chronic thyroid disease contributing. Converted to NSR with IV Cardizem and metoprolol. Started on IV heparin. HS troponin negative x2. Echo with preserved LVEF, normal LA size. Recommendations: Transition IV heparin to oral Eliquis 5 mg BID this morning. Case management to verify cost and provide copay card. Recommend anticoagulation for 30 days at least. Transition to oral metoprolol succinate 12.5 mg daily on discharge. She already received metoprolol tartrate this morning. Dose limited due to chronic hypotension. Supplement magnesium this morning. F/U with PCP regarding hypothyroidism. Consider endocrine follow up as well. Continue levothyroxine. Will arrange EP evaluation as an outpatient for treatment options of atrial flutter and consideration of future ablation. Stable for discharge today No further cardiac testing warranted Case discussed with Dr. Chico Mchugh spent a total of 60 minutes on the date of service in preparation, delivery, and documentation of the care provided to this patient, excluding any time spent in the performance of separately billed services. Sushma Sen PA-C Department of Cardiology, [facility] This chart was completed in part utilizing Speech Voice Recognition Software. Grammatical errors, random word insertions, pronoun errors, and incomplete sentences are an occasional consequence of this system due to software limitations, ambient noise, and hardware issues. Any formal questions or conc erns about the content, text, or information contained within the body of this dictation should be directly addressed to the provider for clarification. Supervising Physician Co-Signing Physician Notes Patient was seen and personally examined, chart and medications telemetry reviewed Care management as outlined by advanced provider above, discussed and personally endorsed 45-year-old with a greater than 1 weeks history of intermittent palpitations and tachycardia presenting with typical atrial flutter. Successfully converted to sinus rhythm with rate management. Discussed paroxysmal atrial flutter in detail with patient Plan as outlined above anticoagulation with Eliquis for 30 days Low-dose beta-selena with metoprolol succinate 12-1/2 mg daily Patient to present promptly with any recurrence of tachyarrhythmias Outpatient evaluation for EP to establish care and discuss options of flutter ablation Goals to remain euthyroid History of Present Illness Reason for Consultation: Atrial flutter RVR Requesting Physician: Jairo Hospitalist Attending Physician: Jatinder Armstrong DO History of Present Illness Patient is a 45 year old female who presented to [facility] yesterday with complaints of palpitations intermittently over the last week, worsening yesterday with HR of 150 recorded at home with associated dizziness and palpitations. Upon arrival to ER, patient found to be tachycardic. Initially thought to be SVT, given adenosine, but when rates slowed, diagnosed with atrial flutter RVR. EKG on admission consistent with typical atrial flutter, not SVT. Started on IV heparin and IV Cardizem and metoprolol. Patient converted to NSR around 23:23 on 01/21. HS troponin negative x2. Other labs unremarkable. Magnesium low normal. No chest pain reported. She has a long history of thyroid disorder. She can "feel" when her thyroid is off. She self reduced dose of levothyroxine from 100 mcg to 88 mcg last week due to symptoms and palpitations. She reports this mildly aided her symptoms. TSH after adjustment remained borderline low. She previously followed with endocrine at [facility] but no recent visits Echo this morning with preserved LVEF, no wall motion abnormalities, no valvular disease. At time of consult, patient feeling fairly well. Notes feeling tired. Lack of sleep last night. Mild sense of palpitations this morning. She remains in NSR in the 60's. No dizziness. BP is low in the 90's but she reports this is her "normal" and chronically low. No dizziness or lightheadedness. She is active on a regular basis. History includes: 1. Alma's granulomatosis 2. Hypothyroidism with prior Xavi's thyroiditis 3. GERD with history of subglottic stenosis 4. 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 Negative hypercoagulable work up. Allergies Allergy/AdvReac Type Severity Reaction Status Date / Time Penicillins Allergy Severe FULL BODY Verified 01/21/25 22:17 RASH Sulfa (Sulfonamide Allergy Severe ANAPHYLAXIS Verified 01/21/25 22:17 Antibiotics) amoxicillin Allergy Intermediate rash Verified 01/21/25 22:17 Macrolide Antibiotics Allergy Intermediate rash Verified 01/21/25 22:17 nitrofurantoin Allergy Unknown CAN'T Verified 01/21/25 22:17 REMEMBER hydromorphone AdvReac Intermediate Pt states Verified 01/21/25 22:17 muscles in neck&all over become tight and painful mesalamine AdvReac Intermediate multiple Verified 01/21/25 22:17 side effects Home Medications Medication Instructions Recorded Confirmed Type levothyroxine 88 mcg tablet 88 mcg PO DAILY 01/21/25 01/21/25 History apixaban 5 mg tablet (Eliquis) 5 mg PO BID 30 days #60 tabs 01/22/25 Rx Patient History Medical History Syncope Non-cardiac chest pain Hypothyroidism Family History Other No significant family history Social History Smoking Status: Never smoker Second Hand Exposure: No; Do You Dip or Chew Tobacco: No; Hx Alcohol Use: No Hx Substance Use: No Preferred Language: Sami Communication Ability: Effective Riding Double Required: No Beliefs That Will Affect Care: None marital status: Current Living Situation: Family Other Information That Helps Us Care for You: No Feels Safe at Home: Yes Safety Concerns: Feels Safe At This Time Assistive Devices: None Review of Systems Review of Systems: All systems reviewed & are unremarkable except as noted in HPI & below Physical Exam Constitutional: WD/WN, vitals as above Neck: normal visual inspection Respiratory: normal respiratory effort Auscultation: lungs clear to auscultation bilaterally Cardiovascular: Rate/Rhythm: regular rate and regular rhythm Heart Sounds: normal S1 and normal S2; no murmur Vessels: no JVD Extremities: no edema Gastrointestinal (Abdomen): normal bowel sounds, soft, nontender, no hepatosplenomegaly Musculoskeletal: no cyanosis or clubbing, extremities motor strength 5/5 Neurologic: PERRL, EOMI, accommodation nl, no face palsy, no dysarthria Psychiatric: A+Ox3, euthymic affect Results & Data Vital Signs (Past 12 Hours) Vital Signs Temp Pulse Pulse Resp BP BP Pulse Ox 01/22/25 02:47 36.5 C 69 16 91/55 L 97 01/22/25 01:18 105 H 01/22/25 00:39 01/22/25 00:39 36.4 C L 82 16 102/64 97 01/22/25 00:14 01/21/25 23:36 97 H 18 105/72 100 01/21/25 22:52 90 01/21/25 22:46 107 H 18 103/66 100 01/21/25 22:44 153 H 01/21/25 22:40 82/58 L 01/21/25 22:36 148 H 17 106/63 96 01/21/25 22:30 110 H 90/56 L 96 01/21/25 22:21 153 H 14 92/71 L 98 01/21/25 22:10 99/69 L 01/21/25 22:00 124 H 101/70 01/21/25 22:00 86 10 L 101/70 98 01/21/25 21:50 98 H 15 107/64 98 01/21/25 21:48 128 H 14 101/67 98 01/21/25 21:44 82/70 L 01/21/25 21:42 97 H 10 L 97 01/21/25 21:40 91/70 L 01/21/25 21:39 139 H 14 99 01/21/25 21:37 103/63 01/21/25 21:10 120/91 01/21/25 21:09 100 H 15 01/21/25 21:06 93 H 9 L 01/21/25 21:06 102/68 01/21/25 21:03 92/58 L 01/21/25 21:03 159 H 8 L 01/21/25 21:00 101/79 01/21/25 20:48 99 H 01/21/25 20:42 147 H 01/21/25 20:33 01/21/25 20:30 119/84 01/21/25 20:30 155 H 15 01/21/25 20:29 155 H O2 Del Method O2 Del Method 01/22/25 02:47 Room Air 01/22/25 01:18 01/22/25 00:39 Room Air 01/22/25 00:39 Room Air 01/22/25 00:14 Room Air 01/21/25 23:36 Room Air 01/21/25 22:52 01/21/25 22:46 01/21/25 22:44 01/21/25 22:40 01/21/25 22:36 01/21/25 22:30 01/21/25 22:21 01/21/25 22:10 01/21/25 22:00 01/21/25 22:00 01/21/25 21:50 01/21/25 21:48 Room Air 01/21/25 21:44 01/21/25 21:42 01/21/25 21:40 01/21/25 21:39 01/21/25 21:37 01/21/25 21:10 01/21/25 21:09 01/21/25 21:06 01/21/25 21:06 01/21/25 21:03 01/21/25 21:03 01/21/25 21:00 01/21/25 20:48 01/21/25 20:42 01/21/25 20:33 Room Air 01/21/25 20:30 01/21/25 20:30 01/21/25 20:29 Laboratory Results Cardiac Enzymes 01/21/25 01/22/25 Range/Units 20:32 07:20 Troponin I High Sens 4.2 5.6 (0-14) pg/ml Coagulation 01/21/25 Range/Units 20:32 PT 10.7 (9.0-12.0) Seconds APTT 27 (21-31) Seconds CBC 01/21/25 01/22/25 Range/Units 20:32 07:20 WBC 11.75 H Cancelled (4.8-10.8) K/ul RBC 4.09 L Cancelled (4.20-5.40) M/uL Hgb 13.6 Cancelled (12.0-16.0) g/dl Hct 39.8 Cancelled (37.0-47.0) % Plt Count 314 Cancelled (130-400) K/uL Neut # (Auto) 7.70 H Cancelled (1.40-6.50) K/uL Lymph # (Auto) 2.76 Cancelled (1.20-3.40) K/uL [place] # (Auto) 1.05 H Cancelled (0.11-0.59) K/uL Eos # (Auto) 0.16 Cancelled (0.00-0.50) K/uL Baso # (Auto) 0.06 Cancelled (0.00-0.20) K/uL Comprehensive Metabolic Panel 01/21/25 01/22/25 Range/Units 20:32 07:20 Sodium 137 139 (136-145) mmol/L Potassium 3.7 3.9 (3.5-5.1) mmol/L Chloride 103 109 H (98-107) mmol/L Carbon Dioxide 24 21 (21-32) mmol/L BUN 17 10 (6-23) mg/dl Creatinine 0.79 0.49 L D (0.6-1.2) mg/dl Glucose 95 88 (70-99(Fasting)) mg/dl Calcium 9.6 8.4 L (8.6-10.3) mg/dl Intake and Output 01/21/25 01/22/25 01/22/25 22:59 06:59 14:59 Intake Total 2500 / 3225.0 725.0 / 3225.0 Balance 2500 / 3225.0 725.0 / 3225.0 Intake: IV 2500 / 3125.0 625.0 / 3125.0 Heparin 76275 Unit/500 ml D5w 25,000 units In 500 ml @ 600 UNITS/HR 12 mls/hr IV .Q24H [facility] Rx#:[id number] Sodium Chloride 0.9% 500 ml @ 2500 / 2500 999 mls/hr IV .Q31M ONE Rx#: [id number] Sodium Chloride 0.9% 500 ml @ 500 / 500 125 mls/hr IV .Q4H [facility] Rx#: [id number] dilTIAZem HCL 125 mg In 125.0 / 125.0 Dextrose 5% 100 ml @ 5 MG/HR 5 mls/hr IV .Q24H [facility] Rx#: [id number] Oral 100 / 100 Other: # Unmeasured Voids 1 Weight 52 kg 53.977 kg Weight Measurement Method Built in [facility] Built in [facility] Diagnostic Findings Telemetry reviewed: NSR in the 60's this morning. She converted from atrial flutter last evening around 23:23 Echo report reviewed this morning: Normal LVEF at 60-65% Normal wall motion No significant valvular disease LA size is normal. EKG reviewed from admission: Atrial flutter with RVR at 148 bmp Repeat EKG this morning: NSR Low voltage QRS Non specific T wave abnormality in anterior leads Chest X-Ray 01/21/25 20:33 Exam(s): XR CXR 1 VIEW EXAM: XR Chest, 1 View CLINICAL HISTORY: Reason for exam: Chest pain, nonspecific. TECHNIQUE: Frontal view of the chest. COMPARISON: Prior chest x-ray from June 17, 2024. FINDINGS: Lungs: Mild to moderate peribronchial thickening of the central bronchi. No consolidation. Pleural space: Unremarkable. No pneumothorax. Heart: Unremarkable. No cardiomegaly. Mediastinum: Unremarkable. Normal mediastinal contour. Bones/joints: Unremarkable. No acute fracture. IMPRESSION: Bronchitis, which may be of infectious or inflammatory etiologies. No consolidation or pleural effusion Electronically signed by: Rola Crow MD 01/21/25 22:11 PM Chest CTA 01/21/25 20:34 Exam(s): CTA CHEST IV Amt: 115 ml optiray 320 EXAM: CT Angiography Chest With Intravenous Contrast CLINICAL HISTORY: Reason for exam: Chest Pain, eval for PE. TECHNIQUE: Axial computed tomographic angiography images of the chest with intravenous contrast. CTDI is 16 mGy and DLP is 231.33 mGy-cm. Automated exposure control was utilized for the study. A dose lowering technique was utilized adhering to the principles of ALARA. MIP reconstructed images were created and reviewed. COMPARISON: CT 08/02/2013. FINDINGS: Pulmonary arteries: Unremarkable. No pulmonary embolism. Aorta: No acute findings. Normal caliber. No dissection. Lungs: No consolidation. Pleural space: No pleural effusion. No pneumothorax. Heart: Unremarkable. Bones/joints: No acute fracture. Soft tissues: Unremarkable. Lymph nodes: Unremarkable. IMPRESSION: Normal chest CTA. No pulmonary embolism. Electronically signed by: Bruno Chávez MD 01/21/25 21:59 PM Prior outpatient data reviewed: ZIO report reviewed from May 2024: CONCLUSIONS: Preliminary Findings Prepared by ZAID Moreau 06/27/24 Duration: 14 days Final Interpretation Patient had a min HR of 50 bpm, max HR of 141 bpm, and avg HR of 77 bpm. Predominant underlying rhythm was Sinus Rhythm. Isolated SVEs were rare (<1.0%), SVE Couplets were rare (<1.0%), and no SVE Triplets were present. Isolated VEs were rare (<1.0%), and no VE Couplets or VE Triplets were present. No patient triggered events were submitted. Twelve diary events were submitted that correlated with sinus rhythm, rate 69-87 beats per minute. Exercise stress echo report reviewed dated Mar 2017: Interpretation Summary The examination is adequate to evaluate the referral indication. The exercise echocardiographic examination is normal without resting left ventricular wall motion abnormalities or inducible ischemia. The exercise test was terminated due to fatigue and shortness of breath. No chest discomfort was reported. Exercise capacity is above average . No significant valvular heart disease was present on the resting study. Medications Administered Current Inpatient Medications Acetaminophen (Acetaminophen 325 Mg Tab) 650 mg PO Q4H PRN PRN Reason: Pain or Fever Stop: 02/21/25 00:13 Apixaban (Apixaban 5 Mg Tablet) 5 mg PO BID [facility] Stop: 02/21/25 09:44 Last Admin: 01/22/25 10:06 Dose: 5 mg Magnesium Sulfate/Dextrose (Magnesium Sulfate / D5w) 1 gm in 100 mls @ 50 mls/hr IV ONE ONE Stop: 01/22/25 11:41 Last Admin: 01/22/25 10:06 Dose: Not Given Levothyroxine Sodium (Levothyroxine Sodium 88 Mcg Tablet) 88 mcg PO DAILYBB [facility] Stop: 02/21/25 06:29 Last Admin: 01/22/25 06:23 Dose: 88 mcg Metoprolol Tartrate (Metoprolol Tartrate 1 Mg/Ml Vial) 5 mg IV Q6H PRN PRN Reason: HR > 120 Stop: 02/21/25 00:13 Metoprolol Tartrate (Metoprolol Tartrate 25 Mg Tab) 25 mg PO TID [facility] Stop: 02/21/25 08:59 Last Admin: 01/22/25 08:12 Dose: 25 mg Nitroglycerin (Nitroglycerin Sl 0.4 Mg/Tab Tab) 0.4 mg SL Q5M PRN PRN Reason: Chest Pain Stop: 02/21/25 00:13 Polyethylene Glycol (Polyethylene (Miralax) 17 Gm Pack) 17 gm PO DAILY PRN PRN Reason: Constipation Stop: 02/21/25 00:13 PG Care Time/CCT Total # of Minutes Spent Total Time Spent with Patient: Total time spent is greater than 50% in coordination of care (as documented) at patient's floor/unit and/or counseling patient: 60 minutes Coding Level of Care Code 45046 OFFICE CONSULT LVL 5/55M Diagnoses Atrial flutter with rapid ventricular response I48.92 Hypothyroidism E03.9
[2025-01-22 09:25] LABS: ANTI-Xa, UFH(UnfractionatedHep < 0.10 IU/ml (0.3-0.7)
[2025-01-22] MEDS: APIXABAN 5 MG TABLET PO SCH (10:06)
[2025-01-22] MEDS: MAGNESIUM SULFATE / D5W 1 GM/100 ML BAG IV ONE (10:06)
[2025-01-22 11:08] VITALS: BP 93/52; PULSE 97; RESP 19; TEMP 98.6; O2SAT 94
--- NOTE | 2025-01-22 11:59 | Discharge Summary ---
Discharge Summary Date of Service January 22, 2025 Principal Dx & Hospital Course #1 = Principal Diagnosis (1) Atrial flutter with rapid ventricular response: 45-year-old female with past medical history significant for Xavi's thyroiditis, hypothyroidism, subglottic stenosis, Alma's granulomatosis, GERD, polyarthralgia, inflammatory bowel disease presents with palpitations and was found to be in rapid A-flutter last night. She has been having palpitations for the past 6-9 months. She had previously worn a 14 day holter monitor without any abnormalities. She was started on IV cardizem and quickly converted back to NSR. She was also placed on IV heparin. Cardio consulted, recommended switching to toprol 12.5 and eliquis BID. TTE normal EF without major valvular disease. Cardio cleared for DC home today. D/w patient, she is feeling well and wishes to go home. risks and benefits of AC d/w patient who agrees with plan. She is to f/u with her PCP regarding her hypothyroidism. SHe is also to f/u with cardio as OP. vitals stable on day of discharge. Notes For Next Care Provider Medication Changes From Visit Toprol and eliquis added Admission HPI Per Admitting Provider 45-year-old female with past medical history significant for Xavi's thyroiditis, hypothyroidism, subglottic stenosis, Alma's granulomatosis, GERD, polyarthralgia, inflammatory bowel disease presents with palpitations and was found to be in rapid A-flutter. Patient states all day today she was having palpitations and with exertion she was feeling short of breath and on home monitor heart rate was 150s when she decided come to the ER. In the ER heart rate were 150s thought to be initially SVT after adenosine she converted to a flutter. Currently started on Cardizem drip. Denies any headache. Denies dizziness. No nausea. No sweating. Denies any chest pain. Denies any cough. No runny nose or sore throat. No abdominal pain. Normal bowel and bladder movements. Denies any blood in stools or black stools. No rash. Patient is following with GI for IBD, not started on any medications yet. She was diagnosed Alma's granulomatosis in 2019 at [facility] and not any medications. Patient uses prednisone when her Alma's granulomatosis flares up. Patient states she did not needed prednisone more than a year now. Patient also states that recently she was having headaches and palpitations and she felt her thyroid was acting up and she reduced her thyroid dose from 100 mcg to 88 mcg a couple of days before testing for her thyroid function. Her thyroid function was tested on 01/19/2025 and showed TSH was low normal and was advised to continue Synthyroid 88 mcg daily. Patient states she felt better after reducing thyroid dose. Past medical history. As mentioned above Past surgical history. . Colonoscopy with biopsy. EGD. EGD with biopsy. Social history. . No smoking. No alcohol use. No drug use. Family history. Aunt had breast cancer. Aunt had ovarian cancer. Maternal grandmother had cancer. Father had CAD. Hypertension. Mother had mitral valve prolapse. Discharge Exam Vitals and labs reviewed General: Well appearing, NAD HEENT: EOMI, PERRLA Neck: Supple Cardiac: RRR no rubs gallops or murmurs Lungs: CTA no rhonchi wheezing or rales Abd: S NT ND BS positive : Deffered MSK: Full ROM. No obvious deformities Ext: No Edema cyanosis Skin: Warm, Dry Neuro: AOx3 No focal deficits. Psych: Normal Mood Updated Medication List Medication Instructions Recorded Confirmed Type levothyroxine 88 mcg tablet 88 mcg PO DAILY 01/21/25 01/21/25 History apixaban 5 mg tablet (Eliquis) 5 mg PO BID 30 days #60 tabs 01/22/25 Rx metoprolol succinate 25 mg 12.5 mg (1/2 x 25 mg) PO QAM 30 01/22/25 Rx tablet,extended release 24 hr days #15 tabs Hospital Stay Data Consultations 01/21/25 22:03 ED Decision to Admit Stat 01/22/25 08:00 Consult Cardiology Routine Diagnostic Imagining Performed 01/21/25 20:34 CT angio chest PE protocol Stat Pending Results Patient Have Any Pending Studies at Discharge: No Discharge Instructions Given to Patient (Per Discharging Provider) Please follow up with cardiology and your PCP as outpatient. If you develop palpitations, please immediately check your blood pressure and heart rate. if your heart rate is above 100, please notify your counter intelligence. Total Time Total Time Spent Total Time Spent (In Minutes): 39
[2025-01-23] MEDS ORDERED: METOPROLOL SUCC 25MG EXT REL TAB PO SCH (09:00)
== END 2025-01-22 12:22 | disposition home or self-care (01) | DRG 309 ==
LOC: ED 20:14 → SUATTDRO 23:01 → 2S 23:01

== ENCOUNTER 2025-01-23 12:02 | Inpatient (IN) ==
--- NOTE | 2025-01-23 13:08 | Emergency Department Note ---
History of Present Illness General Chief complaint: Cardiac Assessment Stated complaint: HEART Time Seen by Provider: 01/23/25 12:33 History of Present Illness This is a 45-year-old female that presents to the emergency department via private vehicle with complaints of "elevated heart rate". The patient notes she was recently here in the ED and diagnosed with a flutter, currently anticoagulated on oral Eliquis and rate controlled on oral metoprolol 12.5 mg. This is metoprolol succinate. Last dose was this morning. She notes that she accidentally took a full 25 mg metoprolol succinate tablet this morning. She noted that when she was moving today she felt her heart race again and was in the 140s. She was concerned there for prompting arrival here today. She denies any fevers or chills. No nausea or vomiting. No diarrhea. Patient notes that the heart racing episode occurred today around 9:30 AM. No chest pain. No shortness of breath. Home Medications Medication Instructions Recorded Confirmed Type levothyroxine 88 mcg tablet 88 mcg PO DAILY 01/21/25 01/21/25 History apixaban 5 mg tablet (Eliquis) 5 mg PO BID 30 days #60 tabs 01/22/25 Rx metoprolol succinate 25 mg 12.5 mg (1/2 x 25 mg) PO QAM 30 01/22/25 Rx tablet,extended release 24 hr days #15 tabs Allergies Allergy/AdvReac Type Severity Reaction Status Date / Time Penicillins Allergy Severe FULL BODY Verified 01/21/25 22:17 RASH Sulfa (Sulfonamide Allergy Severe ANAPHYLAXIS Verified 01/21/25 22:17 Antibiotics) amoxicillin Allergy Intermediate rash Verified 01/21/25 22:17 Macrolide Antibiotics Allergy Intermediate rash Verified 01/21/25 22:17 nitrofurantoin Allergy Unknown CAN'T Verified 01/21/25 22:17 REMEMBER hydromorphone AdvReac Intermediate Pt states Verified 01/21/25 22:17 muscles in neck&all over become tight and painful mesalamine AdvReac Intermediate multiple Verified 01/21/25 22:17 side effects Past Med/Surg History Problem List (Updated 01/23/25 @ 21:43 by Amol Lake PA-C) Atrial flutter with rapid ventricular response (Acute) Cough (Acute) Cough (Acute) Seasonal allergies (Acute) Syncope (Acute) Medical History Syncope Non-cardiac chest pain Hypothyroidism Family History Other No significant family history Social History Smoking Status: Never smoker Second Hand Exposure: No; Do You Dip or Chew Tobacco: No; Tobacco Cessation Education Requested by Patient: No Hx Alcohol Use: No Hx Substance Use: No Preferred Language: Maltese Communication Ability: Effective District [employer] Required: No Beliefs That Will Affect Care: None marital status: Current Living Situation: Spouse Other Information That Helps Us Care for You: No Feels Safe at Home: Yes Safety Concerns: Feels Safe At This Time Assistive Devices: None Review of Systems A total of 10 systems reviewed and were otherwise negative Physical Exam Vital Signs Vital Signs - 24 hr 01/23/25 12:03 01/23/25 12:26 01/23/25 12:30 Temperature 36.5 C Temperature Source Temporal Artery Scan Pulse Rate 68 75 85 Pulse Rate [Right Finger] Pulse Rate from SpO2 Sensor Respiratory Rate 18 20 Respiratory Effort / Characteristics Non-Labored Spontaneous Respiratory Depth Normal Respiratory Pattern Regular Blood Pressure 111/72 115/69 Blood Pressure [Left Arm] Blood Pressure Mean 85 84 Blood Pressure Mean [Left Arm] Blood Pressure Position [Left Arm] Pulse Oximetry 100 96 Oxygen Delivery Method Room Air Room Air Sepsis Recent Fever Within 48 Hours No Sepsis New/Unexplained Change in Mental Status N/A Sepsis Action Taken by Nursing No Action Required 01/23/25 13:30 01/23/25 13:40 01/23/25 13:40 Temperature Temperature Source Pulse Rate 82 Pulse Rate [Right Finger] Pulse Rate from SpO2 Sensor Respiratory Rate 12 Respiratory Effort / Characteristics Respiratory Depth Respiratory Pattern Blood Pressure 95/54 L Blood Pressure [Left Arm] Blood Pressure Mean 67 Blood Pressure Mean [Left Arm] Blood Pressure Position [Left Arm] Pulse Oximetry 95 96 96 Oxygen Delivery Method Room Air Room Air Room Air Sepsis Recent Fever Within 48 Hours Sepsis New/Unexplained Change in Mental Status Sepsis Action Taken by Nursing 01/23/25 14:06 01/23/25 14:42 01/23/25 15:00 Temperature Temperature Source Pulse Rate 86 91 H Pulse Rate [Right Finger] Pulse Rate from SpO2 Sensor 83 Respiratory Rate 14 23 Respiratory Effort / Characteristics Respiratory Depth Respiratory Pattern Blood Pressure 123/76 107/63 Blood Pressure [Left Arm] Blood Pressure Mean 91 84 Blood Pressure Mean [Left Arm] Blood Pressure Position [Left Arm] Pulse Oximetry 96 97 Oxygen Delivery Method Room Air Sepsis Recent Fever Within 48 Hours Sepsis New/Unexplained Change in Mental Status Sepsis Action Taken by Nursing 01/23/25 15:06 01/23/25 15:21 01/23/25 15:24 Temperature Temperature Source Pulse Rate 83 85 89 Pulse Rate [Right Finger] Pulse Rate from SpO2 Sensor 75 70 82 Respiratory Rate 15 14 12 Respiratory Effort / Characteristics Respiratory Depth Respiratory Pattern Blood Pressure Blood Pressure [Left Arm] Blood Pressure Mean Blood Pressure Mean [Left Arm] Blood Pressure Position [Left Arm] Pulse Oximetry 99 98 96 Oxygen Delivery Method Sepsis Recent Fever Within 48 Hours Sepsis New/Unexplained Change in Mental Status Sepsis Action Taken by Nursing 01/23/25 15:30 01/23/25 15:39 01/23/25 15:42 Temperature Temperature Source Pulse Rate 87 85 Pulse Rate [Right Finger] Pulse Rate from SpO2 Sensor 69 60 Respiratory Rate 15 22 Respiratory Effort / Characteristics Respiratory Depth Respiratory Pattern Blood Pressure 110/64 Blood Pressure [Left Arm] Blood Pressure Mean 77 Blood Pressure Mean [Left Arm] Blood Pressure Position [Left Arm] Pulse Oximetry 98 97 Oxygen Delivery Method Sepsis Recent Fever Within 48 Hours Sepsis New/Unexplained Change in Mental Status Sepsis Action Taken by Nursing 01/23/25 15:54 01/23/25 16:06 01/23/25 16:27 Temperature Temperature Source Pulse Rate 85 85 84 Pulse Rate [Right Finger] Pulse Rate from SpO2 Sensor 66 74 68 Respiratory Rate 20 18 15 Respiratory Effort / Characteristics Respiratory Depth Respiratory Pattern Blood Pressure Blood Pressure [Left Arm] Blood Pressure Mean Blood Pressure Mean [Left Arm] Blood Pressure Position [Left Arm] Pulse Oximetry 97 94 95 Oxygen Delivery Method Sepsis Recent Fever Within 48 Hours Sepsis New/Unexplained Change in Mental Status Sepsis Action Taken by Nursing 01/23/25 16:30 01/23/25 16:30 01/23/25 16:30 Temperature Temperature Source Pulse Rate 80 Pulse Rate [Right Finger] Pulse Rate from SpO2 Sensor 68 Respiratory Rate 14 Respiratory Effort / Characteristics Respiratory Depth Respiratory Pattern Blood Pressure 99/64 L 99/64 L 99/64 L Blood Pressure [Left Arm] Blood Pressure Mean 75 73 73 Blood Pressure Mean [Left Arm] Blood Pressure Position [Left Arm] Pulse Oximetry 95 Oxygen Delivery Method Sepsis Recent Fever Within 48 Hours Sepsis New/Unexplained Change in Mental Status Sepsis Action Taken by Nursing 01/23/25 16:30 01/23/25 16:36 01/23/25 17:00 Temperature Temperature Source Pulse Rate 89 Pulse Rate [Right Finger] Pulse Rate from SpO2 Sensor 63 Respiratory Rate 12 Respiratory Effort / Characteristics Respiratory Depth Respiratory Pattern Blood Pressure 99/64 L 97/51 L Blood Pressure [Left Arm] Blood Pressure Mean 73 67 Blood Pressure Mean [Left Arm] Blood Pressure Position [Left Arm] Pulse Oximetry 97 Oxygen Delivery Method Sepsis Recent Fever Within 48 Hours Sepsis New/Unexplained Change in Mental Status Sepsis Action Taken by Nursing 01/23/25 17:00 01/23/25 17:00 01/23/25 17:06 Temperature Temperature Source Pulse Rate 87 Pulse Rate [Right Finger] Pulse Rate from SpO2 Sensor 72 Respiratory Rate 9 L Respiratory Effort / Characteristics Respiratory Depth Respiratory Pattern Blood Pressure 97/51 L 97/51 L Blood Pressure [Left Arm] Blood Pressure Mean 67 67 Blood Pressure Mean [Left Arm] Blood Pressure Position [Left Arm] Pulse Oximetry 96 Oxygen Delivery Method Sepsis Recent Fever Within 48 Hours Sepsis New/Unexplained Change in Mental Status Sepsis Action Taken by Nursing 01/23/25 17:18 01/23/25 17:21 01/23/25 17:24 Temperature Temperature Source Pulse Rate 88 82 89 Pulse Rate [Right Finger] Pulse Rate from SpO2 Sensor 73 62 67 Respiratory Rate 10 L 11 L 15 Respiratory Effort / Characteristics Respiratory Depth Respiratory Pattern Blood Pressure Blood Pressure [Left Arm] Blood Pressure Mean Blood Pressure Mean [Left Arm] Blood Pressure Position [Left Arm] Pulse Oximetry 95 95 96 Oxygen Delivery Method Sepsis Recent Fever Within 48 Hours Sepsis New/Unexplained Change in Mental Status Sepsis Action Taken by Nursing 01/23/25 17:30 01/23/25 17:31 01/23/25 17:31 Temperature Temperature Source Pulse Rate Pulse Rate [Right Finger] Pulse Rate from SpO2 Sensor Respiratory Rate Respiratory Effort / Characteristics Respiratory Depth Respiratory Pattern Blood Pressure 97/57 L 115/61 115/61 Blood Pressure [Left Arm] Blood Pressure Mean 67 81 81 Blood Pressure Mean [Left Arm] Blood Pressure Position [Left Arm] Pulse Oximetry Oxygen Delivery Method Sepsis Recent Fever Within 48 Hours Sepsis New/Unexplained Change in Mental Status Sepsis Action Taken by Nursing 01/23/25 17:33 01/23/25 17:42 01/23/25 17:54 Temperature Temperature Source Pulse Rate 93 H 95 H 86 Pulse Rate [Right Finger] Pulse Rate from SpO2 Sensor 73 68 66 Respiratory Rate 17 18 10 L Respiratory Effort / Characteristics Respiratory Depth Respiratory Pattern Blood Pressure Blood Pressure [Left Arm] Blood Pressure Mean Blood Pressure Mean [Left Arm] Blood Pressure Position [Left Arm] Pulse Oximetry 97 96 97 Oxygen Delivery Method Sepsis Recent Fever Within 48 Hours Sepsis New/Unexplained Change in Mental Status Sepsis Action Taken by Nursing 01/23/25 17:57 01/23/25 18:00 01/23/25 18:06 Temperature Temperature Source Pulse Rate 135 H Pulse Rate [Right Finger] 146 H Pulse Rate from SpO2 Sensor 135 H Respiratory Rate 17 Respiratory Effort / Characteristics Respiratory Depth Respiratory Pattern Blood Pressure 88/72 L Blood Pressure [Left Arm] 88/72 L Blood Pressure Mean 75 Blood Pressure Mean [Left Arm] 77 Blood Pressure Position [Left Arm] Lying Pulse Oximetry 97 Oxygen Delivery Method Sepsis Recent Fever Within 48 Hours Sepsis New/Unexplained Change in Mental Status Sepsis Action Taken by Nursing 01/23/25 18:06 01/23/25 18:09 01/23/25 18:13 Temperature Temperature Source Pulse Rate 136 H 145 H Pulse Rate [Right Finger] Pulse Rate from SpO2 Sensor 135 H 146 H Respiratory Rate 15 10 L Respiratory Effort / Characteristics Respiratory Depth Respiratory Pattern Blood Pressure 97/74 L Blood Pressure [Left Arm] Blood Pressure Mean 81 Blood Pressure Mean [Left Arm] Blood Pressure Position [Left Arm] Pulse Oximetry 97 99 Oxygen Delivery Method Sepsis Recent Fever Within 48 Hours Sepsis New/Unexplained Change in Mental Status Sepsis Action Taken by Nursing 01/23/25 18:21 01/23/25 18:30 01/23/25 18:42 Temperature Temperature Source Pulse Rate 103 H 101 H 101 H Pulse Rate [Right Finger] Pulse Rate from SpO2 Sensor 105 H 99 H 97 H Respiratory Rate 12 14 12 Respiratory Effort / Characteristics Respiratory Depth Respiratory Pattern Blood Pressure 114/64 114/64 Blood Pressure [Left Arm] Blood Pressure Mean 86 80 Blood Pressure Mean [Left Arm] Blood Pressure Position [Left Arm] Pulse Oximetry 100 97 98 Oxygen Delivery Method Sepsis Recent Fever Within 48 Hours Sepsis New/Unexplained Change in Mental Status Sepsis Action Taken by Nursing VITAL SIGNS - Vital signs and nursing notes were reviewed. Stable and afebrile. GENERAL -45-year-old female appearing her stated age who is in no acute distress. Communicates well with provider and answers questions appropriately. SKIN - Without rashes. No meningeal or petechial rash. HEAD - NC/AT. EYES - PERRL with EOMI bilaterally. Sclera anicteric. NECK - No nuchal rigidity. LUNGS - CTA CARDIAC - RRR EXTREMITIES - No clubbing or peripheral cyanosis. +5/5 strength noted in UE/LE bilaterally. NEUROLOGIC - Cranial nerves II through XII grossly intact. PSYCH -alert, oriented and pleasant on exam Course Administered Medications Apixaban (Apixaban 5 Mg Tablet) 5 mg PO BID EFREN Stop: 02/22/25 20:59 Last Admin: 01/23/25 21:21 Dose: 5 mg Documented By: EVERETTE Sodium Chloride (Nss) 1,000 mls @ 60 mls/hr IV .[id number] ONE Stop: 01/24/25 16:30 Last Admin: 01/24/25 00:16 Dose: 60 mls/hr Documented By: EVERETTE Levothyroxine Sodium (Levothyroxine Sodium 88 Mcg Tablet) 88 mcg PO DAILYBB EFREN Stop: 02/23/25 06:29 Last Admin: 01/24/25 06:00 Dose: 88 mcg Documented By: EVERETTE Discontinued Medications Sodium Chloride (Nss) 1,000 mls @ 999 mls/hr IV .[id number] ONE Stop: 01/23/25 19:12 Last Infusion: 01/23/25 20:24 Dose: Infused Documented By: Admin: 01/23/25 18:24 Dose: 999 mls/hr Documented By: FLOR Magnesium Sulfate/Dextrose (Magnesium Sulfate / D5w) 1 gm in 100 mls @ 50 mls/hr IV ONE ONE Stop: 01/24/25 01:48 Last Infusion: 01/24/25 02:20 Dose: Infused Documented By: Admin: 01/24/25 00:15 Dose: 50 mls/hr Documented By: EVERETTE Sotalol HCl (Sotalol Hcl 80 Mg Tab) 40 mg PO NOW ONE Stop: 01/23/25 19:00 Last Admin: 01/23/25 19:48 Dose: 40 mg Documented By: FLOR Medical Decision Making Laboratory Data 01/23/25 12:39 01/23/25 12:39 Lab Results 01/23/25 Range/Units 12:39 WBC 9.53 (4.8-10.8) K/ul RBC 3.94 L (4.20-5.40) M/uL Hgb 13.0 (12.0-16.0) g/dl Hct 38.9 (37.0-47.0) % MCV 98.7 (80.0-100.0) fL MCH 33.0 (25.0-34.0) pg MCHC 33.4 (32.0-36.0) g/dL RDW Std Deviation 45.3 (36.4-46.3) fL RDW Coeff of Mishel 12.4 (11.5-14.5) % Plt Count 278 (130-400) K/uL MPV 11.5 (9.4-12.4) fL Immature Gran % (Auto) 0.3 % Neut % (Auto) 77.1 % Lymph % (Auto) 14.6 % Cannon % (Auto) 6.5 % Eos % (Auto) 1.0 % Baso % (Auto) 0.5 % Neut # (Auto) 7.34 H (1.40-6.50) K/uL Lymph # (Auto) 1.39 (1.20-3.40) K/uL Cannon # (Auto) 0.62 H (0.11-0.59) K/uL Eos # (Auto) 0.10 (0.00-0.50) K/uL Baso # (Auto) 0.05 (0.00-0.20) K/uL Immature Gran # (Auto) 0.03 (0.01-0.20) K/uL ESR 32 H (0-20) mm/hr APTT 30 (21-31) Seconds PTT Ratio 1.1 Sodium 141 (136-145) mmol/L Potassium 4.0 (3.5-5.1) mmol/L Chloride 108 H (98-107) mmol/L Carbon Dioxide 24 (21-32) mmol/L Anion Gap 9 (3-11) BUN 9 (6-23) mg/dl Creatinine 0.55 L (0.6-1.2) mg/dl Est Cr Clr Drug Dosing 104.9 ml/min eGFR 116.56 BUN/Creatinine Ratio 16.4 (10-20) Glucose 84 (70-99(Fasting)) mg/dl Calcium 9.5 (8.6-10.3) mg/dl Phosphorus 2.7 (2.5-4.9) mg/dl Magnesium 1.9 (1.7-2.4) mg/dl Total Bilirubin 0.7 (0.2-1.0) mg/dl AST 18 (13-39) U/L ALT 10 (7-52) U/L Alkaline Phosphatase 78 (34-104) U/L Troponin I High Sens 3.5 (0-14) pg/ml C-Reactive Protein 2.48 H (0-0.5) mg/dl Total Protein 7.3 (6.0-8.3) gm/dl Albumin 3.7 (3.4-5.0) gm/dl Globulin 3.6 (2.5-4.0) gm/dl Albumin/Globulin Ratio 1.0 (0.9-2) Procalcitonin < 0.02 (0-0.5) ng/ml TSH 0.331 (0.300-4.500) uIu/ml HCG, Qual Negative (Negative) Anaplasma Smear See Comment Babesia Smear See Comment Lyme Disease Screen Negative (Negative) MDM Narrative Patient was seen and evaluated as above in room A09. Review was performed of nursing notes and vital signs. I did review pertinent previous visits and patient history. After obtaining a thorough history and physical examination the above work up was performed. Patient presents to us today with the above symptoms. She notes heart racing sensation earlier today. She did take 25 mg of metoprolol succinate today instead of the prescribed 12.5. This was accidental. On my assessment there is no tachycardia. She is resting comfortably. She does note intermittent palpitations. I will note that she had an echocardiogram and CTA of the chest which were rather unremarkable in the past few days. Options of care were discussed with the patient. IV access was established. Labs were drawn. An EKG was performed and this reveals sinus rhythm with PACs at a rate of 80 bpm. QTc 419. QRS 70. There is no ST elevation on this rhythm tracing. There is no leukocytosis or concerning anemia. No evidence of kidney or liver failure. Troponin is within normal range. Procalcitonin undetectable making sepsis less likely. hCG negative. TSH reveals euthyroid state. Lyme screen negative with further tickborne testing currently pending. Patient did asked that I order ESR, CRP, and inquired about stool studies. These were added. She also inquired about folate and B12 which were added. The patient during her time here had a few episodes of a flutter which I did review with Dr. Golden of cardiology. As the patient continued to convert back to normal sinus and had very few episodes of a flutter, we discussed having the patient continue with the 25 mg oral metoprolol succinate daily and follow-up with EP as an outpatient. However at 1757 was noted to be in atial flutter. Patient continued with this and then did have a blood pressure dropped to 88/72. She was symptomatic with this and was feeling unwell. IV fluids started and pressure improved and patient converted to sinus rhythm after about 20 minutes. Patient continue with normal blood pressure and heart rate normalized. I again discussed this with Dr. Golden and my plan at this time is medical admission. Case discussed with the hospitalist service. Please refer to further documentation regarding her stay. While in the department, I personally reevaluated the patient several times and each time the patient was found to be resting comfortably. The patient was educated upon management, educated upon todays findings/results, educated upon importance of follow up from today's visit, educated upon symptoms in which to return, had questions answered prior to discharge, verbalized understanding, and was discharged home in good condition. In the evaluation and treatment of this patient the following differential diagnoses were entertained: A-fib, a flutter, electrolyte disturbance, infectious etiology, among others. Impression & Plan Atrial flutter with rapid ventricular response Discharge Plan Visit Data Chief Complaint: Cardiac Assessment Stated Complaint: HEART ED Provider: Gary Donnelly ED Midlevel Provider: Amol Lake Discharge Problem: Atrial flutter with rapid ventricular response Patient Disposition: Admitted As Inpatient Condition: Good Discharge Instructions Interventions: ED Discharge Assessment Last Done: 01/23/25 20:23
[2025-01-23 13:18] LABS: Hematocrit (blood only) 38.9 % (37.0-47.0); Hemoglobin 13.0 g/dl (12.0-16.0); Immature Granulocytes # (auto) 0.03 K/uL (0.01-0.20); Immature Granulocytes % (auto) 0.3 %; Mean Corpuscular Hemoglobin 33.0 pg (25.0-34.0); Mean Corpuscular Volume 98.7 fL (80.0-100.0); Platelet Count 278 K/uL (130-400); RDW Standard Deviation 45.3 fL (36.4-46.3); Red Blood Count 3.94 M/uL (4.20-5.40); White Blood Count 9.53 K/ul (4.8-10.8)
[2025-01-23 13:21] LABS: Pregnancy Test, Serum Negative (Negative)
[2025-01-23 13:36] LABS: Alanine Aminotransferase 10.0 U/L (7-52); Albumin Globulin Ratio 1.0 (0.9-2); Albumin Level 3.7 gm/dl (3.4-5.0); Alkaline Phosphatase 78.0 U/L (34-104); Anion Gap 9.0 (3-11); Bilirubin,Total 0.7 mg/dl (0.2-1.0); Blood Urea Nitrogen 9.0 mg/dl (6-23); Calcium 9.5 mg/dl (8.6-10.3); Carbon Dioxide 24.0 mmol/L (21-32); Chloride 108.0 mmol/L (98-107); Creatinine Clr Calc Pharmacy 104.9 ml/min; Globulin 3.6 gm/dl (2.5-4.0); Glucose 84.0 mg/dl (70-99(Fasting)); Magnesium 1.9 mg/dl (1.7-2.4); Potassium 4.0 mmol/L (3.5-5.1); Sodium 141.0 mmol/L (136-145); Total Protein 7.3 gm/dl (6.0-8.3)
[2025-01-23 13:37] LABS: Procalcitonin < 0.02 ng/ml (0-0.5)
[2025-01-23 13:48] LABS: Thyroid Stimulating Hormone 0.331 uIu/ml (0.300-4.500)
[2025-01-23 13:53] LABS: Partial Thromboplastin Time 30 Seconds (21-31)
[2025-01-23 14:02] LABS: Lyme Screen Rflx Confirmation Negative (Negative)
[2025-01-23] MEDS: SODIUM CHLORIDE 0.9% 1,000 ML IV ONE (18:24)
--- NOTE | 2025-01-23 19:20 | History & Physical Report ---
Date of Service January 23, 2025 Assessment & Plan (1) Atrial flutter with rapid ventricular response: (2) Hypothyroidism: Plan Patient 45-year-old female with known paroxysmal atrial flutter, presents to the ED with rapid ventricular response and hypotension. Patient requires hospital level care and interventions, patient significantly symptomatic volume and rapid ventricular spots Admit to monitored setting Communication with cardiology, recommending starting sotalol orally and monitoring for 48 hours Continue Eliquis for anticoagulation EKG as needed for rhythm change Continue other outpatient medications Low-dose Xanax for anxiety History of Present Illness Chief Complaint: Low blood pressure and heart rate going fast Primary Care Provider: Jn Cuevas MD Patient is a 45-year-old female who has known paroxysmal atrial flutter. She was just discharged from the hospital yesterday after having a episode of atrial flutter with rapid ventricular response. She converted to sinus rhythm, was started on metoprolol low-dose and Eliquis. At home today she noticed her heart rate was ranging from anywhere from 45-145 and also was noted to have low blood pressure. She came back to the emergency room for evaluation per her recommendations from cardiology at the time of discharge. In the emergency room initially she was in sinus rhythm. She had extensive workup all of which was relatively unremarkable. However, during her stay in the ER she did have some bouts of paroxysmal atrial flutter with RVR. She was quite symptomatic with this. She was also hypotensive. She would then quickly convert back to sinus rhythm. Cardiology was contacted in the ER. They were trying to coordinate outpatient EP evaluation for the patient exponentially. However as she was being discharged she again converted into atrial flutter with RVR. This time she remained in rapid ventricular response. She was also hypotensive. She was given IV fluid resuscitation and her blood pressure improved along with the heart rate. With these findings it is recommended that she be kept in the hospital for additional treatment and evaluation. Time of my evaluation the patient heart rate was right around 100. It was irregular. She denies any chest pain currently but did admit to some chest discomfort when she was having the rapid rates. Otherwise no other significant changes since her discharge yesterday. Allergies Allergy/AdvReac Type Severity Reaction Status Date / Time Penicillins Allergy Severe FULL BODY Verified 01/21/25 22:17 RASH Sulfa (Sulfonamide Allergy Severe ANAPHYLAXIS Verified 01/21/25 22:17 Antibiotics) amoxicillin Allergy Intermediate rash Verified 01/21/25 22:17 Macrolide Antibiotics Allergy Intermediate rash Verified 01/21/25 22:17 nitrofurantoin Allergy Unknown CAN'T Verified 01/21/25 22:17 REMEMBER hydromorphone AdvReac Intermediate Pt states Verified 01/21/25 22:17 muscles in neck&all over become tight and painful mesalamine AdvReac Intermediate multiple Verified 01/21/25 22:17 side effects Home Medications Medication Instructions Recorded Confirmed Type levothyroxine 88 mcg tablet 88 mcg PO DAILY 01/21/25 01/21/25 History apixaban 5 mg tablet (Eliquis) 5 mg PO BID 30 days #60 tabs 01/22/25 Rx metoprolol succinate 25 mg 12.5 mg (1/2 x 25 mg) PO QAM 30 01/22/25 Rx tablet,extended release 24 hr days #15 tabs Past Med/Surg History Problem List Atrial flutter with rapid ventricular response (Acute) Cough (Acute) Cough (Acute) Seasonal allergies (Acute) Syncope (Acute) Medical History Syncope Non-cardiac chest pain Hypothyroidism Family History Other No significant family history Social History Smoking Status: Never smoker Second Hand Exposure: No; Do You Dip or Chew Tobacco: No; Hx Alcohol Use: No Hx Substance Use: No Preferred Language: Gabonese Communication Ability: 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 Sclera clear Neck: Soft, no adenopathy Lungs: Clear to auscultation, decreased, no wheezes rales or rhonchi CV: S1-S2, irregular Abdomen: Soft, nontender, nondistended Extremities: No significant edema Musculoskeletal: No significant joint tenderness Neuro: No focal deficits Psych: Cooperative, mildly anxious in appearance Results & Data Results & Data Vital Signs (Past 12 Hours) Vital Signs Temp Pulse Pulse Resp BP BP Pulse Ox 01/23/25 18:30 101 H 14 114/64 97 01/23/25 18:21 103 H 12 100 01/23/25 18:13 97/74 L 01/23/25 18:09 145 H 10 L 99 01/23/25 18:06 136 H 15 97 01/23/25 18:06 146 H 88/72 L 01/23/25 18:00 88/72 L 01/23/25 17:57 135 H 17 97 01/23/25 17:54 86 10 L 97 01/23/25 17:42 95 H 18 96 01/23/25 17:33 93 H 17 97 01/23/25 17:31 115/61 01/23/25 17:31 115/61 01/23/25 17:30 97/57 L 01/23/25 17:24 89 15 96 01/23/25 17:21 82 11 L 95 01/23/25 17:18 88 10 L 95 01/23/25 17:06 87 9 L 96 01/23/25 17:00 97/51 L 01/23/25 17:00 97/51 L 01/23/25 17:00 97/51 L 01/23/25 16:36 89 12 97 01/23/25 16:30 99/64 L 01/23/25 16:30 99/64 L 01/23/25 16:30 99/64 L 01/23/25 16:30 80 14 99/64 L 95 01/23/25 16:27 84 15 95 01/23/25 16:06 85 18 94 01/23/25 15:54 85 20 97 01/23/25 15:42 85 22 97 01/23/25 15:39 87 15 98 01/23/25 15:30 110/64 01/23/25 15:24 89 12 96 01/23/25 15:21 85 14 98 01/23/25 15:06 83 15 99 01/23/25 15:00 107/63 01/23/25 14:42 91 H 23 97 01/23/25 14:06 86 14 123/76 96 01/23/25 13:40 96 01/23/25 13:40 96 01/23/25 13:30 82 12 95/54 L 95 01/23/25 12:30 85 20 115/69 96 01/23/25 12:26 75 01/23/25 12:03 36.5 C 68 18 111/72 100 O2 Del Method 01/23/25 18:30 01/23/25 18:21 01/23/25 18:13 01/23/25 18:09 01/23/25 18:06 01/23/25 18:06 01/23/25 18:00 01/23/25 17:57 01/23/25 17:54 01/23/25 17:42 01/23/25 17:33 01/23/25 17:31 01/23/25 17:31 01/23/25 17:30 01/23/25 17:24 01/23/25 17:21 01/23/25 17:18 01/23/25 17:06 01/23/25 17:00 01/23/25 17:00 01/23/25 17:00 01/23/25 16:36 01/23/25 16:30 01/23/25 16:30 01/23/25 16:30 01/23/25 16:30 01/23/25 16:27 01/23/25 16:06 01/23/25 15:54 01/23/25 15:42 01/23/25 15:39 01/23/25 15:30 01/23/25 15:24 01/23/25 15:21 01/23/25 15:06 01/23/25 15:00 01/23/25 14:42 01/23/25 14:06 Room Air 01/23/25 13:40 Room Air 01/23/25 13:40 Room Air 01/23/25 13:30 Room Air 01/23/25 12:30 Room Air 01/23/25 12:26 01/23/25 12:03 Room Air Diagnostic Findings Reviewed imaging, laboratory and diagnostic studies. Pertinent findings as below. CBC stable within normal ranges Electrolytes stable Creatinine 0.55 LFTs within normal range Troponin 3.5 C-reactive protein 2.4 TSH 0.331 Lyme negative Initial EKG personally reviewed by myself showed sinus rhythm. Reviewing telemetry at the bedside appears to be in atrial flutter/atrial fibrillation. Code Status & VTE Plan VTE Prophylaxis Plan VTE Prophylaxis will be ordered: No Reason for no VTE drug order: Treatment not indicated
[2025-01-23] MEDS: SOTALOL HCL 80 MG TAB PO ONE (19:48)
[2025-01-23] MEDS ORDERED: MELATONIN 3 MG TAB PO PRN (20:22)
[2025-01-23] MEDS ORDERED: ACETAMINOPHEN 325 MG TAB PO PRN (20:22)
[2025-01-23] MEDS ORDERED: ALUMINUM/MAGNESIUM SUSP 30 ML UDC PO PRN (20:22)
[2025-01-23] MEDS ORDERED: POLYETHYLENE (MIRALAX) 17 GM PACK PO PRN (20:22)
[2025-01-23] MEDS: APIXABAN 5 MG TABLET PO SCH (21:21)
[2025-01-23 21:54] LABS: Folate (Folic Acid),Ser orPlas > 22.30 ng/ml (>5.38); Vitamin B12 938 pg/ml (180-914)
[2025-01-23] MEDS ORDERED: ATROPINE SULFATE 0.1 MG/ML 10ML SYR IV PRN (23:50)
[2025-01-24] MEDS: MAGNESIUM SULFATE / D5W 1 GM/100 ML BAG IV ONE (00:15)
[2025-01-24] MEDS: SODIUM CHLORIDE 0.9% 1,000 ML IV ONE (00:16)
[2025-01-24] MEDS: LEVOTHYROXINE SODIUM 88 MCG TABLET PO SCH (06:00)
[2025-01-24] MEDS: SOTALOL HCL 80 MG TAB PO SCH ×2 (08:11→20:28)
[2025-01-24 08:40] LABS: Anion Gap 6.0 (3-11); Blood Urea Nitrogen 12.0 mg/dl (6-23); Calcium 8.6 mg/dl (8.6-10.3); Carbon Dioxide 25.0 mmol/L (21-32); Chloride 109.0 mmol/L (98-107); Creatinine Clr Calc Pharmacy 110.3 ml/min; Glucose 93.0 mg/dl (70-99(Fasting)); Potassium 3.9 mmol/L (3.5-5.1); Sodium 140.0 mmol/L (136-145)
--- NOTE | 2025-01-24 09:07 | Cardiology Consultation ---
Date of Consultation January 24, 2025 Assessment & Plan (1) Paroxysmal atrial fibrillation: (2) Typical atrial flutter: (3) Hypothyroidism: (4) Hypomagnesemia: Plan Patient is a 45 year old female with underlying thyroid disorder presented to [place] ER earlier this week and diagnosed with symptomatic atrial flutter. Ultimately placed on low dose metoprolol succinate 12.5 mg daily and Eliquis. She returned to the ER the following day with recurrent symptomatic PAF/Flutter. Re-admitted. Electrolytes supplemented. Lyme testing negative. She has mildly elevated ESR and CRP. She reports she has seen rheumatology in the past for autoimmune process. Recently diagnosed with possible Crohn's disease. Echo earlier this week with preserved LVEF, no valvular disease. Recommendations: Started on sotalol 40 mg BID - first dose last night 01/23 PM. Received second dose of 40 mg this morning, 01/24. She continues to have breakthrough afib/flutter lasting several minutes with associated symptoms this morning. EKG this morning after sotalol dose demonstrating NSR with stable QT/QTc measurements < 500. No significant bradycardia on telemetry Given additional sotalol 40 mg this morning to equal 80 mg, transitioning to 80 mg BID this evening. Repeat EKG 2 hours after additional dose this morning. Keep magnesium > 2.0. Keep potassium 4.0-5.0 Continue thyroid supplementation. Consider endocrine follow up. Continue on telemetry. Patient will need to remain in hospital on telemetry for 6 doses. Possible discharge Monday. Will need EP f/u as well (case previously discussed with Dr. Jordan) Case discussed with Dr. Ruiz I spent a total of 60 minutes on the date of service in preparation, delivery, and documentation of the care provided to this patient, excluding any time spent in the performance of separately billed services. Sushma Sen PA-C Department of Cardiology, [facility] This chart was completed in part utilizing Speech Voice Recognition Software. Grammatical errors, random word insertions, pronoun errors, and incomplete sentences are an occasional consequence of this system due to software limitations, ambient noise, and hardware issues. Any formal questions or concerns about the content, text, or information contained within the body of this dictation should be directly addressed to the provider for clarification. Supervising Physician Co-Signing Physician Notes I have personally performed a history and physical examination on the patient. I have reviewed the advance practitioner's documentation, and I agree with, and take responsibility for the plan of care. 45-year-old female admitted with paroxysmal atrial flutter and rapid ventricular response. Periods of atrial fibrillation also documented per ECG. Low-dose sotalol initiated 01/23/2025 with 40 mg. Occasional episodes of atrial flutter and PACs overnight. Period of blocked PACs in a pattern of atrial bigeminy noted this morning without significant symptoms. Patient reports nearly constant palpitations over the past few weeks. She voices concern that her inflammatory/autoimmune condition may be contributing to her current cardiac issues. Denies chest pain or heaviness. No unusual shortness of breath. 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 ESR and CRP elevated currently although no obvious signs of infection/inflammation. Autoimmune issues include Alma's granulomatosis, Xavi's thyroiditis, and Crohn's colitis. Recent urinalysis demonstrating elevated leuk esterase with no urine culture pending at this time. Chest x-ray performed 01/21/2025 with peribronchial thickening of the central bronchi suggestive of infectious or inflammatory process. Recommendations: * Increase sotalol to 80 mg twice daily. * Daily ECG. * Patient remained hospitalized/monitored for total of 5 doses of sotalol. * Continue anticoagulation with apixaban * Outpatient EP referral to consider flutter ablation. * Further evaluation for infectious/inflammatory etiology of elevated ESR/CRP * Viral panel and urine culture ordered * Continue telemetry monitoring. * Thyroid supplementation as per internal medicine. Ronnie Ruiz DO, [facility] I spent a total of 50 minutes on the date of service in preparation, delivery, and documentation of the care provided to this patient, excluding any time spent in the performance of separately billed services. History of Present Illness Reason for Consultation: Atrial flutter and Atrial fibrillation Requesting Physician: Dr. Andres Attending Physician: Jatinder Armstrong DO History of Present Illness Patient is a 45 year old female who presented to [facility] yesterday with complaints of recurrent palpitations, paroxysmal atrial fibrillation and atrial flutter. Patient was admitted earlier this week with palpitations and diagnosed with typical atrial flutter RVR. She was started on Eliquis 5 mg BID and low dose metoprolol 12.5 mg daily. Dose limited due to hypotension. Afib/flutter likely caused by her underlying thyroid disorder. 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 She had an echo earlier this week demonstrating normal LVEF, no wall motion abnormalities and no valvular disease. Approx 24 hours after discharge, patient presented to the ER with recurrent palpitations, hypotension. upon admission she was in NSR, but during ER evaluation she was found to have paroxysmal atrial fibrillation and atrial flutter with RVR. During episodes she became symptomatic and hypotensive. Initially metoprolol was to be increased and outpatient EP f/u to be arranged. However, as patient was being discharged again, she had another recurrent episode. It was decided to admit patient and start her on sotalol 40 mg BID. First dose 01/23 at 20:00. she also received IV magnesium on admission for low normal levels. She has been following with GI in [place]. Previously also followed with rheumatology. Found to have possible Crohn's disease. She has mildly elevated ESR and CRP here in the hospital. History includes: 1. Alma's granulomatosis 2. Hypothyroidism with prior Xavi's thyroiditis 3. GERD with history of subglottic stenosis 4. 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 Negative hypercoagulable work up. Allergies Allergy/AdvReac Type Severity Reaction Status Date / Time Penicillins Allergy Severe FULL BODY Verified 01/21/25 22:17 RASH Sulfa (Sulfonamide Allergy Severe ANAPHYLAXIS Verified 01/21/25 22:17 Antibiotics) amoxicillin Allergy Intermediate rash Verified 01/21/25 22:17 Macrolide Antibiotics Allergy Intermediate rash Verified 01/21/25 22:17 nitrofurantoin Allergy Unknown CAN'T Verified 01/21/25 22:17 REMEMBER hydromorphone AdvReac Intermediate Pt states Verified 01/21/25 22:17 muscles in neck&all over become tight and painful mesalamine AdvReac Intermediate multiple Verified 01/21/25 22:17 side effects Home Medications Medication Instructions Recorded Confirmed Type levothyroxine 88 mcg tablet 88 mcg PO DAILY 01/21/25 01/21/25 History apixaban 5 mg tablet (Eliquis) 5 mg PO BID 30 days #60 tabs 01/22/25 Rx metoprolol succinate 25 mg 12.5 mg (1/2 x 25 mg) PO QAM 30 01/22/25 Rx tablet,extended release 24 hr days #15 tabs Patient History Medical History Syncope Non-cardiac chest pain Hypothyroidism Family History Other No significant family history Social History Smoking Status: Never smoker Second Hand Exposure: No; Do You Dip or Chew Tobacco: No; Tobacco Cessation Education Requested by Patient: No Hx Alcohol Use: No Hx Substance Use: No Preferred Language: Palauan Communication Ability: 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 Beliefs That Will Affect Care: None marital status: Current Living Situation: Spouse Other Information That Helps Us Care for You: No Feels Safe at Home: Yes Safety Concerns: Feels Safe At This Time Assistive Devices: None Review of Systems Review of Systems: All systems reviewed & are unremarkable except as noted in HPI & below Physical Exam Constitutional: WD/WN, vitals as above no acute distress Neck: trachea midline, no thyromegaly Respiratory: normal respiratory effort Auscultation: lungs clear to auscultation bilaterally and + diminished lung sounds; no crackles and no rales Cardiovascular: Rate/Rhythm: regular rate and regular rhythm (intermittent ectopy ) Heart Sounds: normal S1 and normal S2; no murmur Vessels: no JVD Extremities: no edema Gastrointestinal (Abdomen): normal bowel sounds, soft, nontender, no hepatosplenomegaly Musculoskeletal: no cyanosis or clubbing, extremities motor strength 5/5 Neurologic: PERRL, EOMI, accommodation nl, no face palsy, no dysarthria Psychiatric: A+Ox3, euthymic affect Results & Data Vital Signs (Past 12 Hours) Vital Signs Temp Pulse Pulse Resp BP Pulse Ox O2 Del Method 01/24/25 07:18 36.7 C 67 16 100/70 97 Room Air 01/24/25 04:03 36.6 C 75 16 109/66 97 Room Air 01/24/25 04:00 59 L 01/24/25 02:00 76 01/23/25 23:33 41 L 01/23/25 23:30 41 L 01/23/25 23:04 36.9 C 74 18 100/64 97 Room Air 01/23/25 23:00 76 01/23/25 22:09 78 Laboratory Results Cardiac Enzymes 01/23/25 Range/Units 12:39 AST 18 (13-39) U/L Troponin I High Sens 3.5 (0-14) pg/ml Coagulation 01/23/25 Range/Units 12:39 APTT 30 (21-31) Seconds CBC 01/23/25 Range/Units 12:39 WBC 9.53 (4.8-10.8) K/ul RBC 3.94 L (4.20-5.40) M/uL Hgb 13.0 (12.0-16.0) g/dl Hct 38.9 (37.0-47.0) % Plt Count 278 (130-400) K/uL Neut # (Auto) 7.34 H (1.40-6.50) K/uL Lymph # (Auto) 1.39 (1.20-3.40) K/uL [place] # (Auto) 0.62 H (0.11-0.59) K/uL Eos # (Auto) 0.10 (0.00-0.50) K/uL Baso # (Auto) 0.05 (0.00-0.20) K/uL Comprehensive Metabolic Panel 01/23/25 01/24/25 Range/Units 12:39 07:49 Sodium 141 140 (136-145) mmol/L Potassium 4.0 3.9 (3.5-5.1) mmol/L Chloride 108 H 109 H (98-107) mmol/L Carbon Dioxide 24 25 (21-32) mmol/L BUN 9 12 (6-23) mg/dl Creatinine 0.55 L 0.54 L (0.6-1.2) mg/dl Glucose 84 93 (70-99(Fasting)) mg/dl Calcium 9.5 8.6 (8.6-10.3) mg/dl AST 18 (13-39) U/L ALT 10 (7-52) U/L Alkaline Phosphatase 78 (34-104) U/L Total Protein 7.3 (6.0-8.3) gm/dl Albumin 3.7 (3.4-5.0) gm/dl Intake and Output 01/23/25 01/24/25 01/24/25 22:59 06:59 14:59 Intake Total 1060 / 1260 200 / 1260 471 / 471 Balance 1060 / 1260 200 / 1260 471 / 471 Intake: IV 1000 / 1100 100 / 1100 471 / 471 Magnesium Sulfate / D5w 1 gm In 100 / 100 100 ml @ 50 mls/hr IV ONE ONE Rx#:[id number] Sodium Chloride 0.9% 1,000 ml @ 1000 / 1000 471 / 471 60 mls/hr IV .[id number] ONE Rx#: [id number] Oral 60 / 160 100 / 160 Other: # Unmeasured Voids 1 2 Weight 49.98 kg 52 kg Weight Measurement Method Built in Bedscale Built in Bedscale Diagnostic Findings Telemetry reviewed: Predominantly NSR with frequent PAC's. Short brief episodes of paroxysmal atrial flutter and paroxysmal atrial fibrillation. She had several strips of Sinus patito with blocked PAC's. EKG reviewed from this morning 01/24: NSR at 68 bmp with PAC QT/QTC 414/440 ms EKG reviewed from last night 01/23 at 22:33: NSR, normal EKG QT/QTC 402/421 ms echo completed last admission on 01/22: normal LVEF at 60-65% Normal wall motion and thickness Normal diastolic function no valvular disease Normal LA size Medications Administered Current Inpatient Medications Acetaminophen (Acetaminophen 325 Mg Tab) 650 mg PO Q4H PRN PRN Reason: Pain or Fever Stop: 02/22/25 20:21 Al Hydrox/Mg Hydrox/Simethicone (Aluminum/Magnesium Susp 30 Ml Udc) 15 ml PO Q4H PRN PRN Reason: Dyspepsia Stop: 02/22/25 20:21 Alprazolam (Alprazolam 0.25 Mg Tablet) 0.25 mg PO Q6H PRN PRN Reason: Anxiety Stop: 02/22/25 19:19 Apixaban (Apixaban 5 Mg Tablet) 5 mg PO BID EFREN Stop: 02/22/25 20:59 Last Admin: 01/24/25 08:11 Dose: 5 mg Atropine Sulfate (Atropine Sulfate 0.1 Mg/Ml 10ml Syr) 1 mg IV Q3M PRN PRN Reason: symptomatic bradycardia Levothyroxine Sodium (Levothyroxine Sodium 88 Mcg Tablet) 88 mcg PO DAILYBB EFREN Stop: 02/23/25 06:29 Last Admin: 01/24/25 06:00 Dose: 88 mcg Melatonin (Melatonin 3 Mg Tab) 3 mg PO HS PRN PRN Reason: Sleep Stop: 02/22/25 20:21 Polyethylene Glycol (Polyethylene (Miralax) 17 Gm Pack) 17 gm PO DAILY PRN PRN Reason: Constipation Stop: 02/22/25 20:21 Sotalol HCl (Sotalol Hcl 80 Mg Tab) 80 mg PO BID EFREN Stop: 02/23/25 20:59 PG Care Time/CCT Total # of Minutes Spent Total Time Spent with Patient: Total time spent is greater than 50% in coordination of care (as documented) at patient's floor/unit and/or counseling patient: 60 minutes Coding Level of Care Code 36038 IN/OBS CONSULT LVL 5,80M Diagnoses Paroxysmal atrial fibrillation I48.0 Typical atrial flutter I48.3 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
[2025-01-24 10:24] LABS: Magnesium 2.0 mg/dl (1.7-2.4)
--- NOTE | 2025-01-24 10:43 | Hospitalist Progress Note ---
Date of Service January 24, 2025 Assessment & Plan (1) Atrial flutter with rapid ventricular response: (2) Hypothyroidism: Plan -Patient 45-year-old female with known paroxysmal atrial flutter, presents to the ED with rapid ventricular response and hypotension. #Aflutter with RVR -Diagnosed 01/21, converted to NSR and discharged on 01/22 -TTE essentially normal -Discharged on toprol and eliquis -Went back into RVR on 01/23 -Started on sotalol in ED -Rate control options limited by hypotension Plan -Continue sotalol -Greatly appreciate cardio input -TSH is normal but will check FT4 -Cardiac monitoring -Continue eliquis for stroke prophylaxis -Will need OP EP eval #Hypothyroidism -Synthroid recently decreased to 88mcg by PCP -TSH is normal -Checking FT4 #Nathalie's Not on mediations #IBD -Follows with GI I spent a total of 55 minutes coordinating, documenting, and providing care for this patient excluding time spent in the performance of separately billed services. This included personally reviewing all current laboratories and imaging studies, medical reconciliation, outpatient chart review and discussion with specialists Admission and Anticipated Discharge Date Admission Date: January 23, 2025 Subjective Feeling well today. still with occasional palpitations. no other complaints. Physical Exam Physical Exam: Vitals and labs reviewed General: Well appearing, NAD HEENT: EOMI, PERRLA Neck: Supple Cardiac:regular rate. irregular rhythm. no murmurs rubs. Lungs: CTA no rhonchi wheezing or rales Abd: S NT ND BS positive : Deffered MSK: Full ROM. No obvious deformities Ext: No Edema cyanosis Skin: Warm, Dry Neuro: AOx3 No focal deficits. Psych: Normal Mood Results & Data Results & Data Vital Signs (Past 12 Hours) Vital Signs Temp Pulse Pulse Resp BP Pulse Ox O2 Del Method 01/24/25 09:07 67 01/24/25 07:18 36.7 C 67 16 100/70 97 Room Air 01/24/25 04:03 36.6 C 75 16 109/66 97 Room Air 01/24/25 04:00 59 L 01/24/25 02:00 76 01/23/25 23:33 41 L 01/23/25 23:30 41 L 01/23/25 23:04 36.9 C 74 18 100/64 97 Room Air 01/23/25 23:00 76 Laboratory Results Abnormal lab results 01/23/25 01/23/25 01/24/25 Range/Units 12:39 20:56 07:49 RBC 3.94 L (4.20-5.40) M/uL Neut # (Auto) 7.34 H (1.40-6.50) K/uL [place] # (Auto) 0.62 H (0.11-0.59) K/uL ESR 32 H (0-20) mm/hr Chloride 108 H 109 H (98-107) mmol/L Creatinine 0.55 L 0.54 L (0.6-1.2) mg/dl BUN/Creatinine Ratio 22.2 H (10-20) C-Reactive Protein 2.48 H (0-0.5) mg/dl Vitamin B12 938 H (180-914) pg/ml
[2025-01-24] MEDS: SOTALOL HCL 80 MG TAB PO ONE (10:46)
[2025-01-25 08:50] LABS: Anion Gap 7.0 (3-11); Blood Urea Nitrogen 12.0 mg/dl (6-23); Calcium 9.2 mg/dl (8.6-10.3); Carbon Dioxide 26.0 mmol/L (21-32); Chloride 107.0 mmol/L (98-107); Creatinine Clr Calc Pharmacy 92.0 ml/min; Glucose 87.0 mg/dl (70-99(Fasting)); Magnesium 1.8 mg/dl (1.7-2.4); Potassium 4.0 mmol/L (3.5-5.1); Sodium 140.0 mmol/L (136-145)
--- NOTE | 2025-01-25 09:37 | Cardiology Progress Note ---
<Statement entered by Kay Jordan DO - 01/25/25 12:57> I have reviewed the advanced practitioner's documentation and agree with the plan of care. I accept the responsibility for the associated risk. Pt seen in cardiology f/u due to recurrent symptomatic atrial flutter and possible brief pAF along with SB and non-conducted APCs. Pt is having less atrial arrhythmias on the sotalol; ECG looks good from this morning and QTc is stable. Reassured pt about the slower HR and she is not needing a pacemaker pt to get her 6th dose of sotalol tomorrow morning if QTc is stable she can be discharged home on eliquis 5mg BID and sotalol 80mg BID I discussed with her about a [employer] She already has a follow up with me the end of the month. Date of Service January 25, 2025 Assessment & Plan (1) Paroxysmal atrial fibrillation: (2) Typical atrial flutter: (3) Hypothyroidism: (4) Hypomagnesemia: Plan Patient is a 45 year old female with underlying thyroid disorder presented to [place] ER earlier this week and diagnosed with symptomatic atrial flutter. Ultimately placed on low dose metoprolol succinate 12.5 mg daily and Eliquis. She returned to the ER the following day with recurrent symptomatic PAF/Flutter. Re-admitted. Electrolytes supplemented. Lyme testing negative. She has mildly elevated ESR and CRP. She reports she has seen rheumatology in the past for autoimmune process. History of Xavi's thyroiditis, Alma's granulomatosis as well. Recently diagnosed with possible Crohn's disease. Echo earlier this week with preserved LVEF, no valvular disease. 01/24/25 Recommendations: Started on sotalol 40 mg BID - first dose last night 10 PM. Received second dose of 40 mg this morning, 01/24. She continues to have breakthrough afib/flutter lasting several minutes with associated symptoms this morning. EKG this morning after sotalol dose demonstrating NSR with stable QT/QTc measurements < 500. No significant bradycardia on telemetry Given additional sotalol 40 mg this morning to equal 80 mg, transitioning to 80 mg BID this evening. Repeat EKG 2 hours after additional dose this morning. Keep magnesium > 2.0. Keep potassium 4.0-5.0 Continue thyroid supplementation. Consider endocrine follow up. Continue on telemetry. Patient will need to remain in hospital on telemetry for 6 doses. Possible discharge Monday morning. Will need EP f/u as well (case previously discussed with Dr. Jordan) 01/25/25: Patient remains in NSR. No recurrent afib/flutter. EKG this morning demonstrating NSR with PAC's. Stable QT/QTc measurements, < 500 ms Continue sotalol to 80 mg twice daily. Daily ECG. Supplement magnesium - Goal > 2.0 - Add mag ox 400 mg daily Patient remained hospitalized/monitored for total of 6 doses of sotalol (Monday) Repeat EKG in AM Continue anticoagulation with apixaban Outpatient EP referral to consider flutter ablation. Further evaluation for infectious/inflammatory etiology of elevated ESR/CRP Urine culture pending Viral panel also ordered - not yet done Continue telemetry monitoring. Thyroid supplementation as per internal medicine. Case discussed with Dr. Jordan I spent a total of 30 minutes on the date of service in preparation, delivery, and documentation of the care provided to this patient, excluding any time spent in the performance of separately billed services. Sushma Sen PA-C Department of Cardiology, [facility] This chart was completed in part utilizing Speech Voice Recognition Software. Grammatical errors, random word insertions, pronoun errors, and incomplete sentences are an occasional consequence of this system due to software limitati ons, ambient noise, and hardware issues. Any formal questions or concerns about the content, text, or information contained within the body of this dictation should be directly addressed to the provider for clarification. Admission and Anticipated Discharge Date Admission Date: January 23, 2025 Subjective Patient resting in bed comfortably. Denies dizziness. Still has palpitations intermittently. No chest pain or SOB. ectopy noted on telemetry. No recurrent afib/flutter. Stable EKG findings. Review of Systems Review of Systems: All systems reviewed & are unremarkable except as noted in HPI & below Physical Exam Constitutional: WD/WN, vitals as above no acute distress Neck: trachea midline, no thyromegaly Respiratory: normal respiratory effort Auscultation: lungs clear to auscultation bilaterally and + diminished lung sounds; no crackles and no rales Cardiovascular: Rate/Rhythm: regular rate and regular rhythm (intermittent ectopy ) Heart Sounds: normal S1 and normal S2; no murmur Vessels: no JVD Extremities: no edema Gastrointestinal (Abdomen): normal bowel sounds, soft, nontender, no hepatosplenomegaly Musculoskeletal: no cyanosis or clubbing, extremities motor strength 5/5 Neurologic: PERRL, EOMI, accommodation nl, no face palsy, no dysarthria Psychiatric: A+Ox3, euthymic affect Results & Data Vital Signs (Past 12 Hours) Vital Signs Temp Pulse Pulse Pulse Resp BP Pulse Ox 01/25/25 07:26 36.7 C 77 16 95/62 L 95 01/25/25 03:17 36.7 C 62 16 93/54 L 97 01/25/25 00:17 40 L 01/25/25 00:17 60 01/24/25 23:17 36.9 C 68 18 102/61 97 O2 Del Method 01/25/25 07:26 Room Air 01/25/25 03:17 Room Air 01/25/25 00:17 01/25/25 00:17 01/24/25 23:17 Room Air Laboratory Results Comprehensive Metabolic Panel 01/25/25 Range/Units 07:52 Sodium 140 (136-145) mmol/L Potassium 4.0 (3.5-5.1) mmol/L Chloride 107 (98-107) mmol/L Carbon Dioxide 26 (21-32) mmol/L BUN 12 (6-23) mg/dl Creatinine 0.62 (0.6-1.2) mg/dl Glucose 87 (70-99(Fasting)) mg/dl Calcium 9.2 (8.6-10.3) mg/dl Intake and Output 01/24/25 01/25/25 01/25/25 22:59 06:59 14:59 Intake Total 300 / 771 Balance 300 / 771 Intake: Oral 300 / 300 Other: Other Intake Source Sips # Unmeasured Voids 1 1 Weight 49.8 kg Weight Measurement Method Built in [facility] Diagnostic Findings Telemetry reviewed: NSR with atrial ectopy, blocked PAC's. HR ranging 50-80's. No recurrent atrial fib/flutter. EKG reviewed from this morning 01/25: NSR with PAC's Non specific T wave abnormality improved in anterior leads QT/QTc 438/459 ms Medications Administered Current Inpatient Medications Acetaminophen (Acetaminophen 325 Mg Tab) 650 mg PO Q4H PRN PRN Reason: Pain or Fever Stop: 02/22/25 20:21 Al Hydrox/Mg Hydrox/Simethicone (Aluminum/Magnesium Susp 30 Ml Udc) 15 ml PO Q4H PRN PRN Reason: Dyspepsia Stop: 02/22/25 20:21 Alprazolam (Alprazolam 0.25 Mg Tablet) 0.25 mg PO Q6H PRN PRN Reason: Anxiety Stop: 02/22/25 19:19 Apixaban (Apixaban 5 Mg Tablet) 5 mg PO BID EFREN Stop: 02/22/25 20:59 Last Admin: 01/25/25 08:24 Dose: 5 mg Atropine Sulfate (Atropine Sulfate 0.1 Mg/Ml 10ml Syr) 1 mg IV Q3M PRN PRN Reason: symptomatic bradycardia Levothyroxine Sodium (Levothyroxine Sodium 88 Mcg Tablet) 88 mcg PO DAILYBB [facility] Stop: 02/23/25 06:29 Last Admin: 01/25/25 06:27 Dose: 88 mcg Melatonin (Melatonin 3 Mg Tab) 3 mg PO HS PRN PRN Reason: Sleep Stop: 02/22/25 20:21 Polyethylene Glycol (Polyethylene (Miralax) 17 Gm Pack) 17 gm PO DAILY PRN PRN Reason: Constipation Stop: 02/22/25 20:21 Sotalol HCl (Sotalol Hcl 80 Mg Tab) 80 mg PO BID [facility] Stop: 02/23/25 20:59 Last Admin: 01/25/25 09:31 Dose: 80 mg PG Care Time/CCT Total # of Minutes Spent Total Time Spent with Patient: Total time spent is greater than 50% in coordination of care (as documented) at patient's floor/unit and/or counseling patient: 30 minutes Coding Level of Care Code 08917 SUB INP/OBS CARE 3/50MIN Diagnoses Paroxysmal atrial fibrillation I48.0 Typical atrial flutter I48.3 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
--- NOTE | 2025-01-25 10:34 | Hospitalist Progress Note ---
Date of Service January 25, 2025 Assessment & Plan (1) Atrial flutter with rapid ventricular response: (2) Hypothyroidism: Plan -Patient 45-year-old female with known paroxysmal atrial flutter, presents to the ED with rapid ventricular response and hypotension. #Aflutter with RVR -Diagnosed 01/21, converted to NSR and discharged on 01/22 -TTE essentially normal -Discharged on toprol and eliquis -Went back into RVR on 01/23 -Started on sotalol in ED -Rate control options limited by hypotension -EKG reviewed, QTc 460 -Still having intermittent periods of symptomatic bradycardia Plan -Continue sotalol 80 BID -Greatly appreciate cardio input -Cardiac monitoring -Continue eliquis for stroke prophylaxis -Will need OP EP eval -Possibly DC home tomorrow if ok by cardio #Elevated inflammatory markers -These were checked in ED for unclear reasons -ESR mildly elevated at 32 and CRP mildly elevated at 2.4 -She has three autoimmune conditions which likely explains her elevated markers -She has been afebrile without leukocytosis -She has no urinary symptoms to suggest UTI. Urine culture was ordered but would not treat asymptomatic bacteriuria due to risks of abx -ROS unremarkable for infection #Hypothyroidism -Synthroid recently decreased to 88mcg by PCP -TSH and FT4 are normal #Nathalie's Not on mediations #IBD -Follows with GI I spent a total of 53 minutes coordinating, documenting, and providing care for this patient excluding time spent in the performance of separately billed services. This included personally reviewing all current laboratories and imaging studies, medical reconciliation, outpatient chart review and discussion with specialists Admission and Anticipated Discharge Date Admission Date: January 23, 2025 Subjective Overall feeling well this AM. she was bradycardic overnight. Patient denies F/C, CP, palpitations, SOB, dyspnea, abd pain, N/V/D dysuria polyuria Physical Exam Physical Exam: Vitals and labs reviewed General: Well appearing, NAD HEENT: EOMI, PERRLA Neck: Supple Cardiac:regular rate. irregular rhythm. no murmurs rubs. Lungs: CTA no rhonchi wheezing or rales Abd: S NT ND BS positive : Deffered MSK: Full ROM. No obvious deformities Ext: No Edema cyanosis Skin: Warm, Dry Neuro: AOx3 No focal deficits. Psych: Normal Mood Results & Data Results & Data Vital Signs (Past 12 Hours) Vital Signs Temp Pulse Pulse Pulse Resp BP Pulse Ox 01/25/25 07:26 36.7 C 77 16 95/62 L 95 01/25/25 03:17 36.7 C 62 16 93/54 L 97 01/25/25 00:17 40 L 01/25/25 00:17 60 01/24/25 23:17 36.9 C 68 18 102/61 97 O2 Del Method 01/25/25 07:26 Room Air 01/25/25 03:17 Room Air 01/25/25 00:17 01/25/25 00:17 01/24/25 23:17 Room Air (2) Hypothyroidism 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
[2025-01-25] MEDS: MAGNESIUM SULFATE / D5W 1 GM/100 ML BAG IV ONE (20:58)
[2025-01-25] MEDS: LACTATED RINGER'S 1,000 ML IV ONE (20:58)
[2025-01-26 02:58] VITALS: RESP 18
[2025-01-26 08:15] VITALS: O2SAT 95
--- NOTE | 2025-01-26 11:37 | Discharge Summary ---
Discharge Summary Date of Service January 26, 2025 Principal Dx & Hospital Course #1 = Principal Diagnosis (1) Atrial flutter with rapid ventricular response: (2) Hypothyroidism: Plan -Patient 45-year-old female with known paroxysmal atrial flutter, presents to the ED with rapid ventricular response and hypotension. She was discharged for new onset a flutter on 01/22. At that time she was started on toprol and eliquis. She returned the following day with palpitations and RVR. Cardio was consulted again and she was started on sotalol. She was monitored with serial EKGs to ensure QTc didn't prolong. During her stay, she had episodes of bradycardia. Today she is currently in sinus rhythm. Vitals and labs are stable. D/w barb Yañez for discharge today on sotalol 80 BID. She has an EP appt at the end of the month scheduled. #Aflutter with RVR -Diagnosed 01/21, converted to NSR and discharged on 01/22 -TTE essentially normal -Discharged on toprol and eliquis -Went back into RVR on 01/23 -Started on sotalol in ED -Rate control options limited by hypotension #Elevated inflammatory markers -These were checked in ED for unclear reasons -ESR mildly elevated at 32 and CRP mildly elevated at 2.4 -She has three autoimmune conditions which likely explains her elevated markers -She has been afebrile without leukocytosis -She has no urinary symptoms to suggest UTI. Urine culture was ordered but would not treat asymptomatic bacteriuria due to risks of abx -ROS unremarkable for infection #Hypothyroidism -Synthroid recently decreased to 88mcg by PCP -TSH and FT4 are normal -She was encouraged to f/u with her PCP and see an tax specialist as OP. #Nathalie's Not on mediations #IBD -Follows with GI I spent a total of 45 minutes coordinating, documenting, and providing care for this patient excluding time spent in the performance of separately billed services. This included personally reviewing all current laboratories and imaging studies, medical reconciliation, outpatient chart review and discussion with specialists Notes For Next Care Provider Medication Changes From Visit Toprol DC Sotalol added Admission HPI Per Admitting Provider Patient is a 45-year-old female who has known paroxysmal atrial flutter. She was just discharged from the hospital yesterday after having a episode of atrial flutter with rapid ventricular response. She converted to sinus rhythm, was started on metoprolol low-dose and Eliquis. At home today she noticed her heart rate was ranging from anywhere from 45-145 and also was noted to have low blood pressure. She came back to the emergency room for evaluation per her recommendations from cardiology at the time of discharge. In the emergency room initially she was in sinus rhythm. She had extensive workup all of which was relatively unremarkable. However, during her stay in the ER she did have some bouts of paroxysmal atrial flutter with RVR. She was quite symptomatic with this. She was also hypotensive. She would then quickly convert back to sinus rhythm. Cardiology was contacted in the ER. They were trying to coordinate outpatient EP evaluation for the patient exponentially. However as she was being discharged she again converted into atrial flutter with RVR. This time she remained in rapid ventricular response. She was also hypotensive. She was given IV fluid resuscitation and her blood pressure improved along with the heart rate. With these findings it is recommended that she be kept in the hospital for additional treatment and evaluation. Time of my evaluation the patient heart rate was right around 100. It was irregular. She denies any chest pain currently but did admit to some chest discomfort when she was having the rapid rates. Otherwise no other significant changes since her discharge yesterday. Discharge Exam Vitals and labs reviewed General: Well appearing, NAD Neck: Supple Cardiac: RRR no rubs gallops or murmurs Lungs: CTA no rhonchi wheezing or rales Abd: S NT ND BS positive : Deffered MSK: Full ROM. No obvious deformities Ext: No Edema cyanosis Skin: Warm, Dry Neuro: AOx3 No focal deficits. Psych: Normal Mood Updated Medication List Medication Instructions Recorded Confirmed Type levothyroxine 88 mcg tablet 88 mcg PO DAILY 01/21/25 01/25/25 History apixaban 5 mg tablet (Eliquis) 5 mg PO BID 30 days #60 tabs 01/22/25 01/25/25 Rx sotalol 80 mg tablet 80 mg PO BID 30 days #60 tabs 01/26/25 Rx Hospital Stay Data Consultations 01/23/25 18:26 ED Decision to Admit Stat 01/23/25 20:22 Consult Cardiology Routine Pending Results Patient Have Any Pending Studies at Discharge: No Discharge Instructions Given to Patient (Per Discharging Provider) Please follow up with Dr Jordan at your previously scheduled appt. Return to ED if your heart rate is consistently above 120 at rest. Total Time Total Time Spent Total Time Spent (In Minutes): 45
[2025-01-26 11:41] VITALS: BP 93/58; PULSE 57; TEMP 99.7
--- NOTE | 2025-01-26 12:41 | Cardiology Progress Note ---
<Statement entered by Kay Jordan DO - 01/26/25 21:44> I have reviewed the advanced practitioner's documentation and agree with the plan of care. I accept the responsibility for the associated risk. Pt with recurrent symptomatic pAF/flutter with RVR and underlying SB (not so symptomatic). She was started on sotalol and ECG after her 6th dose today looks good She is ok for discharge home on sotalol 80mg BID and eliquis i will see her in EP f/u as scheduled on 02/04 Date of Service January 26, 2025 Assessment & Plan (1) Paroxysmal atrial fibrillation: (2) Typical atrial flutter: (3) Hypothyroidism: (4) Hypomagnesemia: Plan Patient is a 45 year old female with underlying thyroid disorder presented to [place] ER earlier this week and diagnosed with symptomatic atrial flutter. Ultimately placed on low dose metoprolol succinate 12.5 mg daily and Eliquis. She returned to the ER the following day with recurrent symptomatic PAF/Flutter. Re-admitted. Electrolytes supplemented. Lyme testing negative. She has mildly elevated ESR and CRP. She reports she has seen rheumatology in the past for autoimmune process. History of Xavi's thyroiditis, Alma's granulomatosis as well. Recently diagnosed with possible Crohn's disease. Echo earlier this week with preserved LVEF, no valvular disease. 01/24/25 Recommendations: Started on sotalol 40 mg BID - first dose last night 10 PM. Received second dose of 40 mg this morning, 01/24. She continues to have breakthrough afib/flutter lasting several minutes with associated symptoms this morning. EKG this morning after sotalol dose demonstrating NSR with stable QT/QTc measurements < 500. No significant bradycardia on telemetry Given additional sotalol 40 mg this morning to equal 80 mg, transitioning to 80 mg BID this evening. Repeat EKG 2 hours after additional dose this morning. Keep magnesium > 2.0. Keep potassium 4.0-5.0 Continue thyroid supplementation. Consider endocrine follow up. Continue on telemetry. Patient will need to remain in hospital on telemetry for 6 doses. Possible discharge Monday morning. Will need EP f/u as well (case previously discussed with Dr. Jordan) 01/25/25: Patient remains in NSR. No recurrent afib/flutter. EKG this morning demonstrating NSR with PAC's. Stable QT/QTc measurements, < 500 ms Continue sotalol to 80 mg twice daily. Daily ECG. Supplement magnesium - Goal > 2.0 - Add mag ox 400 mg daily Patient remained hospitalized/monitored for total of 6 doses of sotalol (Monday morning) Repeat EKG in AM Continue anticoagulation with apixaban Outpatient EP referral to consider flutter ablation. Further evaluation for infectious/inflammatory etiology of elevated ESR/CRP Urine culture pending Continue telemetry monitoring. Thyroid supplementation as per internal medicine. 01/26/25: Remains in NSR. No recurrent afib/flutter Tolerating sotalol 80 mg BID. STable EKG measurements. No concerning tachy or bradycardia on telemetry. Borderline low BP at times, but this is her "normal". No symptoms. Encouraged hydration at home. Stable for discharge today on sotalol 80 mg BID and eliquis 5 mg BID Continue mag ox 400 mg dialy Urine culture is pending - defer to hospitalist to treat Throid supplementation per hospitalist. Consider f/u with rheumatology given elevated ESR/CRP and possible Crohns's disease. She already has an appt in 1-2 weeks with EP and will keep this appointment. No further cardiac testing warranted. Stable for discharge. Message sent to hospitalist. Case discussed with Dr. Jordan I spent a total of 30 minutes on the date of service in preparation, delivery, and documentation of the care provided to this patient, excluding any time spent in the performance of separately billed services. Sushma Sen PA-C Department of Cardiology, [facility] This chart was completed in part utilizing Speech Voice Recognition Software. Grammatical errors, random word insertions, pronoun errors, and incomplete sentences are an occasional consequence of this system due to software limitations, ambient noise, and hardware issues. Any formal questions or concerns about the content, text, or information contained within the body of this dictation should be directly addressed to the provider for clarification. Admission and Anticipated Discharge Date Admission Date: January 23, 2025 Subjective Patient resting in bed comfortably. She reports feeling better in regards to her palpitations since yesterday. No significant dizziness or lightheadedness. EKG today demonstrates normal sinus rhythm with stable QT QTc measurements less than 500. anxious for discharge. Review of Systems Review of Systems: All systems reviewed & are unremarkable except as noted in HPI & below Physical Exam Constitutional: WD/WN, vitals as above no acute distress Neck: trachea midline, no thyromegaly Respiratory: normal respiratory effort Auscultation: lungs clear to auscultation bilaterally and + diminished lung sounds; no crackles and no rales Cardiovascular: Rate/Rhythm: regular rate and regular rhythm (intermittent ectopy ) Heart Sounds: normal S1 and normal S2; no murmur Vessels: no JVD Extremities: no edema Gastrointestinal (Abdomen): normal bowel sounds, soft, nontender, no hepatosplenomegaly Musculoskeletal: no cyanosis or clubbing, extremities motor strength 5/5 Neurologic: PERRL, EOMI, accommodation nl, no face palsy, no dysarthria Psychiatric: A+Ox3, euthymic affect Results & Data Vital Signs (Past 12 Hours) Vital Signs Temp Pulse Pulse Resp BP BP Pulse Ox 01/26/25 11:43 64 57 L 18 93/58 L 92/52 L 95 01/26/25 11:27 37.6 C H 57 L 18 93/58 L 95 01/26/25 07:23 36.7 C 86 18 84/57 L 92/52 L 95 01/26/25 02:56 36.7 C 64 18 93/54 L 97 O2 Del Method 01/26/25 11:43 01/26/25 11:27 Room Air 01/26/25 07:23 Room Air 01/26/25 02:56 Room Air Laboratory Results Intake and Output 01/25/25 01/26/25 01/26/25 22:59 06:59 14:59 Intake Total 700 / 1000 300 / 1000 950 / 950 Balance 700 / 1000 300 / 1000 950 / 950 Intake: IV 100 / 100 950 / 950 Lactated Ringer's 1,000 ml @ 75 950 / 950 mls/hr IV .[id number] ONE Rx#: [id number] Magnesium Sulfate / D5w 1 gm In 100 / 100 100 ml @ 50 mls/hr IV ONE ONE Rx#:[id number] Oral 700 / 900 200 / 900 Other: # Unmeasured Voids 1 1 Weight 50.2 kg 50.2 kg Weight Measurement Method Built in [facility] Patient Weight 01/27/25 06:59 Weight 50.2 kg Diagnostic Findings Telemetry reviewed: Normal sinus rhythm ranging 50 to 70 bpm. Rare ectopy. Occasional blocked PAC. No significant bradycardia or tachyarrhythmias. 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
--- NOTE | 2025-01-26 19:42 | Electrocardiogram Report ---
Test Reason : Blood Pressure : */* mmHG Vent. Rate : 55 BPM Atrial Rate : 55 BPM P-R Int : 128 ms QRS Dur : 84 ms QT Int : 466 ms P-R-T Axes : 53 71 52 degrees QTcB Int : 445 ms Sinus bradycardia Otherwise normal ECG When compared with ECG of 25-Jan-2025 08:19, (unconfirmed) Premature ventricular complexes are no longer Present Premature atrial complexes are no longer Present Confirmed by Raymundo Babin ([id number]) on 01/26/2025 7:42:32 PM Referred By: REFERRED SELF Confirmed By: Raymundo Babin
--- NOTE | 2025-01-26 22:38 | Electrocardiogram Report ---
Test Reason : Blood Pressure : */* mmHG Vent. Rate : 66 BPM Atrial Rate : 50 BPM P-R Int : 146 ms QRS Dur : 82 ms QT Int : 408 ms P-R-T Axes : 58 80 67 degrees QTcB Int : 427 ms Sinus bradycardia with frequent Premature atrial complexes , some with aberrancy Abnormal ECG When compared with ECG of 25-Jan-2025 05:29, (unconfirmed) Aberrant conduction is now Present Confirmed by Raymundo Babin ([id number]) on 01/26/2025 10:37:49 PM Referred By: REFERRED SELF Confirmed By: Raymundo Babin
--- NOTE | 2025-01-26 22:41 | Electrocardiogram Report ---
Test Reason : Blood Pressure : */* mmHG Vent. Rate : 66 BPM Atrial Rate : 66 BPM P-R Int : 132 ms QRS Dur : 80 ms QT Int : 438 ms P-R-T Axes : 49 69 47 degrees QTcB Int : 459 ms Sinus rhythm with Premature atrial complexes Low voltage QRS Borderline ECG When compared with ECG of 24-Jan-2025 12:57, (unconfirmed) Nonspecific T wave abnormality, improved in Anterior leads Confirmed by Raymundo Babin ([id number]) on 01/26/2025 10:40:58 PM Referred By: REFERRED SELF Confirmed By: Raymundo Babin
--- NOTE | 2025-01-26 23:06 | Electrocardiogram Report ---
Test Reason : Blood Pressure : */* mmHG Vent. Rate : 68 BPM Atrial Rate : 68 BPM P-R Int : 128 ms QRS Dur : 84 ms QT Int : 428 ms P-R-T Axes : 67 68 37 degrees QTcB Int : 455 ms Sinus rhythm with Premature atrial complexes with Aberrant conduction Cannot rule out Anterior infarct , age undetermined Abnormal ECG When compared with ECG of 24-Jan-2025 09:41, (unconfirmed) Nonspecific T wave abnormality, worse in Anterior leads Confirmed by Raymundo Babin ([id number]) on 01/26/2025 11:06:18 PM Referred By: REFERRED SELF Confirmed By: Raymundo Babin
--- NOTE | 2025-01-26 23:16 | Electrocardiogram Report ---
Test Reason : Blood Pressure : */* mmHG Vent. Rate : 68 BPM Atrial Rate : 68 BPM P-R Int : 122 ms QRS Dur : 82 ms QT Int : 414 ms P-R-T Axes : 54 73 52 degrees QTcB Int : 440 ms Sinus rhythm with Premature atrial complexes Otherwise normal ECG When compared with ECG of 23-Jan-2025 22:33, (unconfirmed) Premature atrial complexes are now Present Confirmed by Raymundo Babin ([id number]) on 01/26/2025 11:16:44 PM Referred By: REFERRED SELF Confirmed By: Raymundo Babin
--- NOTE | 2025-01-26 23:43 | Electrocardiogram Report ---
Test Reason : Blood Pressure : */* mmHG Vent. Rate : 66 BPM Atrial Rate : 66 BPM P-R Int : 118 ms QRS Dur : 88 ms QT Int : 402 ms P-R-T Axes : 57 82 44 degrees QTcB Int : 421 ms Normal sinus rhythm Normal ECG When compared with ECG of 23-Jan-2025 20:00, (unconfirmed) Premature supraventricular complexes are no longer Present Confirmed by Raymundo Babin ([id number]) on 01/26/2025 11:42:42 PM Referred By: REFERRED SELF Confirmed By: Raymundo Babin
--- NOTE | 2025-01-26 23:48 | Electrocardiogram Report ---
Test Reason : Blood Pressure : */* mmHG Vent. Rate : 84 BPM Atrial Rate : 84 BPM P-R Int : 130 ms QRS Dur : 70 ms QT Int : 388 ms P-R-T Axes : 63 60 39 degrees QTcB Int : 458 ms Sinus rhythm with Premature supraventricular complexes Otherwise normal ECG When compared with ECG of 23-Jan-2025 12:16, (unconfirmed) No significant change was found Confirmed by Raymundo Babin ([id number]) on 01/26/2025 11:48:27 PM Referred By: REFERRED SELF Confirmed By: Raymundo Babin
--- NOTE | 2025-01-27 04:49 | Electrocardiogram Report ---
Test Reason : Blood Pressure : */* mmHG Vent. Rate : 80 BPM Atrial Rate : 80 BPM P-R Int : 128 ms QRS Dur : 70 ms QT Int : 364 ms P-R-T Axes : 67 73 54 degrees QTcB Int : 419 ms Sinus rhythm with Premature atrial complexes Septal infarct , age undetermined Otherwise normal ECG When compared with ECG of 22-Jan-2025 05:22, (unconfirmed) Premature atrial complexes are now Present Septal infarct is now Present Confirmed by Raymundo Babin ([id number]) on 01/27/2025 4:49:07 AM Referred By: REFERRED SELF Confirmed By: Raymundo Babin
== END 2025-01-26 12:28 | disposition home or self-care (01) | DRG 309 ==
LOC: ED 12:02 → 2S 19:02 → SUATTDRO 19:07 → 2S 20:23

== ENCOUNTER 2025-03-30 13:34 | Observation (INO) ==
--- NOTE | 2025-03-30 14:23 | XRay Report ---
COMPARISON: 01/21/2025 FINDINGS: HEART: Normal in size. LUNGS: No focal consolidation, pleural effusion, or vascular congestion. MEEDIASTINUM: Unremarkable. BONES: Intact. OTHER: Unremarkable. IMPRESSION: No acute disease. Electronically signed by Keri Wen 03-30-2025 2:23 PM
[2025-03-30] MEDS: SODIUM CHLORIDE 0.9% 1,000 ML IV ONE (14:29)
--- NOTE | 2025-03-30 14:33 | Emergency Department Note ---
Impression & Plan Tachycardia, Bradycardia, History of atrial flutter ED Provider Note NAME: KALIA ARELLANO AGE: 45 SEX: F : 1980 ARRIVES VIA: Walk-In INFORMANT: Patient ED PROVIDER(S): Angel Lenz MD CHIEF COMPLAINT: Tachycardia, dizziness PLAN: Disposition: Admit MEDICAL DECISION MAKING: The patient is a pleasant 45-year-old woman with a past medical history of atrial flutter on sotalol and Eliquis who presents to the emergency department via walk-in accompanied by her for evaluation of episodes of fast heart rates in the 130s where she feels lightheaded. Patient reports the episodes began yesterday morning and eventually resolved after orally hydrating with electrolyte. She reports that similar episode occurred this morning which again she attempted to treat with hydration but as was the case yesterday her rate took an abnormal amount of time to respond than usual. Thus she presents to Emergency Department for evaluation. Patient adds that over the past week she has been having intermittent headaches with ringing in her ears which she has not had before. She also adds that she sees a functional doctor who had ordered numerous blood tests for which she had a blood drawn on Monday where she feels there was a large amount of blood drawn. She reports since then her heart rate has been up and down. She has any fevers, chills, cough congestion. She denies any vomiting or diarrhea. She denies urinary symptoms. On evaluation the patient is anxious appearing but no acute distress, afebrile with heart rate in triage in the 50s and isolated episodes of heart rate in the upper 30s which would resolve spontaneously. Patient appears clinically dry. She exhibits no focal neurologic deficits. Initial EKG demonstrates sinus rhythm with frequent PVCs and PACs with a rate of [address] elevation or depression, QTc 442, QRS 76. WBC, H/H and platelets within normal limits. Chemistry without metabolic acidosis. BUN/creatinine 26 consistent with patient's clinical dry appearance. LFTs unremarkable. High-sensitivity troponin 3.5, within normal limits. TSH within normal limits. hCG negative. Upon evaluation the patient did report feeling improved following IV fluid hydration. Ectopy significantly improved/resolved. EKG after IV fluid hydration did demonstrate reduced ectopy with normal sinus rhythm, 64 bpm, no overt ST elevation or depression and QTc 451 and QRS 76. Given the patient's history of atrial flutter on sotalol with heart rates fluctuating from tachycardia to bradycardia patient agreed with plan for admission for further observation. Case [facility] will [facility] the patient for admission. Further management per admitting team. Triage Nursing notes reviewed and agree them. Prior/external medical records reviewed Vital Signs: reviewed Differential diagnosis: Premature contractions, electrolyte abnormality, cardiac dysrhythmia, thyroid dysfunction, pulmonary embolism, infection, gastrointestinal, as well as other pathologies. ER treatment provided: See below. Diagnostics interpreted by me: ECG: Sinus rhythm with frequent PVCs and PACs with a rate of 85 bpm ECG: normal sinus rhythm, 64 bpm, no overt ST elevation or depression and QTc 451 and QRS 76. Cardiac Monitoring: An order for continuous cardiac monitoring was placed and demonstrated sinus rhythm with frequent PVCs and PACs, 85 bpm. Laboratory studies: See below Imaging studies: See below Consultation(s): Jairo Perez, with [facility] HPI: Per MDM. ROS: See above HPI for pertinent positives & negatives. A total of 10 systems reviewed and were otherwise negative. VITALS:See Below PHYSICAL EXAMINATION: GENERAL: Awake, alert, anxious-appearing, in no distress HENT: Normocephalic, atraumatic. Oropharynx with dry mucous membranes and otherwise unremarkable. EYES: Normal conjunctiva. Sclera non-icteric. EOMI. No nystamgus. PEARRL. NECK: Supple. No nuchal rigidity. FROM. No JVD. RESPIRATORY: Clear to auscultation. CARDIAC: Regular rate, normal rhythm. Extremities warm and well perfused. Pulses equal. ABDOMEN: Soft, non-distended. No tenderness to palpation. No rebound or guarding. No masses. MUSCULOSKELETAL: Chest examination reveals no tenderness. The back is symmetrical on inspection without obvious abnormality. There is no CVA tenderness to palpation. No joint edema. LOWER EXTREMITIES: Calves are equal size bilaterally and non-tender. No edema. No discoloration. NEURO: Cranial nerves II-XII grossly intact. 5/5 strength and SILT x 4 extremities. Cerebellar function intact including [id number], alternating palms, [id number]. SKIN: No rash or jaundice noted. Angel Lenz MD Past Med/Surg History Problem List Symptomatic PVCs Tachy-patito syndrome History of atrial flutter (Acute) Bradycardia (Acute) Tachycardia (Acute) Hypomagnesemia Typical atrial flutter Paroxysmal atrial fibrillation Atrial flutter with rapid ventricular response (Acute) Cough (Acute) Cough (Acute) Seasonal allergies (Acute) Syncope (Acute) Medical History Syncope Non-cardiac chest pain Hypothyroidism Family History Other No significant family history Social History Smoking Status: Never smoker Second Hand Exposure: No; Do You Dip or Chew Tobacco: No; Hx Alcohol Use: No Hx Substance Use: No Preferred Language: Amharic Communication Ability: Effective Job Forwarder Required: No Beliefs That Will Affect Care: None marital status: Current Living Situation: Spouse Feels Safe at Home: Yes Assistive Devices: None Allergies Allergies Allergy/AdvReac Type Severity Reaction Status Date / Time Penicillins Allergy Severe FULL BODY Verified 03/30/25 16:05 RASH Sulfa (Sulfonamide Allergy Severe ANAPHYLAXIS Verified 03/30/25 16:05 Antibiotics) amoxicillin Allergy Intermediate rash Verified 03/30/25 16:05 Macrolide Antibiotics Allergy Intermediate rash Verified 03/30/25 16:05 nitrofurantoin Allergy Unknown CAN'T Verified 01/21/25 22:17 REMEMBER troleandomycin Allergy Rash Verified 03/30/25 16:07 hydromorphone AdvReac Intermediate Pt states Verified 01/21/25 22:17 muscles in neck&all over become tight and painful mesalamine AdvReac Intermediate multiple Verified 03/30/25 16:05 side effects Home Meds Home Medications Medication Instructions Recorded Confirmed levothyroxine 88 mcg tablet 88 mcg PO DAILYBB 01/21/25 03/30/25 apixaban 5 mg tablet (Eliquis) 5 mg PO AMHS 03/30/25 03/30/25 multivitamin 1 tab PO QAM 03/30/25 03/30/25 sotalol 80 mg tablet 80 mg PO AMHS 03/30/25 03/30/25 Results & Data (ED) Vital Signs Vital Signs - 24 hr 03/30/25 13:35 03/30/25 13:35 03/30/25 13:43 Temperature 36.6 C Temperature Source Temporal Artery Scan Pulse Rate 52 L Respiratory Rate 18 19 Blood Pressure 107/72 Blood Pressure Mean 83 Pulse Oximetry 99 97 Oxygen Delivery Method Room Air Room Air Sepsis Recent Fever Within 48 Hours No Sepsis New/Unexplained Change in Mental Status N/A Sepsis Action Taken by Nursing No Action Required 03/30/25 14:16 Temperature Temperature Source Pulse Rate 89 Respiratory Rate Blood Pressure Blood Pressure Mean Pulse Oximetry Oxygen Delivery Method Sepsis Recent Fever Within 48 Hours Sepsis New/Unexplained Change in Mental Status Sepsis Action Taken by Nursing Laboratory Data Attestation: I reviewed the patient's lab results. 03/30/25 14:33 03/30/25 14:33 Lab Results 03/30/25 Range/Units 14:33 WBC 10.17 (4.8-10.8) K/ul RBC 3.77 L (4.20-5.40) M/uL Hgb 12.5 (12.0-16.0) g/dL Hct 37.0 (37.0-47.0) % MCV 98.1 (80.0-100.0) fL MCH 33.2 (25.0-34.0) pg MCHC 33.8 (32.0-36.0) g/dL RDW Std Deviation 46.2 (36.4-46.3) fL RDW Coeff of Mishel 12.9 (11.5-14.5) % Plt Count 303 (130-400) K/uL MPV 10.6 (9.4-12.4) fL Immature Gran % (Auto) 0.4 % Neut % (Auto) 77.6 % Lymph % (Auto) 13.0 % [place] % (Auto) 7.8 % Eos % (Auto) 0.8 % Baso % (Auto) 0.4 % Neut # (Auto) 7.90 H (1.40-6.50) K/uL Lymph # (Auto) 1.32 (1.20-3.40) K/uL [place] # (Auto) 0.79 H (0.11-0.59) K/uL Eos # (Auto) 0.08 (0.00-0.50) K/uL Baso # (Auto) 0.04 (0.00-0.20) K/uL Immature Gran # (Auto) 0.04 (0.01-0.20) K/uL PT 11.5 (9.0-12.0) Seconds INR 1.1 (0.9-1.1) Sodium 137 (136-145) mmol/L Potassium 4.0 (3.5-5.1) mmol/L Chloride 108 H (98-107) mmol/L Carbon Dioxide 24 (21-32) mmol/L Anion Gap 5 (3-11) BUN 15 (6-23) mg/dl Creatinine 0.56 L (0.6-1.2) mg/dl Est Cr Clr Drug Dosing 107.8 ml/min eGFR 116.06 BUN/Creatinine Ratio 26.8 H (10-20) Glucose 91 (70-99(Fasting)) mg/dl Calcium 9.3 (8.6-10.3) mg/dl Magnesium 2.0 (1.7-2.4) mg/dl Total Bilirubin 0.7 (0.2-1.0) mg/dl AST 11 L (13-39) U/L ALT 7 (7-52) U/L Alkaline Phosphatase 73 (34-104) U/L Troponin I High Sens 3.5 (0-14) pg/ml Total Protein 7.0 (6.0-8.3) gm/dl Albumin 3.5 (3.4-5.0) gm/dl Globulin 3.5 (2.5-4.0) gm/dl Albumin/Globulin Ratio 1.0 (0.9-2) Lipase 20 (11-82) U/L TSH 0.847 (0.300-4.500) uIu/ml HCG, Qual Negative (Negative) Administered Medications Discontinued Medications Acetaminophen (Acetaminophen 325 Mg Tab) 650 mg PO Q4H PRN PRN Reason: Pain or Fever Stop: 04/29/25 20:40 Last Admin: 03/31/25 19:32 Dose: 650 mg Documented By: KIRK Apixaban (Apixaban 5 Mg Tablet) 5 mg PO AMHS EFREN Stop: 04/29/25 20:59 Last Admin: 04/01/25 09:16 Dose: 5 mg Documented By: dst Admin: 03/31/25 21:35 Dose: 5 mg Documented By: Admin: 03/31/25 08:46 Dose: 5 mg Documented By: cl Admin: 03/30/25 21:10 Dose: 5 mg Documented By: KIRK Sodium Chloride (Nss) 1,000 mls @ 999 mls/hr IV .[id number] ONE Stop: 03/30/25 14:45 Last Infusion: 03/30/25 19:23 Dose: Infused Documented By: [email or web address] Admin: 03/30/25 14:29 Dose: 999 mls/hr Documented By: GAURANG Sodium Chloride (Nss) 1,000 mls @ 80 mls/hr IV .[id number] EFREN Stop: 04/02/25 18:29 Last Admin: 04/01/25 09:17 Dose: 80 mls/hr Documented By: noreen Infusion: 04/01/25 09:17 Dose: Infused Documented By: noreen Admin: 03/31/25 21:35 Dose: 80 mls/hr Documented By: Infusion: 03/31/25 21:18 Dose: Infused Documented By: Admin: 03/31/25 08:48 Dose: 80 mls/hr Documented By: cl Infusion: 03/31/25 07:07 Dose: Infused Documented By: cl Admin: 03/30/25 18:37 Dose: 80 mls/hr Documented By: moses Levothyroxine Sodium (Levothyroxine Sodium 88 Mcg Tablet) 88 mcg PO DAILYBB [facility] Stop: 04/30/25 06:29 Last Admin: 04/01/25 06:18 Dose: 88 mcg Documented By: Admin: 03/31/25 05:38 Dose: 88 mcg Documented By: KIRK Multivitamins (Multivitamin Tab) 1 tab PO QAM [facility] Stop: 04/30/25 08:59 Last Admin: 04/01/25 09:16 Dose: 1 tab Documented By: noreen Admin: 03/31/25 08:46 Dose: Not Given Documented By: cl Sotalol HCl (Sotalol Hcl 80 Mg Tab) 80 mg PO AMHS [facility] Stop: 04/29/25 20:59 Last Admin: 04/01/25 09:16 Dose: 80 mg Documented By: noreen Admin: 03/31/25 21:35 Dose: 80 mg Documented By: Admin: 03/31/25 08:46 Dose: 80 mg Documented By: dlf Admin: 03/30/25 21:09 Dose: 80 mg Documented By: CEW Imaging Data Radiologist's Impression: Chest X-Ray 03/30/25 13:43 COMPARISON: 01/21/2025 FINDINGS: HEART: Normal in size. LUNGS: No focal consolidation, pleural effusion, or vascular congestion. MEEDIASTINUM: Unremarkable. BONES: Intact. OTHER: Unremarkable. IMPRESSION: No acute disease. Electronically signed by Keri Wen 03-30-2025 2:23 PM Discharge Plan Visit Data Chief Complaint: Cardiac Assessment Stated Complaint: ELEVATED HEART RATE, ON BLOOD THINNERS ED Provider: Angel Lenz ED Midlevel Provider: Chante Moran Discharge Problem: Tachycardia, Bradycardia, History of atrial flutter Patient Disposition: Admitted As Inpatient Condition: Fair Discharge Instructions Interventions: ED Discharge Assessment Last Done: 03/30/25 20:25
[2025-03-30 14:44] LABS: Hematocrit (blood only) 37.0 % (37.0-47.0); Hemoglobin 12.5 g/dL (12.0-16.0); Immature Granulocytes # (auto) 0.04 K/uL (0.01-0.20); Immature Granulocytes % (auto) 0.4 %; Mean Corpuscular Hemoglobin 33.2 pg (25.0-34.0); Mean Corpuscular Volume 98.1 fL (80.0-100.0); Platelet Count 303 K/uL (130-400); RDW Standard Deviation 46.2 fL (36.4-46.3); Red Blood Count 3.77 M/uL (4.20-5.40); White Blood Count 10.17 K/ul (4.8-10.8)
[2025-03-30 15:04] LABS: Alanine Aminotransferase 7.0 U/L (7-52); Albumin Globulin Ratio 1.0 (0.9-2); Albumin Level 3.5 gm/dl (3.4-5.0); Alkaline Phosphatase 73.0 U/L (34-104); Anion Gap 5.0 (3-11); Bilirubin,Total 0.7 mg/dl (0.2-1.0); Blood Urea Nitrogen 15.0 mg/dl (6-23); Calcium 9.3 mg/dl (8.6-10.3); Carbon Dioxide 24.0 mmol/L (21-32); Chloride 108.0 mmol/L (98-107); Creatinine Clr Calc Pharmacy 107.8 ml/min; Globulin 3.5 gm/dl (2.5-4.0); Glucose 91.0 mg/dl (70-99(Fasting)); Lipase 20.0 U/L (11-82); Magnesium 2.0 mg/dl (1.7-2.4); Potassium 4.0 mmol/L (3.5-5.1); Sodium 137.0 mmol/L (136-145); Total Protein 7.0 gm/dl (6.0-8.3)
[2025-03-30 15:06] LABS: Pregnancy Test, Serum Negative (Negative)
[2025-03-30 15:20] LABS: Thyroid Stimulating Hormone 0.847 uIu/ml (0.300-4.500)
[2025-03-30 15:42] LABS: INR 1.1 (0.9-1.1); Prothrombin Time 11.5 Seconds (9.0-12.0)
--- NOTE | 2025-03-30 17:02 | History & Physical Report ---
Date of Service March 30, 2025 Assessment & Plan (1) Tachy-patito syndrome: (2) Paroxysmal atrial fibrillation: (3) Hypothyroidism: Plan Patient is a 45 year old female with a past medical history of hypothyroidism, atrial flutter with RVR on sotalol who presents to the ED with complaint of tachycardia and headache. Follows functional medicine outpatient and had large amount of blood drawn with workup 2 days ago. Following the blood draw, she felt excessively tired. Yesterday morning her heart rate was in the 130's, she rehydrated herself with fluids and electrolytes with yesterday with improvement. She feels her symptoms relate to having blood drawn as this has happened before. Also endorses a headache x 1 week that "bounces around" her head and is sharp. When her heart rate is elevated, she hears a buzzing with the headache. Today, she felt lightheaded when changing position from the ground to standing; no falls or chest pain associated with these events. Denies illnesses, fever, chills, shortness of breath, chest pain, swelling, blood in urine or stool. Hi story Alma granulomatosis and follows Rheumatology [facility]. #Tachy-patito syndrome #Hx Paroxysmal AFib/Flutter Admit for observation Med tele Presenting with tachycardia, fatigue, headache x 1 day following extensive blood work OP without evidence anemia here Recent hospitalization [facility] 01/23/25- 01/26/25 for RVR and hypotension, initially managed on low dose metoprolol with return of symptomatic PAF/Flutter; now on sotalol with EP outpatient follow up. Echo workup from last admission with preserved LVEF, no valvular disease. Fluid resuscitation in ED; HR's stabilized and normotensive; will give NSS maintenance fluids Will need overnight tele observation Continue home sotalol Daily EKG Follow lytes; keep Mag >2 may need IV supplementation, patient not tolerating oral mag supplem d/t GI issues #Headache and Tinnitus Sharp headache with tinnitus, poss associated with tachycardia; history of wegeners and follows [facility] diagnosed 2019 has been on prednisone and methotrexate x [address] head for tinnitus workup; patient refused #Hypothyroidism Euthyroid on lab workup Continue home levothyroxine DVT Ppx: on Eliquis; Teds Code status: Full PCP: Dr. Daily Dispo: Admit Patient seen in collaboration with Dr. Villegas. Please see addendum.I spent a total of 60 minutes coordinating, documenting and providing care for this patient excluding time spent in the performance of separately billed services or time spent by another provider/QHP. History of Present Illness Primary Care Provider: Jn Cuevas MD Patient is a 45 year old female with a past medical history of hypothyroidism, atrial flutter with RVR on sotalol who presents to the ED with complaint of tachycardia and headache. Follows functional medicine outpatient and had large amount of blood drawn with workup 2 days ago. Following the blood draw, she felt excessively tired. Yesterday morning her heart rate was in the 130's, she rehydrated herself with fluids and electrolytes with yesterday with improvement. She feels her symptoms relate to having blood drawn as this has happened before. Also endorses a headache x 1 week that "bounces around" her head and is sharp. When her heart rate is elevated, she hears a buzzing with the headache. Today, she felt lightheaded when changing position from the ground to standing; no falls or chest pain associated with these events. Denies illnesses, fever, chills, shortness of breath, chest pain, swelling, blood in urine or stool. Denies fever, chills, weight loss, weakness, cognitive changes, vision changes, chest pain, SOB, swelling, difficulty breathing, urinary concerns, N/V/D, joint swelling/pain, ambulation difficulty, skin rashes, lesions, bleeding, bruising. Recent confinement at [facility] 01/23/25- 01/26/25 for rapid ventricular response and hypotension and was initially managed on low dose metoprolol with return of symptomatic PAF/Flutter. She was then started on sotalol with EP follow up outpatient. Echo workup from last admission with preserved LVEF, no valvular disease. History of alma's granulomatosis and follows rheumatology. Also with possible Crohn's disease. In the ED, patient was hemodynamically stable with an unremarkable lab workup. Mag stable. No evidence of anemia with Hgb 12.5. Was initially tachycardic on the way to the hospital today, but then heart rate stabilized once here in ED. In triage, her heart rate dropped to 54 and at some points, heart rate was even lower to the 30's. EKG showing sinus rhythm with PVCs, rate 85 bpm, QTc 442. Euthyroid on lab workup. Chest Xray without evidence of acute disease. Given 1L NSS in ED. NSR on the monitor with heart rate 63-70 on my read with a blood pressure 107/72 following. Discussed with ED provider labs, HPI, management in the ED and reason for additional observation for bradycardia. History obtained primarily from the patient and via hospitalization record. The patient's was at the bedside and assisted with history of present illness. External chart review obtained from [facility]. Allergies Allergy/AdvReac Type Severity Reaction Status Date / Time Penicillins Allergy Severe FULL BODY Verified 03/30/25 16:05 RASH Sulfa (Sulfonamide Allergy Severe ANAPHYLAXIS Verified 03/30/25 16:05 Antibiotics) amoxicillin Allergy Intermediate rash Verified 03/30/25 16:05 Macrolide Antibiotics Allergy Intermediate rash Verified 03/30/25 16:05 nitrofurantoin Allergy Unknown CAN'T Verified 01/21/25 22:17 REMEMBER troleandomycin Allergy Rash Verified 03/30/25 16:07 hydromorphone AdvReac Intermediate Pt states Verified 01/21/25 22:17 muscles in neck&all over become tight and painful mesalamine AdvReac Intermediate multiple Verified 03/30/25 16:05 side effects Home Medications Medication Instructions Recorded Confirmed Type levothyroxine 88 mcg tablet 88 mcg PO DAILYBB 01/21/25 03/30/25 History apixaban 5 mg tablet (Eliquis) 5 mg PO AMHS 03/30/25 03/30/25 History multivitamin 1 tab PO QAM 03/30/25 03/30/25 History sotalol 80 mg tablet 80 mg PO AMHS 03/30/25 03/30/25 History Past Med/Surg History Problem List (Updated 03/30/25 @ 17:50 by KG Camargo) Tachy-patito syndrome History of atrial flutter (Acute) Bradycardia (Acute) Tachycardia (Acute) Hypomagnesemia Typical atrial flutter Paroxysmal atrial fibrillation Atrial flutter with rapid ventricular response (Acute) Cough (Acute) Cough (Acute) Seasonal allergies (Acute) Syncope (Acute) Medical History Syncope Non-cardiac chest pain Hypothyroidism Family History Other No significant family history Social History Smoking Status: Never smoker Second Hand Exposure: No; Do You Dip or Chew Tobacco: No; Hx Alcohol Use: No Hx Substance Use: No Preferred Language: Khmer Communication Ability: Effective 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 WEIGHT/BMI reviewed. GEN: Healthy appearing, well-developed, NAD. PSYCH: Good Judgment. AOx3. Normal memory, mood, and affect. HEENT -Head: NC/AT; -Eyes: PERRL, EOMI. No discharge or redn ess; -Ears: External ears are normal. -Nose: Normal nares. -Mouth and throat: MMM. Normal gums, muc charles, palate,. Good dentition. NECK: Supple, with no masses. CV: RRR, no m/r/g. LUNGS: CTAB, no w/r/c. ABD: Soft, NT/ND, NBS, no masses or organomegaly. : N/A SKIN: Warm, well perfused. No skin rashes or abnormal lesions. MSK: No deformities, Normal gait. EXT: No clubbing, cyanosis, or edema. NEURO: CN II-XII grossly intact. No focal deficits. Results & Data Results & Data Vital Signs (Past 12 Hours) Vital Signs Temp Pulse Resp BP Pulse Ox O2 Del Method 03/30/25 14:16 89 03/30/25 13:43 19 97 Room Air 03/30/25 13:35 Room Air 03/30/25 13:35 36.6 C 52 L 18 107/72 99 Laboratory Results Short CBC 03/30/25 Range/Units 14:33 WBC 10.17 (4.8-10.8) K/ul Hgb 12.5 (12.0-16.0) g/dL Hct 37.0 (37.0-47.0) % Plt Count 303 (130-400) K/uL BMP 03/30/25 14:33 Sodium 137 Potassium 4.0 Chloride 108 H Carbon Dioxide 24 BUN 15 Creatinine 0.56 L Glucose 91 Calcium 9.3 Liver Function 03/30/25 Range/Units 14:33 Total Bilirubin 0.7 (0.2-1.0) mg/dl AST 11 L (13-39) U/L ALT 7 (7-52) U/L Alkaline Phosphatase 73 (34-104) U/L Albumin 3.5 (3.4-5.0) gm/dl Diagnostic Findings Chest X-Ray 03/30/25 13:43 COMPARISON: 01/21/2025 FINDINGS: HEART: Normal in size. LUNGS: No focal consolidation, pleural effusion, or vascular congestion. MEEDIASTINUM: Unremarkable. BONES: Intact. OTHER: Unremarkable. IMPRESSION: No acute disease. Electronically signed by Keri Wen 03-30-2025 2:23 PM Supervising Physician Co-Signing Physician Notes Patient seen and examined at bedside. Concerns regarding palpitations and fast HRs at home. Gets bradycardic as well. Has been having headaches and episodes of tinnitus that sound pulsatile (related to blood flow). On exam, RRR, telemetry showing tachy-patito syndrome. No leukocytosis, c reatinine at baseline. Presentation consistent with concern for tachy-patito syndrome in setting of known atrial flutter. Check Mg, keep K>4, Mg>2. Telemetry observation overnight. Check TSH. Cardiology consult, appreciate recs. Of note, discussed tinnitus at length, given concern for on and off nature of tinnitus, and description appearing to sound like pulsatile tinnitus. Offered brain imaging given hx of vasculitis in past per chart review, patient declined imaging at this time and declines further discussion of tinnitus due to anxiety. Patient likely needs imaging on outpatient basis given pulsatile tinnitus, as differential does include aneurysm or AV malformation, which was explained to the patient. I have seen and discussed the case with the collaborating advanced practitioner. I agree with the above H&P. I have reviewed and confirmed the patients medical history, the findings on physical examination, and the patients diagnosis and treatment plan with Mony SAUL and agree with the information documented. I spent a total of 20 minutes coordinating, documenting, and providing care for this patient excluding time spent in the performance of separately billed s ervices. All of the aforementioned completed outside of collaborating with the assigned advanced practitioner for a full treatment plan. 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
[2025-03-30] MEDS: SODIUM CHLORIDE 0.9% 1,000 ML IV SCH (18:37)
[2025-03-30] MEDS ORDERED: ALUMINUM/MAGNESIUM SUSP 30 ML UDC PO PRN (20:41)
[2025-03-30] MEDS ORDERED: ONDANSETRON INJ 2 MG/ML 2 ML VIAL IV PRN (20:41)
[2025-03-30] MEDS: SOTALOL HCL 80 MG TAB PO SCH (21:09)
[2025-03-30] MEDS: APIXABAN 5 MG TABLET PO SCH (21:10)
[2025-03-31] MEDS: LEVOTHYROXINE SODIUM 88 MCG TABLET PO SCH (05:38)
[2025-03-31] MEDS: MULTIVITAMIN TAB PO SCH (08:46)
--- NOTE | 2025-03-31 14:15 | Electrocardiogram Report ---
Test Reason : Blood Pressure : */* mmHG Vent. Rate : 64 BPM Atrial Rate : 64 BPM P-R Int : 124 ms QRS Dur : 76 ms QT Int : 438 ms P-R-T Axes : 48 66 38 degrees QTcB Int : 451 ms Normal sinus rhythm Normal ECG When compared with ECG of 30-Mar-2025 13:46, (unconfirmed) Premature ventricular complexes are no longer Present Premature atrial complexes are no longer Present Confirmed by Angelito Keyes ([id number]) on 03/31/2025 2:14:45 PM Referred By: REFERRED SELF Confirmed By: Angelito Keyes
--- NOTE | 2025-03-31 14:28 | Electrocardiogram Report ---
Test Reason : Blood Pressure : */* mmHG Vent. Rate : 53 BPM Atrial Rate : 53 BPM P-R Int : 132 ms QRS Dur : 72 ms QT Int : 452 ms P-R-T Axes : 49 70 60 degrees QTcB Int : 424 ms Sinus bradycardia Low voltage QRS Borderline ECG When compared with ECG of 30-Mar-2025 16:07, (unconfirmed) No significant change was found Confirmed by Angelito Keyes ([id number]) on 03/31/2025 2:28:11 PM Referred By: REFERRED SELF Confirmed By: Angelito Keyes
--- NOTE | 2025-03-31 14:32 | Electrocardiogram Report ---
Test Reason : Blood Pressure : */* mmHG Vent. Rate : 85 BPM Atrial Rate : 85 BPM P-R Int : 124 ms QRS Dur : 76 ms QT Int : 372 ms P-R-T Axes : 10 55 24 degrees QTcB Int : 442 ms Sinus rhythm with frequent Premature ventricular complexes and Premature atrial complexes Low voltage QRS Borderline ECG When compared with ECG of 26-Jan-2025 05:21, Premature ventricular complexes are now Present Premature atrial complexes are now Present Vent. rate has increased by 30 bpm Confirmed by Angelito Keyes ([id number]) on 03/31/2025 2:31:53 PM Referred By: REFERRED SELF Confirmed By: Angelito Keyes
--- NOTE | 2025-03-31 14:40 | Hospitalist Progress Note ---
Date of Service March 31, 2025 Assessment & Plan (1) Tachy-patito syndrome: (2) Paroxysmal atrial fibrillation: (3) Hypothyroidism: Plan Patient is a 45 year old female with a past medical history of hypothyroidism, atrial flutter with RVR on sotalol who presents to the ED with complaint of tachycardia and headache. Follows functional medicine outpatient and had large amount of blood drawn with workup 2 days ago. Following the blood draw, she felt excessively tired. Yesterday morning her heart rate was in the 130's, she rehydrated herself with fluids and electrolytes with yesterday with improvement. She feels her symptoms relate to having blood drawn as this has happened before. Also endorses a headache x 1 week that "bounces around" her head and is sharp. When her heart rate is elevated, she hears a buzzing with the headache. Today, she felt lightheaded when changing position from the ground to standing; no falls or chest pain associated with these events. Denies illnesses, fever, chills, shortness of breath, chest pain, swelling, blood in urine or stool. Hi story Alma granulomatosis and follows Rheumatology [facility]. #Tachy-patito syndrome #Hx Paroxysmal AFib/Flutter Admit for observation Med tele Presenting with tachycardia, fatigue, headache x 1 day following extensive blood work OP without evidence anemia here Recent hospitalization [facility] 01/23/25- 01/26/25 for RVR and hypotension, initially managed on low dose metoprolol with return of symptomatic PAF/Flutter; now on sotalol with EP outpatient follow up. Echo workup from last admission with preserved LVEF, no valvular disease. Fluid resuscitation in ED; HR's stabilized and normotensive; will give NSS maintenance fluids Will need overnight tele observation Continue home sotalol-has been getting it regularly and did not miss a dose Follow lytes; keep Mag >2 may need IV supplementation, patient not tolerating oral mag supplem d/t GI issues Remains stable and complains to have minimal sinus pressure and ear pressure without any palpitation or chest symptoms Awaiting cardiology evaluation before discharge #Headache and Tinnitus Sharp headache with tinnitus, poss associated with tachycardia; history of wegeners and follows [facility] diagnosed 2019 has been on prednisone and methotrexate x [address] head for tinnitus workup; patient refused No definitive sinusitis but she complains to have sinus pressure with noted painwill not give any antibiotic #Hypothyroidism Euthyroid on lab workup Continue home levothyroxine DVT Ppx: on Eliquis; Teds Code status: Full PCP: Dr. Daily Dispo: Admit I spent total of 57 minutes seeing the patient, examining her, going to the chart and investigations, planning of care In discussion with the specialist. Admission and Anticipated Discharge Date Admission Date: March 30, 2025 Subjective 03/31/2025 The patient was seen and examined in telemetry unit She has been complaining of sinus pressure and popping sound in the ears associated with palpitation No chest pain, no dizziness with ambulation, no nausea and/or vomiting Noted to have transient significant bradycardia with heart rate as low as 30s without symptoms as per the nurse Review of Systems 2 Review of Systems: All systems reviewed and are unremarkable except as noted below Physical Exam Physical Exam: Lying in bed without any acute distress but looked very anxious Constitutional: + ill appearing and + thin Eyes: PERRL, conjunctivae normal, anicteric sclerae ENMT: external ear and nose normal, oropharynx normal Neck: trachea midline, no thyromegaly Respiratory: no respiratory distress Auscultation: lungs clear to auscultation bilaterally Cardiovascular: Rate/Rhythm: regular rate, regular rhythm and + bradycardic Heart Sounds: normal S1 and normal S2; no murmur Extremities: no edema Gastrointestinal (Abdomen): Inspection/Auscultation: normal bowel sounds; abdomen not distended Percussion/Palpation: abdomen soft; abdomen nontender Musculoskeletal: No acute arthritis involving any of the joint Neurologic: normal touch/pain/proprioception and moves all extremities; no focal motor deficits Lymphatic: no cervical or axillary lymphadenopathy Results & Data Results & Data Vital Signs (Past 12 Hours) Vital Signs Temp Pulse Pulse Resp BP Pulse Ox O2 Del Method 03/31/25 13:24 36.9 C 56 L 19 91/53 L 96 Room Air 03/31/25 09:00 57 L 03/31/25 07:37 36.9 C 63 19 97/58 L 97 Room Air 03/31/25 03:49 36.8 C 67 16 93/55 L 96 Room Air Laboratory Results Short CBC 03/30/25 Range/Units 14:33 WBC 10.17 (4.8-10.8) K/ul Hgb 12.5 (12.0-16.0) g/dL Hct 37.0 (37.0-47.0) % Plt Count 303 (130-400) K/uL BMP 03/30/25 14:33 Sodium 137 Potassium 4.0 Chloride 108 H Carbon Dioxide 24 BUN 15 Creatinine 0.56 L Glucose 91 Calcium 9.3 Liver Function 03/30/25 Range/Units 14:33 Total Bilirubin 0.7 (0.2-1.0) mg/dl AST 11 L (13-39) U/L ALT 7 (7-52) U/L Alkaline Phosphatase 73 (34-104) U/L Albumin 3.5 (3.4-5.0) gm/dl Medications Administered Current Inpatient Medications Acetaminophen (Acetaminophen 325 Mg Tab) 650 mg PO Q4H PRN PRN Reason: Pain or Fever Stop: 04/29/25 20:40 Al Hydrox/Mg Hydrox/Simethicone (Aluminum/Magnesium Susp 30 Ml Udc) 15 ml PO Q4H PRN PRN Reason: Dyspepsia Stop: 04/29/25 20:40 Apixaban (Apixaban 5 Mg Tablet) 5 mg PO AMHS [facility] Stop: 04/29/25 20:59 Last Admin: 03/31/25 08:46 Dose: 5 mg Sodium Chloride (Nss) 1,000 mls @ 80 mls/hr IV .[id number] [facility] Stop: 04/02/25 18:29 Last Admin: 03/31/25 08:48 Dose: 80 mls/hr Levothyroxine Sodium (Levothyroxine Sodium 88 Mcg Tablet) 88 mcg PO DAILYBB [facility] Stop: 04/30/25 06:29 Last Admin: 03/31/25 05:38 Dose: 88 mcg Multivitamins (Multivitamin Tab) 1 tab PO QAM [facility] Stop: 04/30/25 08:59 Last Admin: 03/31/25 08:46 Dose: Not Given Ondansetron HCl (Ondansetron Inj 2 Mg/Ml 2 Ml Vial) 4 mg IV Q6H PRN PRN Reason: Nausea Stop: 04/29/25 20:40 Sotalol HCl (Sotalol Hcl 80 Mg Tab) 80 mg PO AMHS [facility] Stop: 04/29/25 20:59 Last Admin: 03/31/25 08:46 Dose: 80 mg Current (3) Hypothyroidism 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
--- NOTE | 2025-03-31 15:15 | Cardiology Consultation ---
Date of Consultation March 31, 2025 Assessment & Plan (1) Symptomatic PVCs: (2) History of atrial flutter: (3) Paroxysmal atrial fibrillation: Plan - Patient presented to [facility] ED 03/30/25 with rapid heart rates likely related to symptomatic episodes of atrial fib/flutter that resolved by patients admission. - Patient admitted with telemetry monitoring which reveals symptomatic PVCs. - Repeat BMP and Mg (Keep Mg >2.0 and K >4.0) - Discussed case with patient's EP physician, Dr. Jordan. Recommend continuing [employer] Sotalol 80 mg BID and Eliquis 5 mg BID. - Will arrange for outpatient EP follow up to discuss possible ablation. - Defer sinus congestion/pressure to hospitalist - Further recommendations pending discussion and evaluation with Dr. Gill. I spent a total of 60 minutes on the date of service in preparation, delivery, and documentation of the care provided to this patient, excluding any time spent in the performance of separately billed services. Kayleigh Kumar PA-C Department of Cardiology, [facility] This chart was completed in part utilizing Speech Voice Recognition Software. Grammatical errors, random word insertions, pronoun errors, and incomplete sentences are an occasional consequence of this system due to software limitations, ambient noise, and hardware issues. Any formal questions or concerns about the content, text, or information contained within the body of this dictation should be directly addressed to the provider for clarification. Supervising Physician Co-Signing Physician Notes Patient seen and examined. Past medical history, surgical history, social history and family history have been reviewed. The medical record and all the above studies have been reviewed. Case DW WARREN including management. Patient showed that she takes an electrolyte drink mix daily with the packet stating a combination of 1000mg Na, 200mg K, 60mg Mg - which she takes daily PAFib Symptomatic PVCs Hypothyroidism Headache and Tinnitus Recommendations: advised to not take supplements including the packet described above. advised to increase po fluid intake continue Sotalol as per EP F/U with EP as OP History of Present Illness Reason for Consultation: paroxysmal Afib Requesting Physician: Jairo Hospitalist Attending Physician: Dr. Gill History of Present Illness Kiara Chavez is a 45 year old female with a PMHx of paroxysmal atrial fib/flutter found 12/2024 started on sotalol and Eliquis, Chron's disease, and hypothyroidism who presented to [facility] ED 03/30/25 due to rapid heart rates. She states she felt her heart racing earlier in the day and used her Kardia[employer] device which reported rates in the 120s-140s. She states she then drank water and electrolytes which seemed to resolve her symptoms for some time. Symptoms ret urned sometime later and her Kardia[employer] device reported rates in the 120s. She states these symptoms were persistent which promoted her to come be evaluated in the ED. ED evaluation found she was in sinus rhythm with frequent PVCs and PACs. ED noted her heart rate was fluctuating from tachycardic to bradycardic into the 30s, so patient was admitted for observation. She was recently hospitalized from 01/23-01/26/25 for atrial fibrillation with RVR. She has been taking Sotalol 80 mg BID and Eliquis 5 mg BID and states she has been feeling good since her previous hospitalization. Today, patient is feeling better. She states she has had episodes of feeling her heart "skips a beat" but states it no longer feels like it is racing. She has concerns about her heart rate since the monitor is reporting them in the 30s. She also reports feeling fluttering in her right ear that started a few weeks ago, stating it "sounds like a butterfly". She does note some associated sinus pressure. She is currently drinking an electrolyte packet mixed with water which she does routinely at home. She states she has not been able to tolerate other forms of electrolyte supplements. Telemetry monitoring reveals sinus rhythm with occasional PACs, PVCs, and episodes of ventricular bigeminy. Patient appears to be symptomatic with PVCs and ventricular bigeminy. She denies chest pain, SOB/ACOSTA, dizziness/lightheadedness, edema, AGOSTO, vision changes, syncope. Allergies Allergy/AdvReac Type Severity Reaction Status Date / Time Penicillins Allergy Severe FULL BODY Verified 03/30/25 16:05 RASH Sulfa (Sulfonamide Allergy Severe ANAPHYLAXIS Verified 03/30/25 16:05 Antibiotics) amoxicillin Allergy Intermediate rash Verified 03/30/25 16:05 Macrolide Antibiotics Allergy Intermediate rash Verified 03/30/25 16:05 nitrofurantoin Allergy Unknown CAN'T Verified 01/21/25 22:17 REMEMBER troleandomycin Allergy Rash Verified 03/30/25 16:07 hydromorphone AdvReac Intermediate Pt states Verified 01/21/25 22:17 muscles in neck&all over become tight and painful mesalamine AdvReac Intermediate multiple Verified 03/30/25 16:05 side effects Home Medications Medication Instructions Recorded Confirmed Type levothyroxine 88 mcg tablet 88 mcg PO DAILYBB 01/21/25 03/30/25 History apixaban 5 mg tablet (Eliquis) 5 mg PO AMHS 03/30/25 03/30/25 History multivitamin 1 tab PO QAM 03/30/25 03/30/25 History sotalol 80 mg tablet 80 mg PO AMHS 03/30/25 03/30/25 History Patient History Medical History Syncope Non-cardiac chest pain Hypothyroidism Family History Other No significant family history Social History Smoking Status: Never smoker Second Hand Exposure: No; Do You Dip or Chew Tobacco: No; Hx Alcohol Use: No Hx Substance Use: No Preferred Language: Turkmen Communication Ability: Effective Photograph Inspector Required: No Beliefs That Will Affect Care: None marital status: Current Living Situation: Spouse Other Information That Helps Us Care for You: No Feels Safe at Home: Yes Safety Concerns: Feels Safe At This Time Assistive Devices: None Review of Systems Review of Systems: All systems reviewed & are unremarkable except as noted in HPI & below Physical Exam Constitutional: WD/WN, vitals as above Neck: trachea midline, no thyromegaly Respiratory: normal respiratory effort, lungs clear to auscultation Cardiovascular: RRR, no murmur, no edema Neurologic: PERRL, EOMI, accommodation nl, no face palsy, no dysarthria Psychiatric: Mood: + anxious mood Results & Data Vital Signs (Past 12 Hours) Vital Signs Temp Pulse Pulse Resp BP Pulse Ox O2 Del Method 03/31/25 15:00 59 L 03/31/25 13:24 36.9 C 56 L 19 91/53 L 96 Room Air 03/31/25 09:00 57 L 03/31/25 07:37 36.9 C 63 19 97/58 L 97 Room Air 03/31/25 03:49 36.8 C 67 16 93/55 L 96 Room Air Laboratory Results Intake and Output 03/31/25 03/31/25 03/31/25 06:59 14:59 22:59 Intake Total 150 / 1275 1000 / 1000 Balance 150 / 1275 1000 / 1000 Intake: IV 1000 / 1000 Sodium Chloride 0.9% 1,000 ml @ 1000 / 1000 80 mls/hr IV .[id number] [facility] Rx#: [id number] Oral 150 / 275 Other: Weight 51.9 kg Weight Measurement Method Standing Scale Laboratory Results WBC 10.17 K/ul (4.8-10.8) 03/30/25 14:33 RBC 3.77 M/uL (4.20-5.40) L 03/30/25 14:33 Hgb 12.5 g/dL (12.0-16.0) 03/30/25 14:33 Hct 37.0 % (37.0-47.0) 03/30/25 14:33 MCV 98.1 fL (80.0-100.0) 03/30/25 14:33 MCH 33.2 pg (25.0-34.0) 03/30/25 14:33 MCHC 33.8 g/dL (32.0-36.0) 03/30/25 14:33 RDW Std Deviation 46.2 fL (36.4-46.3) 03/30/25 14:33 RDW Coeff of Mishel 12.9 % (11.5-14.5) 03/30/25 14:33 Plt Count 303 K/uL (130-400) 03/30/25 14:33 MPV 10.6 fL (9.4-12.4) 03/30/25 14:33 Immature Gran % (Auto) 0.4 % 03/30/25 14:33 Neut % (Auto) 77.6 % 03/30/25 14:33 Lymph % (Auto) 13.0 % 03/30/25 14:33 [place] % (Auto) 7.8 % 03/30/25 14:33 Eos % (Auto) 0.8 % 03/30/25 14:33 Baso % (Auto) 0.4 % 03/30/25 14:33 Neut # (Auto) 7.90 K/uL (1.40-6.50) H 03/30/25 14:33 Lymph # (Auto) 1.32 K/uL (1.20-3.40) 03/30/25 14:33 [place] # (Auto) 0.79 K/uL (0.11-0.59) H 03/30/25 14:33 Eos # (Auto) 0.08 K/uL (0.00-0.50) 03/30/25 14:33 Baso # (Auto) 0.04 K/uL (0.00-0.20) 03/30/25 14:33 Immature Gran # (Auto) 0.04 K/uL (0.01-0.20) 03/30/25 14:33 PT 11.5 Seconds (9.0-12.0) 03/30/25 14:33 INR 1.1 (0.9-1.1) 03/30/25 14:33 Sodium 137 mmol/L (136-145) 03/30/25 14:33 Potassium 4.0 mmol/L (3.5-5.1) 03/30/25 14:33 Chloride 108 mmol/L (98-107) H 03/30/25 14:33 Carbon Dioxide 24 mmol/L (21-32) 03/30/25 14:33 Anion Gap 5 (3-11) 03/30/25 14:33 BUN 15 mg/dl (6-23) 03/30/25 14:33 Creatinine 0.56 mg/dl (0.6-1.2) L 03/30/25 14:33 Est Cr Clr Drug Dosing 107.8 ml/min 03/30/25 14:33 eGFR 116.06 03/30/25 14:33 BUN/Creatinine Ratio 26.8 (10-20) H 03/30/25 14:33 Glucose 91 mg/dl (70-99(Fasting)) 03/30/25 14:33 Calcium 9.3 mg/dl (8.6-10.3) 03/30/25 14:33 Magnesium 2.0 mg/dl (1.7-2.4) 03/30/25 14:33 Total Bilirubin 0.7 mg/dl (0.2-1.0) 03/30/25 14:33 AST 11 U/L (13-39) L 03/30/25 14:33 ALT 7 U/L (7-52) 03/30/25 14:33 Alkaline Phosphatase 73 U/L (34-104) 03/30/25 14:33 Troponin I High Sens 3.5 pg/ml (0-14) 03/30/25 14:33 Total Protein 7.0 gm/dl (6.0-8.3) 03/30/25 14:33 Albumin 3.5 gm/dl (3.4-5.0) 03/30/25 14:33 Globulin 3.5 gm/dl (2.5-4.0) 03/30/25 14:33 Albumin/Globulin Ratio 1.0 (0.9-2) 03/30/25 14:33 Lipase 20 U/L (11-82) 03/30/25 14:33 TSH 0.847 uIu/ml (0.300-4.500) 03/30/25 14:33 HCG, Qual Negative (Negative) 03/30/25 14:33 Impressions Chest X-Ray 03/30/25 13:43 COMPARISON: 01/21/2025 FINDINGS: HEART: Normal in size. LUNGS: No focal consolidation, pleural effusion, or vascular congestion. MEEDIASTINUM: Unremarkable. BONES: Intact. OTHER: Unremarkable. IMPRESSION: No acute disease. Electronically signed by Keri Wen 03-30-2025 2:23 PM Diagnostic Findings Telemetry Monitoring Sinus rhythm 50-60 bpm with frequent occasional PACs, PVCs, and episodes of ventricular bigeminy. EKG 03/30/25 Sinus rhythm with frequent PVCs and PACs Low voltage QRS 85 bpm EKG 03/30/25 NSR, 64 bpm EKG 03/30/25 Sinus bradycardia, 53 bpm Low voltage QRS Echocardiogram 01/22/25 The left ventricle is normal in size There is normal left ventricular wall thickness The left ventricular wall motion is normal. LVEF = 60-65% Diastolic function is normal. There is no significant valvular disease The left atrial size is normal Medications Administered Current Inpatient Medications Acetaminophen (Acetaminophen 325 Mg Tab) 650 mg PO Q4H PRN PRN Reason: Pain or Fever Stop: 04/29/25 20:40 Al Hydrox/Mg Hydrox/Simethicone (Aluminum/Magnesium Susp 30 Ml Udc) 15 ml PO Q4H PRN PRN Reason: Dyspepsia Stop: 04/29/25 20:40 Apixaban (Apixaban 5 Mg Tablet) 5 mg PO AMHS [facility] Stop: 04/29/25 20:59 Last Admin: 03/31/25 08:46 Dose: 5 mg Sodium Chloride (Nss) 1,000 mls @ 80 mls/hr IV .[id number] [facility] Stop: 04/02/25 18:29 Last Admin: 03/31/25 08:48 Dose: 80 mls/hr Levothyroxine Sodium (Levothyroxine Sodium 88 Mcg Tablet) 88 mcg PO DAILYBB [facility] Stop: 04/30/25 06:29 Last Admin: 03/31/25 05:38 Dose: 88 mcg Multivitamins (Multivitamin Tab) 1 tab PO QAM [facility] Stop: 04/30/25 08:59 Last Admin: 03/31/25 08:46 Dose: Not Given Ondansetron HCl (Ondansetron Inj 2 Mg/Ml 2 Ml Vial) 4 mg IV Q6H PRN PRN Reason: Nausea Stop: 04/29/25 20:40 Sotalol HCl (Sotalol Hcl 80 Mg Tab) 80 mg PO AMHS [facility] Stop: 04/29/25 20:59 Last Admin: 03/31/25 08:46 Dose: 80 mg PG Care Time/CCT Total # of Minutes Spent Total Time Spent with Patient: Total time spent is greater than 50% in coordination of care (as documented) at patient's floor/unit and/or counseling patient: Coding Level of Care Code 55952 IN/OBS CONSULT LVL 5,80M Diagnoses Symptomatic PVCs I49.3 History of atrial flutter Z86.79 Paroxysmal atrial fibrillation I48.0
[2025-03-31] MEDS: ACETAMINOPHEN 325 MG TAB PO PRN (19:32)
[2025-04-01 07:36] VITALS: O2SAT 96
--- NOTE | 2025-04-01 12:06 | Hospitalist Progress Note ---
Date of Service April 01, 2025 Assessment & Plan (1) Tachy-patito syndrome: (2) Paroxysmal atrial fibrillation: (3) Hypothyroidism: Plan Patient is a 45 year old female with a past medical history of hypothyroidism, atrial flutter with RVR on sotalol who presents to the ED with complaint of tachycardia and headache. Follows functional medicine outpatient and had large amount of blood drawn with workup 2 days ago. Following the blood draw, she felt excessively tired. Yesterday morning her heart rate was in the 130's, she rehydrated herself with fluids and electrolytes with yesterday with improvement. She feels her symptoms relate to having blood drawn as this has happened before. Also endorses a headache x 1 week that "bounces around" her head and is sharp. When her heart rate is elevated, she hears a buzzing with the headache. Today, she felt lightheaded when changing position from the ground to standing; no falls or chest pain associated with these events. Denies illnesses, fever, chills, shortness of breath, chest pain, swelling, blood in urine or stool. 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 #Tachy-patito syndrome #Hx Paroxysmal AFib/Flutter Admit for observation Med tele Presenting with tachycardia, fatigue, headache x 1 day following extensive blood work OP without evidence anemia here Recent hospitalization [facility] 01/23/25- 01/26/25 for RVR and hypotension, initially managed on low dose metoprolol with return of symptomatic PAF/Flutter; now on sotalol with EP outpatient follow up. Echo workup from last admission with preserved LVEF, no valvular disease. Fluid resuscitation in ED; HR's stabilized and normotensive; will give NSS maintenance fluids Will need overnight tele observation Continue home sotalol-has been getting it regularly and did not miss a dose Follow lytes; keep Mag >2 may need IV supplementation, patient not tolerating oral mag supplem d/t GI issues Remains stable and complains to have minimal sinus pressure and ear pressure without any palpitation or chest symptoms Appreciate cardiology input and recommendation She remains stable without any significant bradycardia or bradycardia arrhythmia She refused to have any blood test and she mentioned that she has been feeling much better and wants to be discharged She will be discharged home this afternoon #Headache and Tinnitus Sharp headache with tinnitus, poss associated with tachycardia; history of wegeners and follows [facility] diagnosed 2019 has been on prednisone and methotrexate x [address] head for tinnitus workup; patient refused No definitive sinusitis but she complains to have sinus pressure with noted painwill not give any antibiotic #Hypothyroidism Euthyroid on lab workup Continue home levothyroxine DVT Ppx: on Eliquis; Teds Code status: Full PCP: Dr. Daily Dispo: Admit I spent total of 35 minutes seeing the patient, examining her, going to the chart and investigations, planning of care In discussion with the specialist. Admission and Anticipated Discharge Date Admission Date: March 30, 2025 Subjective 03/31/2025 The patient was seen and examined in telemetry unit She has been complaining of sinus pressure and popping sound in the ears associated with palpitation No chest pain, no dizziness with ambulation, no nausea and/or vomiting Noted to have transient significant bradycardia with heart rate as low as 30s without symptoms as per the nurse 04/01/2025 The patient was seen and examined in telemetry unit She has been feeling a lot better and wants to be discharged She does not have any more palpitation and has been ambulating in the room without any difficulties She did not want to go for any blood test Review of Systems Review of Systems: All systems reviewed and are unremarkable except as noted below Physical Exam Physical Exam: Lying in bed without any acute distress but looked very anxious Constitutional: + ill appearing and + thin Eyes: PERRL, conjunctivae normal, anicteric sclerae ENMT: external ear and nose normal, oropharynx normal Neck: trachea midline, no thyromegaly Respiratory: no respiratory distress Auscultation: lungs clear to auscultation bilaterally Cardiovascular: Rate/Rhythm: regular rate, regular rhythm and + bradycardic Heart Sounds: normal S1 and normal S2; no murmur Extremities: no edema Gastrointestinal (Abdomen): Inspection/Auscultation: normal bowel sounds; abdomen not distended Percussion/Palpation: abdomen soft; abdomen nontender Neurologic: normal touch/pain/proprioception and moves all extremities; no focal motor deficits Lymphatic: no cervical or axillary lymphadenopathy Results & Data Results & Data Vital Signs (Past 12 Hours) Vital Signs Temp Pulse Pulse Resp BP Pulse Ox O2 Del Method 04/01/25 07:56 64 04/01/25 07:53 Room Air 04/01/25 07:35 36.7 C 59 L 19 103/66 96 Room Air 04/01/25 03:26 36.7 C 60 18 90/54 L 97 Room Air Medications Administered Current Inpatient Medications Acetaminophen (Acetaminophen 325 Mg Tab) 650 mg PO Q4H PRN PRN Reason: Pain or Fever Stop: 04/29/25 20:40 Last Admin: 03/31/25 19:32 Dose: 650 mg Al Hydrox/Mg Hydrox/Simethicone (Aluminum/Magnesium Susp 30 Ml Udc) 15 ml PO Q4H PRN PRN Reason: Dyspepsia Stop: 04/29/25 20:40 Apixaban (Apixaban 5 Mg Tablet) 5 mg PO AMHS [facility] Stop: 04/29/25 20:59 Last Admin: 04/01/25 09:16 Dose: 5 mg Sodium Chloride (Nss) 1,000 mls @ 80 mls/hr IV .[id number] [facility] Stop: 04/02/25 18:29 Last Admin: 04/01/25 09:17 Dose: 80 mls/hr Levothyroxine Sodium (Levothyroxine Sodium 88 Mcg Tablet) 88 mcg PO DAILYBB [facility] Stop: 04/30/25 06:29 Last Admin: 04/01/25 06:18 Dose: 88 mcg Multivitamins (Multivitamin Tab) 1 tab PO QAM [facility] Stop: 04/30/25 08:59 Last Admin: 04/01/25 09:16 Dose: 1 tab Ondansetron HCl (Ondansetron Inj 2 Mg/Ml 2 Ml Vial) 4 mg IV Q6H PRN PRN Reason: Nausea Stop: 04/29/25 20:40 Sotalol HCl (Sotalol Hcl 80 Mg Tab) 80 mg PO AMHS [facility] Stop: 04/29/25 20:59 Last Admin: 04/01/25 09:16 Dose: 80 mg (3) Hypothyroidism 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
[2025-04-01 12:20] VITALS: BP 93/54; PULSE 58; RESP 18; TEMP 98.6
--- NOTE | 2025-04-01 12:48 | Cardiology Progress Note ---
Date of Service April 01, 2025 Assessment & Plan (1) Symptomatic PVCs: (2) History of atrial flutter: (3) Paroxysmal atrial fibrillation: Plan Patient showed that she takes an electrolyte drink mix daily with the packet stating a combination of 1000mg Na, 200mg K, 60mg Mg - which she takes daily PAFib Symptomatic PVCs Hypothyroidism Headache and Tinnitus Recommendations: advised to not take supplements including the packet described above. advised to increase po fluid intake Discussed case with patient's EP physician, Dr. Jordan. Recommend continuing [employer] Sotalol 80 mg BID and Eliquis 5 mg BID. F/U with EP as OP Admission and Anticipated Discharge Date Admission Date: March 30, 2025 Subjective Patient on exam is lying in bed in NAD; no c/o cp, sob, palpitations, dizziness, LOC, leg swelling; ambulatory with no symptoms Review of Systems Review of Systems: as per hpi Physical Exam Constitutional: WD/WN, vitals as above Eyes: anicteric sclera, pink conjunctiva Neck: trachea midline, no thyromegaly Respiratory: normal respiratory effort, lungs clear to auscultation Cardiovascular: RRR, no murmur, no edema Gastrointestinal (Abdomen): soft, NT, BS+ Neurologic: PERRL, EOMI, accommodation nl, no face palsy, no dysarthria Psychiatric: Mood: + anxious mood Results & Data Vital Signs (Past 12 Hours) Vital Signs Vital Signs Temp 37.0 C 04/01/25 12:20 Pulse 58 L 04/01/25 12:20 Resp 18 04/01/25 12:20 BP 93/54 L 04/01/25 12:20 Pulse Ox 96 04/01/25 12:20 O2 Del Method Room Air 04/01/25 12:18 Intake & Output 03/31/25 04/01/25 04/01/25 18:59 06:59 18:59 Intake Total 2620 / 4145 1525 / 4145 1476 / 1476 Balance 2620 / 4145 1525 / 4145 1476 / 1476 Weight 51.7 kg 51.7 kg Intake: IV 999 936 / 936 Sodium Chloride 0.9% 1,000 ml @ 999 / 1999 936 / 936 80 mls/hr IV .[id number] EFREN Rx#: [id number] Oral 980 / 1505 525 / 1505 540 / 540 Other 640 / 640 Other: Other Intake Source IV fluid # Unmeasured Voids 4 4 [facility] Pulse Resp BP Pulse Ox O2 Del Method 04/01/25 12:20 37.0 C 58 L 18 93/54 L 96 04/01/25 12:18 37.0 C 58 L 18 93/54 L 96 Room Air 04/01/25 07:56 64 04/01/25 07:53 Room Air 04/01/25 07:35 36.7 C 59 L 19 103/66 96 Room Air 04/01/25 03:26 36.7 C 60 18 90/54 L 97 Room Air Laboratory Results Laboratory Results WBC 10.17 K/ul (4.8-10.8) 03/30/25 14:33 RBC 3.77 M/uL (4.20-5.40) L 03/30/25 14:33 Hgb 12.5 g/dL (12.0-16.0) 03/30/25 14:33 Hct 37.0 % (37.0-47.0) 03/30/25 14:33 MCV 98.1 fL (80.0-100.0) 03/30/25 14:33 MCH 33.2 pg (25.0-34.0) 03/30/25 14:33 MCHC 33.8 g/dL (32.0-36.0) 03/30/25 14:33 RDW Std Deviation 46.2 fL (36.4-46.3) 03/30/25 14:33 RDW Coeff of Mishel 12.9 % (11.5-14.5) 03/30/25 14:33 Plt Count 303 K/uL (130-400) 03/30/25 14:33 MPV 10.6 fL (9.4-12.4) 03/30/25 14:33 Immature Gran % (Auto) 0.4 % 03/30/25 14:33 Neut % (Auto) 77.6 % 03/30/25 14:33 Lymph % (Auto) 13.0 % 03/30/25 14:33 Carver % (Auto) 7.8 % 03/30/25 14:33 Eos % (Auto) 0.8 % 03/30/25 14:33 Baso % (Auto) 0.4 % 03/30/25 14:33 Neut # (Auto) 7.90 K/uL (1.40-6.50) H 03/30/25 14:33 Lymph # (Auto) 1.32 K/uL (1.20-3.40) 03/30/25 14:33 Carver # (Auto) 0.79 K/uL (0.11-0.59) H 03/30/25 14:33 Eos # (Auto) 0.08 K/uL (0.00-0.50) 03/30/25 14:33 Baso # (Auto) 0.04 K/uL (0.00-0.20) 03/30/25 14:33 Immature Gran # (Auto) 0.04 K/uL (0.01-0.20) 03/30/25 14:33 PT 11.5 Seconds (9.0-12.0) 03/30/25 14:33 INR 1.1 (0.9-1.1) 03/30/25 14:33 Sodium 137 mmol/L (136-145) 03/30/25 14:33 Potassium 4.0 mmol/L (3.5-5.1) 03/30/25 14:33 Chloride 108 mmol/L (98-107) H 03/30/25 14:33 Carbon Dioxide 24 mmol/L (21-32) 03/30/25 14:33 Anion Gap 5 (3-11) 03/30/25 14:33 BUN 15 mg/dl (6-23) 03/30/25 14:33 Creatinine 0.56 mg/dl (0.6-1.2) L 03/30/25 14:33 Est Cr Clr Drug Dosing 107.8 ml/min 03/30/25 14:33 eGFR 116.06 03/30/25 14:33 BUN/Creatinine Ratio 26.8 (10-20) H 03/30/25 14:33 Glucose 91 mg/dl (70-99(Fasting)) 03/30/25 14:33 Calcium 9.3 mg/dl (8.6-10.3) 03/30/25 14:33 Magnesium 2.0 mg/dl (1.7-2.4) 03/30/25 14:33 Total Bilirubin 0.7 mg/dl (0.2-1.0) 03/30/25 14:33 AST 11 U/L (13-39) L 03/30/25 14:33 ALT 7 U/L (7-52) 03/30/25 14:33 Alkaline Phosphatase 73 U/L (34-104) 03/30/25 14:33 Troponin I High Sens 3.5 pg/ml (0-14) 03/30/25 14:33 Total Protein 7.0 gm/dl (6.0-8.3) 03/30/25 14:33 Albumin 3.5 gm/dl (3.4-5.0) 03/30/25 14:33 Globulin 3.5 gm/dl (2.5-4.0) 03/30/25 14:33 Albumin/Globulin Ratio 1.0 (0.9-2) 03/30/25 14:33 Lipase 20 U/L (11-82) 03/30/25 14:33 TSH 0.847 uIu/ml (0.300-4.500) 03/30/25 14:33 HCG, Qual Negative (Negative) 03/30/25 14:33 Impressions Chest X-Ray 03/30/25 13:43 COMPARISON: 01/21/2025 FINDINGS: HEART: Normal in size. LUNGS: No focal consolidation, pleural effusion, or vascular congestion. MEEDIASTINUM: Unremarkable. BONES: Intact. OTHER: Unremarkable. IMPRESSION: No acute disease. Electronically signed by Keri Wen 03-30-2025 2:23 PM Diagnostic Findings Intake and Output 03/31/25 04/01/25 04/01/25 22:59 06:59 14:59 Intake Total 1979 525 / 4145 1476 / 1476 Balance 1979 525 / 4145 1476 / 1476 Intake: IV 999 936 / 936 Sodium Chloride 0.9% 1,000 ml @ 999 / 1999 936 / 936 80 mls/hr IV .[id number] EFREN Rx#: [id number] Oral 980 / 1505 525 / 1505 540 / 540 Other: # Unmeasured Voids 4 4 Weight 51.7 kg 51.7 kg Weight Measurement Method Built in [facility] Patient Weight 04/02/25 06:59 Weight 51.7 kg Medications Administered Home Medications Medication Instructions Recorded Confirmed Last Taken levothyroxine 88 mcg tablet 88 mcg PO DAILYBB 01/21/25 03/30/25 01/21/25 apixaban 5 mg tablet (Eliquis) 5 mg PO AMHS 03/30/25 03/30/25 Unknown multivitamin 1 tab PO QAM 03/30/25 03/30/25 Unknown sotalol 80 mg tablet 80 mg PO AMHS 03/30/25 03/30/25 Unknown Active Medications Generic Name Dose Route Start Last Admin Trade Name Mayco PRN Reason Stop Dose Admin Acetaminophen 650 mg 03/30/25 20:41 03/31/25 19:32 Acetaminophen 325 Mg Tab PO 04/29/25 20:40 650 mg Q4H PRN Administration Pain or Fever Apixaban 5 mg 03/30/25 21:00 04/01/25 09:16 Apixaban 5 Mg Tablet PO 04/29/25 20:59 5 mg AMHS EFREN Administration Sodium Chloride 1,000 mls @ 80 mls/hr 03/30/25 18:30 04/01/25 09:17 Nss IV 04/02/25 18:29 80 mls/hr .[id number] EFREN Administration Levothyroxine Sodium 88 mcg 03/31/25 06:30 04/01/25 06:18 Levothyroxine Sodium 88 Mcg Tablet PO 04/30/25 06:29 88 mcg DAILYBB EFREN Administration Multivitamins 1 tab 03/31/25 09:00 04/01/25 09:16 Multivitamin Tab PO 04/30/25 08:59 1 tab QAM EFREN Administration Sotalol HCl 80 mg 03/30/25 21:00 04/01/25 09:16 Sotalol Hcl 80 Mg Tab PO 04/29/25 20:59 80 mg AMHS EFREN Administration PG Care Time/CCT Total # of Minutes Spent Total Time Spent with Patient: Total time spent is greater than 50% in coordination of care (as documented) at patient's floor/unit and/or counseling patient: Coding Level of Care Code 67566 SUB INP/OBS CARE 3/50MIN Diagnoses Symptomatic PVCs I49.3 History of atrial flutter Z86.79 Paroxysmal atrial fibrillation I48.0
--- NOTE | 2025-04-02 07:58 | Discharge Summary ---
Date of Service April 02, 2025 Admission HPI Per Admitting Provider Patient is a 45 year old female with a past medical history of hypothyroidism, atrial flutter with RVR on sotalol who presents to the ED with complaint of tachycardia and headache. Follows functional medicine outpatient and had large amount of blood drawn with workup 2 days ago. Following the blood draw, she felt excessively tired. Yesterday morning her heart rate was in the 130's, she rehydrated herself with fluids and electrolytes with yesterday with improvement. She feels her symptoms relate to having blood drawn as this has happened before. Also endorses a headache x 1 week that "bounces around" her head and is sharp. When her heart rate is elevated, she hears a buzzing with the headache. Today, she felt lightheaded when changing position from the ground to standing; no falls or chest pain associated with these events. Denies illnesses, fever, chills, shortness of breath, chest pain, swelling, blood in urine or stool. Denies fever, chills, weight loss, weakness, cognitive changes, vision changes, chest pain, SOB, swelling, difficulty breathing, urinary concerns, N/V/D, joint swelling/pain, ambulation difficulty, skin rashes, lesions, bleeding, bruising. Recent confinement at [facility] 01/23/25- 01/26/25 for rapid ventricular response and hypotension and was initially managed on low dose metoprolol with return of symptomatic PAF/Flutter. She was then started on sotalol with EP follow up outpatient. Echo workup from last admission with preserved LVEF, no valvular disease. History of alma's granulomatosis and follows rheumatology. Also with possible Crohn's disease. In the ED, patient was hemodynamically stable with an unremarkable lab workup. Mag stable. No evidence of anemia with Hgb 12.5. Was initially tachycardic on the way to the hospital today, but then heart rate stabilized once here in ED. In triage, her heart rate dropped to 54 and at some points, heart rate was even lower to the 30's. EKG showing sinus rhythm with PVCs, rate 85 bpm, QTc 442. Euthyroid on lab workup. Chest Xray without evidence of acute disease. Given 1L NSS in ED. NSR on the monitor with heart rate 63-70 on my read with a blood pressure 107/72 following. Discussed with ED provider labs, HPI, management in the ED and reason for additional observation for bradycardia. History obtained primarily from the patient and via hospitalization record. The patient's was at the bedside and assisted with history of present illness. External chart review obtained from [facility]. Admission Exam Per Admitting Provider Physical Exam: VITALS: Reviewed. WEIGHT/BMI reviewed. GEN: Healthy appearing, well-developed, NAD. PSYCH: Good Judgment. AOx3. Normal memory, mood, and affect. HEENT -Head: NC/AT; -Eyes: PERRL, EOMI. No discharge or redn ess; -Ears: External ears are normal. -Nose: Normal nares. -Mouth and throat: MMM. Normal gums, muc charles, palate,. Good dentition. NECK: Supple, with no masses. CV: RRR, no m/r/g. LUNGS: CTAB, no w/r/c. ABD: Soft, NT/ND, NBS, no masses or organomegaly. : N/A SKIN: Warm, well perfused. No skin rashes or abnormal lesions. MSK: No deformities, Normal gait. EXT: No clubbing, cyanosis, or edema. NEURO: CN II-XII grossly intact. No focal deficits. Principal Diagnosis Paroxysmal atrial fibrillation Discharge Exam Lying in bed without any acute distress but looked very anxious Constitutional + ill appearing and + thin Eyes PERRL, conjunctivae normal, anicteric sclerae ENMT external ear and nose normal, oropharynx normal Neck trachea midline, no thyromegaly Respiratory no respiratory distress Auscultation: lungs clear to auscultation bilaterally Cardiovascular Rate/Rhythm: regular rate, regular rhythm and + bradycardic Heart Sounds: normal S1 and normal S2; no murmur Extremities: no edema Gastrointestinal (Abdomen) Inspection/Auscultation: normal bowel sounds; abdomen not distended Percussion/Palpation: abdomen soft; abdomen nontender Neurologic normal touch/pain/proprioception and moves all extremities; no focal motor deficits Lymphatic no cervical or axillary lymphadenopathy Discharge Data Allergies Allergy/AdvReac Type Severity Reaction Status Date / Time Penicillins Allergy Severe FULL BODY Verified 03/30/25 16:05 RASH Sulfa (Sulfonamide Allergy Severe ANAPHYLAXIS Verified 03/30/25 16:05 Antibiotics) amoxicillin Allergy Intermediate rash Verified 03/30/25 16:05 Macrolide Antibiotics Allergy Intermediate rash Verified 03/30/25 16:05 nitrofurantoin Allergy Unknown CAN'T Verified 01/21/25 22:17 REMEMBER troleandomycin Allergy Rash Verified 03/30/25 16:07 hydromorphone AdvReac Intermediate Pt states Verified 01/21/25 22:17 muscles in neck&all over become tight and painful mesalamine AdvReac Intermediate multiple Verified 03/30/25 16:05 side effects Consultations 03/31/25 11:12 Consult Cardiology Routine Hospital Course (1) Tachy-patito syndrome: (2) Paroxysmal atrial fibrillation: (3) Hypothyroidism: Plan Patient is a 45 year old female with a past medical history of hypothyroidism, atrial flutter with RVR on sotalol who presents to the ED with complaint of tachycardia and headache. Follows functional medicine outpatient and had large amount of blood drawn with workup 2 days ago. Following the blood draw, she felt excessively tired. Yesterday morning her heart rate was in the 130's, she rehydrated herself with fluids and electrolytes with yesterday with improvement. She feels her symptoms relate to having blood drawn as this has happened before. Also endorses a headache x 1 week that "bounces around" her head and is sharp. When her heart rate is elevated, she hears a buzzing with the headache. Today, she felt lightheaded when changing position from the ground to standing; no falls or chest pain associated with these events. Denies illnesses, fever, chills, shortness of breath, chest pain, swelling, blood in urine or stool. History Alma granulomatosis and follows Rheumatology [facility]. #Tachy-patito syndrome #Hx Paroxysmal AFib/Flutter Admit for observation Med tele Presenting with tachycardia, fatigue, headache x 1 day following extensive blood work OP without evidence anemia here Recent hospitalization [facility] 01/23/25- 01/26/25 for RVR and hypotension, initially managed on low dose metoprolol with return of symptomatic PAF/Flutter; now on sotalol with EP outpatient follow up. Echo workup from last admission with preserved LVEF, no valvular disease. Fluid resuscitation in ED; HR's stabilized and normotensive; will give NSS maintenance fluids Will need overnight tele observation Continue home sotalol-has been getting it regularly and did not miss a dose Follow lytes; keep Mag >2 may need IV supplementation, patient not tolerating oral mag supplem d/t GI issues Remains stable and complains to have minimal sinus pressure and ear pressure without any palpitation or chest symptoms Appreciate cardiology input and recommendation She remains stable without any significant bradycardia or bradycardia arrhythmia She refused to have any blood test and she mentioned that she has been feeling much better and wants to be discharged She will be discharged home this afternoon #Headache and Tinnitus Sharp headache with tinnitus, poss associated with tachycardia; history of wegeners and follows [facility] diagnosed 2019 has been on prednisone and methotrexate x [address] head for tinnitus workup; patient refused No definitive sinusitis but she complains to have sinus pressure with noted painwill not give any antibiotic #Hypothyroidism Euthyroid on lab workup Continue home levothyroxine DVT Ppx: on Eliquis; Teds Code status: Full PCP: Dr. Daily Dispo: Admit I spent total of 35 minutes seeing the patient, examining her, going to the chart and investigations, planning of care In discussion with the specialist. Total Time Total Time Spent Total Time Spent (In Minutes): 35 minutes Discharge Plan Discharge Items Patient Disposition: Home - Self-Care Reason For Visit: TACHYCARDIA Discharge Diagnosis: Paroxysmal atrial fibrillation Condition on Discharge: Fair Activity: Resume your previous activity Non-emergency contact: Primary Care Provider Call non-emergency contact if: you have any medication questions and your symptoms worsen Follow-up/Referrals: Jn Cuevas MD [Primary Care Provider] - 04/07/25 11:00 am (Date & Time 04/07/2025 11:00 AM Provider: Maria Elena Daily MD General Internal Medicine [facility] ) Diet: Heart Healthy Addtl Attending Provider Instructions: Please take precaution to avoid falls Strongly advised to cut down the energy drink and discontinue if possible No change in your medications Please keep appointments with your healthcare providers Pending Studies at Discharge: No Stand-Alone Forms: My [employer], Smoking Cessation Medications and DC Order Prescriptions: Continued levothyroxine 88 mcg tablet 88 mcg PO DAILYBB sotalol 80 mg tablet 80 mg PO AMHS multivitamin Tablet 1 tab PO QAM Eliquis 5 mg tablet 5 mg PO AMHS Discharge Orders: Discharge Order (Routine); Ordered 04/01/25 Ordered By: Kash Brady Admission Data Admit Date/Time: 03/30/25 18:23 Attending Provider: Kash Brady Admit Provider: Tera Herrera Primary Care Provider: Jn Cuevas Other Providers: Kd Lopez; Cande Mehta; Tk Hinojosa; Tristan Golden; Ronnie Ruiz; Chetan Hansen; Kendrick Cuenca; Sindy Parker; Sushma Sen; Kay Jordan; Tracy Bui; Cande Dasilva; Gee Carmen; Joel Sims; Maria R Montalvo; Jennifer Flores; Siena Munson; Tequila Jerome; Nicola Key; Brooke Golden; Lanette Coleman; Angelito Croft; Richie Gill N; Kayleigh Kumar Other Interventions: Discharge Summary Assessment (RN) Last Done: 04/01/25 12:20
== END 2025-04-01 14:18 | disposition home or self-care (01) ==
LOC: ED 13:34 → SUATTDRO 20:12 → INTOOBSV 20:12 → 4W 20:12